=== PATIENT | female | born 1970 | race Caucasian/White ===

== ENCOUNTER 2016-12-15 08:40 | Emergency (ER) | payer OTHER ==
[2016-12-15] MEDS ORDERED: METOCLOPRAMIDE INJ 10MG/2ML VIAL (J2765) As Ordered ONE (09:26)
[2016-12-15] MEDS ORDERED: diphenhydrAMINE INJ 50MG/ML VIAL (J1200) As Ordered ONE (09:26)
[2016-12-15] MEDS ORDERED: ISOVUE-370 76% 100ML VIAL (Q9967) As Ordered ONE (09:41)
[2016-12-15 10:02] LABS: BASO % 0.3 % (0.0-1.0); EOS # 0.1 K/mm3 (0.0-0.50); EOS % 0.7 % (0.0-3.0); LARGE UNSTAINED CELL # 0.1 K/mm3 (0.0-0.4); LARGE UNSTAINED CELL % 1.1 % (0.0-4.0); LYMPH # 1.6 K/mm3 (1.5-4.5); LYMPH % 17.7 % (24.0-44.0); MEAN CORPUSCULAR HGB CONC 32.7 g/dl (32.0-36.5); MEAN CORPUSCULAR VOLUME 91.8 fl (80.0-96.0); MONO # 0.4 K/mm3 (0.0-0.8); MONO % 4.2 % (0.0-5.0); NEUTROPHILS % 76.1 % (36.0-66.0); PLATELET COUNT, AUTOMATED 394 k/mm3 (150-450); WHITE BLOOD COUNT 9.1 K/mm3 (4.0-10.0)
[2016-12-15 10:16] LABS: ALBUMIN 4.1 GM/DL (3.2-5.2); ALBUMIN/GLOBULIN RATIO 1.14 (1.00-1.93); ALKALINE PHOSPHATASE 75 U/L (45-117); ALT/SGPT 20 U/L (12-78); AMYLASE 74 U/L (25-115); ANION GAP 8 MEQ/L (8-16); AST/SGOT 13 U/L (15-37); BILIRUBIN,DIRECT < 0.1 MG/DL (0.0-0.2); BILIRUBIN,TOTAL 0.3 MG/DL (0.2-1.0); BLOOD UREA NITROGEN 8 MG/DL (7-18); CARBON DIOXIDE LEVEL 27 MEQ/L (21-32); CHLORIDE LEVEL 106 MEQ/L (98-107); CREATININE FOR GFR 0.72 MG/DL (0.55-1.02); GLOMERULAR FILTRATION RATE > 60.0 (>58); GLUCOSE, FASTING 97 MG/DL (70-105); POTASSIUM SERUM 3.8 MEQ/L (3.5-5.1); SODIUM LEVEL 141 MEQ/L (136-145); TOTAL PROTEIN 7.7 GM/DL (6.4-8.2)
--- NOTE | 2016-12-15 12:22 | EDDOCDS ---
Physician Documentation [facility] Name: Veronica Wiggins Age: 46 yrs Sex: Female : 1970 Arrival Date: 12/15/2016 Time: 08:40 Bed TR8 Private MD: Dorcas Monk Disposition: 12/15/16 11:55 Discharged to Home/Self Care. Impression: Left upper quadrant abdominal tenderness. - Condition is Stable. - Discharge Instructions: Abdominal Pain, Women. - Prescriptions for Bentyl 10 mg Oral Capsule - take 1 capsule by ORAL route every 6 hours As needed; 40 capsule. - Medication Reconciliation, Local Pharmacy Hours form. - Follow up: Dorcas Monk; When: Call to arrange an appointment; Reason: Further diagnostic work-up, Recheck today's complaints, Continuance of care. - Problem is new. - Symptoms have improved. Historical: - Allergies: no known allergies; - Home Meds: 1. levothyroxine 175 mcg Oral tab 1 tab once daily - PMHx: possible thyroid CA; - PSHx: Thyroidectomy; Cesearean Section; Laparoscopy; - Social history: Smoking status: Patient states former smoker of tobacco. No barriers to communication noted, The patient speaks fluent Indian. - Family history: Not pertinent. - : The pt / caregiver states he / she is not on anticoagulants. Home medication list is obtained from the patient. - Exposure Risk Screening:: None identified. 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 3 in. (160.02 cm) (R); Pain 7/10; 10:43 BP 114 / 68; Pulse 70; Resp 16; Temp 97.7(O); Pulse Ox 98% on R/A; Pain 3/10; dem1 12:03 BP 109 / 65; Pulse 73; Resp 16; Temp 97.4(O); Pulse Ox 98% on R/A; Pain 3/10; dem1 08:52 Body Mass Index 28.70 (73.48 kg, 160.02 cm) j MDM: 09:04 Financial registration complete. lg 09:10 [facility] Payment Agreement was scanned into [employer] and attached to record. lg 09:20 NS 0.9% 1000 ml IV at bolus once ordered. btw 09:20 IV Saline Lock ordered. btw 09:20 Undress patient appropriately for examination ordered. btw 09:20 Metoclopramide 20 mg IV at 80 mg/hr once over 15 mins ordered. btw 09:20 diphenhydrAMINE 50 mg IVP once ordered. btw 09:21 Amylase Ordered. EDMS 09:21 Basic Metabolic Profile Ordered. EDMS 09:21 CBC with Diff Ordered. EDMS 09:21 Lipase Ordered. EDMS 09:21 Liver Profile Ordered. EDMS 09:21 Urinalysis Ordered. EDMS 09:21 Urine Culture Ordered. EDMS 09:21 CT ABD & PELVIS: IV Contrast Only Ordered. EDMS 09:21 NOTHING BY MOUTH+DIET ordered. EDMS 10:26 CBC with Diff Reviewed. btw 10:26 Liver Profile Reviewed. btw 10:26 Urinalysis Reviewed. btw 10:26 Amylase Reviewed. btw 10:26 Basic Metabolic Profile Reviewed. btw 10:26 Lipase Reviewed. btw Administered Medications: 09:48 Drug: NS 0.9% 1000 ml [sodium chloride 0.9 % intravenous solution] Route: IV; Rate: kc3 bolus; Site: left antecubital; 09:48 Drug: Metoclopramide 20 mg [metoclopramide 5 mg/mL injection solution] Route: IV; Rate: kc3 80 mg/hr; Infused Over: 15 mins; Site: left antecubital; 09:48 Drug: diphenhydrAMINE 50 mg [diphenhydramine 50 mg/mL injection solution (1 mL)] Route: kc3 IVP; Site: left antecubital; 10:07 Follow up: Response: Pain is decreased kc3 Signatures: Dispatcher [employer] EDNicole Sanchez Reg Reg lg Raymond, Jessica, RN RN Adonis Mackenzie PA PA btw Janay Lemus RN RN kc3 The chart was reviewed and I authenticate all verbal orders and agree with the evaluation and treatment provided.Attachments: 09:10 [facility] Payment Agreement lg MTDD
--- NOTE | 2016-12-15 12:22 | EDDOCDS ---
Nurse's Notes [facility] Name: Veronica Wiggins Age: 46 yrs Sex: Female : 1970 Arrival Date: 12/15/2016 Time: 08:40 Bed TR8 Private MD: Dorcas Monk Diagnosis: Left upper quadrant abdominal tenderness Presentation: 12/15 08:49 Presenting complaint: Patient states: LUQ pain radiating to rest of abdomen and back jjr began a little over a week ago, pt reports bloating and nausea with meals for past week, did have loose bowel movements last week, Dorcas Monk PCP ordered US and xrays completed this past Sunday with no significant findings. Acute neurological deficits are not present. Mechanism of Injury: No Mechanism of Injury. Adult Sepsis Screening: The patient does not have new or worsening altered mentation. Patient's respiratory rate is less than 22. Systolic blood pressure is greater than 100. Patient has a qSOFA score of 0- Negative Sepsis Screen. Suicide/Homicide risk assessment- the patient denies having any suicidal and/or homicidal ideations and does not present with any other emotional, behavioral or mental health complaints. 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 Transition of care: patient was received from a primary care office; Dorcas Monk. 08:49 Acuity: NEMO Level 3 r 08:49 Method Of Arrival: Walkin/Carried/Asstd jjr Triage Assessment: 08:55 General: Appears uncomfortable, Behavior is appropriate for age. Pain: Location: left jjr upper quadrant. Pt Declines HIV testing. GI: Reports bloating, upper abdominal pain, nausea. : Reports vaginal bleeding that is spotty since 2 days ago. Musculoskeletal: No deficits noted. 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 levothyroxine 175 mcg Oral tab 1 tab once daily - PMHx: possible thyroid CA; - PSHx: Thyroidectomy; Cesearean Section; Laparoscopy; - Social history: Smoking status: Patient states former smoker of tobacco. No barriers to communication noted, The patient speaks fluent Setswana. - Family history: Not pertinent. - : The pt / caregiver states he / she is not on anticoagulants. Home medication list is obtained from the patient. - Exposure Risk Screening:: None identified. Screenin:49 Screening information is obtained from the patient. Fall risk: No risks identified. kc3 Assistance ADL's: requires no assistance with activities of daily living. Abuse/DV Screen: The patient / caregiver reports he/she is: not in a situation that causes fear, pain or injury. Nutritional screening: No deficits noted. Advance Directives: Currently, there is no health care proxy. home support is adequate. Assessment: 09:48 General: Appears uncomfortable, Behavior is appropriate for age, cooperative. Pain: kc3 Location: left upper quadrant. Neurological: Level of Consciousness is awake, alert, obeys commands, Oriented to person, place, time. Respiratory: Airway is patent Respiratory effort is even, unlabored. GI: Abdomen is non- distended Bowel sounds present X 4 quads. Abd is soft Abd is tender to palpation in left upper quadrant Reports upper abdominal pain, nausea. Derm: Skin is pink, warm & dry. Musculoskeletal: Circulation, motion, and sensation intact. 11:00 Reassessment: Patient appears in no apparent distress at this time. Patient states kc3 feeling better. Patient states symptoms have improved. 12:19 General: Appears in no apparent distress, comfortable, Behavior is appropriate for age, kc3 cooperative. Neurological: Level of Consciousness is awake, alert, obeys commands, Oriented to person, place, time. Respiratory: Airway is patent Respiratory effort is even, unlabored. Derm: Skin is pink, warm & dry. Vital Signs: 08:52 BP 143 / 87; Pulse 107; Resp 18; Temp 97.8(O); Pulse Ox 100% on R/A; Weight 73.48 kg [facility] (R); Height 5 ft. 3 in. (160.02 cm) (R); Pain 7/10; 10:43 BP 114 / 68; Pulse 70; Resp 16; Temp 97.7(O); Pulse Ox 98% on R/A; Pain 3/10; dem1 12:03 BP 109 / 65; Pulse 73; Resp 16; Temp 97.4(O); Pulse Ox 98% on R/A; Pain 3/10; dem1 08:52 Body Mass Index 28.70 (73.48 kg, 160.02 cm) [facility] Vitals: 08:52 Log In Time: December 15, 2016 at 08:38. [facility] ED Course: 08:41 Patient visited by Fatemeh Jernigan. mm15 08:41 Dorcas Monk is Private Physician. mm15 08:41 Patient moved to Waiting mm15 08:51 Triage Initiated jjr 08:57 Patient moved to Triage 1 jjr 09:03 Adonis Box PA is PHCP. btw 09:03 Shine Marquez MD is Attending Physician. btw 09:03 Patient visited by Adonis Box PA. btw 09:10 [facility] Payment Agreement was scanned into [employer] and attached to record. lg 09:23 Patient moved to I3 / M3 jjr 09:47 Liver Profile Sent. kc3 09:47 Lipase Sent. kc3 09:47 CBC with Diff Sent. kc3 09:47 Basic Metabolic Profile Sent. kc3 09:47 Amylase Sent. kc3 09:50 The patient / caregiver is instructed regarding the plan of care and ED course. kc3 09:50 Inserted saline lock: 20 gauge in left antecubital area and blood collected. The kc3 patient tolerated the procedure well. Labs drawn. (by ED staff). Sent per order to lab. 09:51 Patient visited by Janay Lemus RN. kc3 10:27 Patient visited by Janay Lemus RN. kc3 10:28 Patient moved to DC dem1 10:36 Patient moved to I3 / kc3 10:43 Patient visited by Adolph Armendariz. dem1 11:55 Dorcas Monk is Referral Physician. btw 12:04 Patient visited by Adolph Armendariz. dem1 12:12 Patient moved to [facility] dem1 12:20 Discontinued IV lock intact, bleeding controlled, pressure dressing applied, No kc3 redness/swelling at site. No procedures done that require assistance. Administered Medications: 09:48 Drug: NS 0.9% 1000 ml [sodium chloride 0.9 % intravenous solution] Route: IV; Rate: kc3 bolus; Site: left antecubital; :48 Drug: Metoclopramide 20 mg [metoclopramide 5 mg/mL injection solution] Route: IV; Rate: kc3 80 mg/hr; Infused Over: 15 mins; Site: left antecubital; 09:48 Drug: diphenhydrAMINE 50 mg [diphenhydramine 50 mg/mL injection solution (1 mL)] Route: kc3 IVP; Site: left antecubital; 10:07 Follow up: Response: Pain is decreased kc3 Order Results: Lab Order: Amylase; 12/15/16 09:25 Test: AMYLASE; Value: 74; Range: 25-115; Units: U/L; Status: F Lab Order: Basic Metabolic Profile; 12/15/16 09:25 Test: GLUCOSE, FASTING; Value: 97; Range: 70-105; Units: MG/DL; Status: F Test: BLOOD UREA NITROGEN; Value: 8; Range: 7-18; Units: MG/DL; Status: F Test: CREATININE FOR GFR; Value: 0.72; Range: 0.55-1.02; Units: MG/DL; Status: F Test: GLOMERULAR FILTRATION RATE; Value: > 60.0; Range: >58; Status: F Test: SODIUM LEVEL; Value: 141; Range: 136-145; Units: MEQ/L; Status: F Test: POTASSIUM SERUM; Value: 3.8; Range: 3.5-5.1; Units: MEQ/L; Status: F Test: CHLORIDE LEVEL; Value: 106; Range: 98-107; Units: MEQ/L; Status: F Test: CARBON DIOXIDE LEVEL; Value: 27; Range: 21-32; Units: MEQ/L; Status: F Test: ANION GAP; Value: 8; Range: 8-16; Units: MEQ/L; Status: F Test: CALCIUM LEVEL; Value: 9.0; Range: 8.5-10.1; Units: MG/DL; Status: F Test Note: ; Units are mL/min/1.73 m2 Chronic Kidney Disease Staging per NKF: Stage I & II GFR >=60 Normal to Mildly Decreased Stage III GFR 30-59 Moderately Decreased Stage IV GFR 15-29 Severely Decreased Stage V GFR <15 Very Little GFR Left ESRD GFR <15 on TICKETER Lab Order: CBC with Diff; 12/15/16 09:25 Test: WHITE BLOOD COUNT; Value: 9.1; Range: 4.0-10.0; Units: K/mm3; Status: F Test: RED BLOOD COUNT; Value: 4.78; Range: 4.00-5.40; Units: M/mm3; Status: F Test: HEMOGLOBIN; Value: 14.3; Range: 12.0-16.0; Units: g/dl; Status: F Test: HEMATOCRIT; Value: 43.8; Range: 36.0-47.0; Units: %; Status: F Test: MEAN CORPUSCULAR VOLUME; Value: 91.8; Range: 80.0-96.0; Units: fl; Status: F Test: MEAN CORPUSCULAR HEMOGLOBIN; Value: 30.0; Range: 27.0-33.0; Units: pg; Status: F Test: MEAN CORPUSCULAR HGB CONC; Value: 32.7; Range: 32.0-36.5; Units: g/dl; Status: F Test: RED CELL DISTRIBUTION WIDTH; Value: 12.0; Range: 11.5-14.5; Units: %; Status: F Test: PLATELET COUNT, AUTOMATED; Value: 394; Range: 150-450; Units: k/mm3; Status: F Test: NEUTROPHILS %; Value: 76.1; Range: 36.0-66.0; Abnormal: Above high normal; Units: %; Status: F Test: LYMPH %; Value: 17.7; Range: 24.0-44.0; Abnormal: Below low normal; Units: %; Status: F Test: MONO %; Value: 4.2; Range: 0.0-5.0; Units: %; Status: F Test: EOS %; Value: 0.7; Range: 0.0-3.0; Units: %; Status: F Test: BASO %; Value: 0.3; Range: 0.0-1.0; Units: %; Status: F Test: LARGE UNSTAINED CELL %; Value: 1.1; Range: 0.0-4.0; Units: %; Status: F Test: NEUTROPHILS #; Value: 7.0; Range: 1.8-7.7; Units: K/mm3; Status: F Test: LYMPH #; Value: 1.6; Range: 1.5-4.5; Units: K/mm3; Status: F Test: MONO #; Value: 0.4; Range: 0.0-0.8; Units: K/mm3; Status: F Test: EOS #; Value: 0.1; Range: 0.0-0.50; Units: K/mm3; Status: F Test: BASO #; Value: 0.0; Range: 0.0-0.2; Units: K/mm3; Status: F Test: LARGE UNSTAINED CELL #; Value: 0.1; Range: 0.0-0.4; Units: K/mm3; Status: F Lab Order: Lipase; [facility] 12/15/16 09:25 Test: LIPASE; Value: 277; Range: 73-393; Units: U/L; Status: F Lab Order: Liver Profile; [facility] 12/15/16 09:25 Test: AST/SGOT; Value: 13; Range: 15-37; Abnormal: Below low normal; Units: U/L; Status: F Test: ALT/SGPT; Value: 20; Range: 12-78; Units: U/L; Status: F Test: ALKALINE PHOSPHATASE; Value: 75; Range: 45-117; Units: U/L; Status: F Test: BILIRUBIN,TOTAL; Value: 0.3; Range: 0.2-1.0; Units: MG/DL; Status: F Test: BILIRUBIN,DIRECT; Value: < 0.1; Range: 0.0-0.2; Units: MG/DL; Status: F Test: TOTAL PROTEIN; Value: 7.7; Range: 6.4-8.2; Units: GM/DL; Status: F Test: ALBUMIN; Value: 4.1; Range: 3.2-5.2; Units: GM/DL; Status: F Test: ALBUMIN/GLOBULIN RATIO; Value: 1.14; Range: 1.00-1.93; Status: F Lab Order: Urinalysis; [facility] 12/15/16 09:27 Test: APPEARANCE, URINE; Value: CLEAR; Range: CLEAR; Status: F Test: COLOR, URINE; Value: YELLOW; Range: YELLOW; Status: F Test: PH,URINE; Value: 5.0; Range: 5.0-9.0; Units: UNITS; Status: F Test: SPECIFIC GRAVITY URINE AUTO; Value: 1.011; Range: 1.002-1.035; Status: F Test: PROTEIN, URINE AUTO; Value: NEGATIVE; Range: NEGATIVE; Units: mg/dL; Status: F Test: GLUCOSE, URINE (UA) AUTO; Value: NEGATIVE; Range: NEGATIVE; Units: mg/dL; Status: F Test: KETONE, URINE AUTO; Value: NEGATIVE; Range: NEGATIVE; Units: mg/dL; Status: F Test: UROBILINOGEN, URINE AUTO; Value: 0.2; Range: 0.0-2.0; Units: mg/dL; Status: F Test: BILIRUBIN, URINE AUTO; Value: NEGATIVE; Range: NEGATIVE; Status: F Test: NITRITE, URINE AUTO; Value: NEGATIVE; Range: NEGATIVE; Status: F Test: LEUKOCYTE ESTERASE, URINE AUTO; Value: NEGATIVE; Range: NEGATIVE; Status: F Test: BLOOD, URINE BLOOD; Value: 2+; Range: NEGATIVE; Abnormal: Above high normal; Status: F Test: WBC, URINE AUTO; Value: 1; Range: 0-3; Units: /HPF; Status: F Test: RBC, URINE AUTO; Value: 5; Range: 0-3; Abnormal: Above high normal; Units: /HPF; Status: F Test: BACTERIA, URINE AUTO; Value: NEGATIVE; Range: NEGATIVE; Status: F Test: SQUAMOUS EPITHELIAL CELL UR AU; Value: 0; Range: 0-6; Units: /HPF; Status: F Test: MUCUS, URINE; Value: SMALL; Range: NEGATIVE; Status: F Test: HYALINE CAST, URINE AUTO; Value: 0; Range: 0-1; Units: /LPF; Status: F Outcome: 10:36 CT Study completed. 3 11:55 Discharge ordered by Provider. [facility] 12:20 Discharge Assessment: Patient awake, alert and oriented x 3. No cognitive and/or kc3 functional deficits noted. Patient verbalized understanding of disposition instructions. patient administered narcotics - no. The following High Risk Discharge criteria are identified: None. Discharged to home ambulatory. Condition: stable. Discharge instructions given to patient, Instructed on discharge instructions, follow up and referral plans. medication usage, Demonstrated understanding of instructions, medications, Pt was receptive of discharge instructions/ teaching. Prescriptions given X 1. Property :Personal belongings accompany Pt. 12:21 Patient left the ED. kc3 Signatures: Nicole Pereira, Ivelisse Mauricio lg RN RN Adonis Mackenzie PA PA btw Adolph Armendariz1 Fatemeh Jernigan mm15 Janay Lemus,RN RN kc3 MTDD
--- NOTE | 2016-12-15 12:27 | REP ---
CT study of the abdomen and pelvis with IV but without oral contrast: History: Left upper quadrant abdominal pain. Comparison KUB study December 11, 2016. CT contrast dose: 100 ml of Isovue 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 The lung bases are clear. The liver and the spleen are normal in size and homogeneous in texture on postcontrast CT images. No adrenal lesion is seen on either side. Pancreas and gallbladder show no abnormality. The kidneys enhance symmetrically and are morphologically intact. Normal caliber aorta is seen. No retroperitoneal mass or adenopathy is seen. Normal appendix is seen in the right lower quadrant. A vaginal tampon is noted in place. A Nabothian cyst is seen in the cervix. No uterine or ovarian abnormality is seen. There is mild diverticulosis affecting the sigmoid colon and descending colon. There is no CT evidence of diverticulitis. Small and large intestinal bowel loops are normal in the abdomen and pelvis. No abdominal wall defect is seen. Urinary bladder is unremarkable. Bone window settings show no bony destructive lesion. Impression: Left colonic diverticulosis without CT evidence of diverticulitis. Otherwise negative CT study of the abdomen and pelvis with IV contrast. Normal appendix seen. Signed by Prem Grey MD 12/15/2016 07:24 P
--- NOTE | 2016-12-17 13:21 | EDDOCDS ---
Nurse's Notes [facility] Name: Veronica Wiggins Age: 46 yrs Sex: Female : 1970 Arrival Date: 12/15/2016 Time: 08:40 Bed TR8 Private MD: Dorcas Monk Diagnosis: Left upper quadrant abdominal tenderness Presentation: 12/15 08:49 Presenting complaint: Patient states: LUQ pain radiating to rest of abdomen and back jjr began a little over a week ago, pt reports bloating and nausea with meals for past week, did have loose bowel movements last week, Dorcas Monk PCP ordered US and xrays completed this past Sunday with no significant findings. Acute neurological deficits are not present. Mechanism of Injury: No Mechanism of Injury. Adult Sepsis Screening: The patient does not have new or worsening altered mentation. Patient's respiratory rate is less than 22. Systolic blood pressure is greater than 100. Patient has a qSOFA score of 0- Negative Sepsis Screen. Suicide/Homicide risk assessment- the patient denies having any suicidal and/or homicidal ideations and does not present with any other emotional, behavioral or mental health complaints. Status: Patient is not a service operator or dependent. Transition of care: patient was received from a primary care office; Dorcas Monk. 08:49 Acuity: NEMO Level 3 r 08:49 Method Of Arrival: Walkin/Carried/Asstd jjr Triage Assessment: 08:55 General: Appears uncomfortable, Behavior is appropriate for age. Pain: Location: left jjr upper quadrant. Pt Declines HIV testing. GI: Reports bloating, upper abdominal pain, nausea. : Reports vaginal bleeding that is spotty since 2 days ago. Musculoskeletal: No deficits noted. 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 levothyroxine 175 mcg Oral tab 1 tab once daily - PMHx: possible thyroid CA; - PSHx: Thyroidectomy; Cesearean Section; Laparoscopy; - Social history: Smoking status: Patient states former smoker of tobacco. No barriers to communication noted, The patient speaks fluent Albanian. - Family history: Not pertinent. - : The pt / caregiver states he / she is not on anticoagulants. Home medication list is obtained from the patient. - Exposure Risk Screening:: None identified. Screenin:49 Screening information is obtained from the patient. Fall risk: No risks identified. kc3 Assistance ADL's: requires no assistance with activities of daily living. Abuse/DV Screen: The patient / caregiver reports he/she is: not in a situation that causes fear, pain or injury. Nutritional screening: No deficits noted. Advance Directives: Currently, there is no health care proxy. home support is adequate. Assessment: 09:48 General: Appears uncomfortable, Behavior is appropriate for age, cooperative. Pain: kc3 Location: left upper quadrant. Neurological: Level of Consciousness is awake, alert, obeys commands, Oriented to person, place, time. Respiratory: Airway is patent Respiratory effort is even, unlabored. GI: Abdomen is non- distended Bowel sounds present X 4 quads. Abd is soft Abd is tender to palpation in left upper quadrant Reports upper abdominal pain, nausea. Derm: Skin is pink, warm & dry. Musculoskeletal: Circulation, motion, and sensation intact. 11:00 Reassessment: Patient appears in no apparent distress at this time. Patient states kc3 feeling better. Patient states symptoms have improved. 12:19 General: Appears in no apparent distress, comfortable, Behavior is appropriate for age, kc3 cooperative. Neurological: Level of Consciousness is awake, alert, obeys commands, Oriented to person, place, time. Respiratory: Airway is patent Respiratory effort is even, unlabored. Derm: Skin is pink, warm & dry. Vital Signs: 08:52 BP 143 / 87; Pulse 107; Resp 18; Temp 97.8(O); Pulse Ox 100% on R/A; Weight 73.48 kg [facility] (R); Height 5 ft. 3 in. (160.02 cm) (R); Pain 7/10; 10:43 BP 114 / 68; Pulse 70; Resp 16; Temp 97.7(O); Pulse Ox 98% on R/A; Pain 3/10; dem1 12:03 BP 109 / 65; Pulse 73; Resp 16; Temp 97.4(O); Pulse Ox 98% on R/A; Pain 3/10; dem1 08:52 Body Mass Index 28.70 (73.48 kg, 160.02 cm) [facility] Vitals: 08:52 Log In Time: December 15, 2016 at 08:38. [facility] ED Course: 08:41 Patient visited by Fatemeh Jernigan. mm15 08:41 Dorcas Monk is Private Physician. mm15 08:41 Patient moved to Waiting mm15 08:51 Triage Initiated jjr 08:57 Patient moved to Triage 1 jjr 09:03 Adonis Box PA is PHCP. btw 09:03 Shine Marquez MD is Attending Physician. btw 09:03 Patient visited by Adonis Box PA. btw 09:10 [facility] Payment Agreement was scanned into [email or web address] and attached to record. lg 09:23 Patient moved to I3 / M3 jjr 09:47 Liver Profile Sent. kc3 09:47 Lipase Sent. kc3 09:47 CBC with Diff Sent. kc3 09:47 Basic Metabolic Profile Sent. kc3 09:47 Amylase Sent. kc3 09:50 The patient / caregiver is instructed regarding the plan of care and ED course. kc3 09:50 Inserted saline lock: 20 gauge in left antecubital area and blood collected. The kc3 patient tolerated the procedure well. Labs drawn. (by ED staff). Sent per order to lab. 09:51 Patient visited by Janay Lemus RN. kc3 10:27 Patient visited by Janay Lemus RN. kc3 10:[address] dem1 10:36 Patient moved to I3 / M3 kc3 10:43 Patient visited by Adolph Armendariz. dem1 11:55 Dorcas Monk is Referral Physician. btw 12:04 Patient visited by Adolph Armendariz. dem1 12:12 Patient moved to TR8 dem1 12:20 Discontinued IV lock intact, bleeding controlled, pressure dressing applied, No kc3 redness/swelling at site. No procedures done that require assistance. 12:37 CT ABD & PELVIS: IV Contrast Only Returned. EDMS 15:15 T-Sheet-- Draft Copy was scanned into [email or web address] and attached to record. gb Administered Medications: 09:48 Drug: NS 0.9% 1000 ml [sodium chloride 0.9 % intravenous solution] Route: IV; Rate: kc3 bolus; Site: left antecubital; 09:48 Drug: Metoclopramide 20 mg [metoclopramide 5 mg/mL injection solution] Route: IV; Rate: kc3 80 mg/hr; Infused Over: 15 mins; Site: left antecubital; 09:48 Drug: diphenhydrAMINE 50 mg [diphenhydramine 50 mg/mL injection solution (1 mL)] Route: kc3 IVP; Site: left antecubital; 10:07 Follow up: Response: Pain is decreased kc3 Order Results: Lab Order: Amylase; SPEC'12/15/16 09:25 Test: AMYLASE; Value: 74; Range: 25-115; Units: U/L; Status: F Lab Order: Basic Metabolic Profile; SPEC'12/15/16 09:25 Test: GLUCOSE, FASTING; Value: 97; Range: 70-105; Units: MG/DL; Status: F Test: BLOOD UREA NITROGEN; Value: 8; Range: 7-18; Units: MG/DL; Status: F Test: CREATININE FOR GFR; Value: 0.72; Range: 0.55-1.02; Units: MG/DL; Status: F Test: GLOMERULAR FILTRATION RATE; Value: > 60.0; Range: >58; Status: F Test: SODIUM LEVEL; Value: 141; Range: 136-145; Units: MEQ/L; Status: F Test: POTASSIUM SERUM; Value: 3.8; Range: 3.5-5.1; Units: MEQ/L; Status: F Test: CHLORIDE LEVEL; Value: 106; Range: 98-107; Units: MEQ/L; Status: F Test: CARBON DIOXIDE LEVEL; Value: 27; Range: 21-32; Units: MEQ/L; Status: F Test: ANION GAP; Value: 8; Range: 8-16; Units: MEQ/L; Status: F Test: CALCIUM LEVEL; Value: 9.0; Range: 8.5-10.1; Units: MG/DL; Status: F Test Note: ; Units are mL/min/1.73 m2 Chronic Kidney Disease Staging per NKF: Stage I & II GFR >=60 Normal to Mildly Decreased Stage III GFR 30-59 Moderately Decreased Stage IV GFR 15-29 Severely Decreased Stage V GFR <15 Very Little GFR Left ESRD GFR <15 on CUSTOMER ACCOUNT MANAGER Lab Order: CBC with Diff; SPEC12/15/16 09:25 Test: WHITE BLOOD COUNT; Value: 9.1; Range: 4.0-10.0; Units: K/mm3; Status: F Test: RED BLOOD COUNT; Value: 4.78; Range: 4.00-5.40; Units: M/mm3; Status: F Test: HEMOGLOBIN; Value: 14.3; Range: 12.0-16.0; Units: g/dl; Status: F Test: HEMATOCRIT; Value: 43.8; Range: 36.0-47.0; Units: %; Status: F Test: MEAN CORPUSCULAR VOLUME; Value: 91.8; Range: 80.0-96.0; Units: fl; Status: F Test: MEAN CORPUSCULAR HEMOGLOBIN; Value: 30.0; Range: 27.0-33.0; Units: pg; Status: F Test: MEAN CORPUSCULAR HGB CONC; Value: 32.7; Range: 32.0-36.5; Units: g/dl; Status: F Test: RED CELL DISTRIBUTION WIDTH; Value: 12.0; Range: 11.5-14.5; Units: %; Status: F Test: PLATELET COUNT, AUTOMATED; Value: 394; Range: 150-450; Units: k/mm3; Status: F Test: NEUTROPHILS %; Value: 76.1; Range: 36.0-66.0; Abnormal: Above high normal; Units: %; Status: F Test: LYMPH %; Value: 17.7; Range: 24.0-44.0; Abnormal: Below low normal; Units: %; Status: F Test: MONO %; Value: 4.2; Range: 0.0-5.0; Units: %; Status: F Test: EOS %; Value: 0.7; Range: 0.0-3.0; Units: %; Status: F Test: BASO %; Value: 0.3; Range: 0.0-1.0; Units: %; Status: F Test: LARGE UNSTAINED CELL %; Value: 1.1; Range: 0.0-4.0; Units: %; Status: F Test: NEUTROPHILS #; Value: 7.0; Range: 1.8-7.7; Units: K/mm3; Status: F Test: LYMPH #; Value: 1.6; Range: 1.5-4.5; Units: K/mm3; Status: F Test: MONO #; Value: 0.4; Range: 0.0-0.8; Units: K/mm3; Status: F Test: EOS #; Value: 0.1; Range: 0.0-0.50; Units: K/mm3; Status: F Test: BASO #; Value: 0.0; Range: 0.0-0.2; Units: K/mm3; Status: F Test: LARGE UNSTAINED CELL #; Value: 0.1; Range: 0.0-0.4; Units: K/mm3; Status: F Lab Order: Lipase; [facility]' 12/15/16 09:25 Test: LIPASE; Value: 277; Range: 73-393; Units: U/L; Status: F Lab Order: Liver Profile; [facility]' 12/15/16 09:25 Test: AST/SGOT; Value: 13; Range: 15-37; Abnormal: Below low normal; Units: U/L; Status: F Test: ALT/SGPT; Value: 20; Range: 12-78; Units: U/L; Status: F Test: ALKALINE PHOSPHATASE; Value: 75; Range: 45-117; Units: U/L; Status: F Test: BILIRUBIN,TOTAL; Value: 0.3; Range: 0.2-1.0; Units: MG/DL; Status: F Test: BILIRUBIN,DIRECT; Value: < 0.1; Range: 0.0-0.2; Units: MG/DL; Status: F Test: TOTAL PROTEIN; Value: 7.7; Range: 6.4-8.2; Units: GM/DL; Status: F Test: ALBUMIN; Value: 4.1; Range: 3.2-5.2; Units: GM/DL; Status: F Test: ALBUMIN/GLOBULIN RATIO; Value: 1.14; Range: 1.00-1.93; Status: F Lab Order: Urinalysis; [facility] 12/15/16 09:27 Test: APPEARANCE, URINE; Value: CLEAR; Range: CLEAR; Status: F Test: COLOR, URINE; Value: YELLOW; Range: YELLOW; Status: F Test: PH,URINE; Value: 5.0; Range: 5.0-9.0; Units: UNITS; Status: F Test: SPECIFIC GRAVITY URINE AUTO; Value: 1.011; Range: 1.002-1.035; Status: F Test: PROTEIN, URINE AUTO; Value: NEGATIVE; Range: NEGATIVE; Units: mg/dL; Status: F Test: GLUCOSE, URINE (UA) AUTO; Value: NEGATIVE; Range: NEGATIVE; Units: mg/dL; Status: F Test: KETONE, URINE AUTO; Value: NEGATIVE; Range: NEGATIVE; Units: mg/dL; Status: F Test: UROBILINOGEN, URINE AUTO; Value: 0.2; Range: 0.0-2.0; Units: mg/dL; Status: F Test: BILIRUBIN, URINE AUTO; Value: NEGATIVE; Range: NEGATIVE; Status: F Test: NITRITE, URINE AUTO; Value: NEGATIVE; Range: NEGATIVE; Status: F Test: LEUKOCYTE ESTERASE, URINE AUTO; Value: NEGATIVE; Range: NEGATIVE; Status: F Test: BLOOD, URINE BLOOD; Value: 2+; Range: NEGATIVE; Abnormal: Above high normal; Status: F Test: WBC, URINE AUTO; Value: 1; Range: 0-3; Units: /HPF; Status: F Test: RBC, URINE AUTO; Value: 5; Range: 0-3; Abnormal: Above high normal; Units: /HPF; Status: F Test: BACTERIA, URINE AUTO; Value: NEGATIVE; Range: NEGATIVE; Status: F Test: SQUAMOUS EPITHELIAL CELL UR AU; Value: 0; Range: 0-6; Units: /HPF; Status: F Test: MUCUS, URINE; Value: SMALL; Range: NEGATIVE; Status: F Test: HYALINE CAST, URINE AUTO; Value: 0; Range: 0-1; Units: /LPF; Status: F Lab Order: Urine Culture; SPEC'M 12/15/16 09:27 Test: URINE CULTURE; Value: <EXTERNAL COMMENT eCWMed> FULL REPORT IN LAB NOTES (eCW and Medent).; Status: F Test: URINE CULTURE; Value: URINE CULTURE RESULT; Status: F Test: URINE CULTURE; Value: NO GROWTH CLINICAL SIGNIFICANCE 2 OR MORE ORGANISMS; Status: F Radiology Order: CT ABD & PELVIS: IV Contrast Only Test: CT ABD & PELVIS: IV Contrast Only REASON FOR EXAMINATION: LUQ ABD PAIN; CT study of the abdomen and pelvis with IV but without oral contrast:; ; History: Left upper quadrant abdominal pain.; ; Comparison KUB study December 11, 2016.; ; CT contrast dose: 100 ml of Isovue 370 is administered intravenously.; ; CT findings: Digital geriatric social worker radiograph shows an unremarkable bowel gas pattern.; The lung bases are clear. The liver and the spleen are normal in size and; homogeneous in texture on postcontrast CT images. No adrenal lesion is seen on; either side. Pancreas and gallbladder show no abnormality. The kidneys enhance; symmetrically and are morphologically intact. Normal caliber aorta is seen. No; retroperitoneal mass or adenopathy is seen. Normal appendix is seen in the right; lower quadrant. A vaginal tampon is noted in place. A Nabothian cyst is seen in; the cervix. No uterine or ovarian abnormality is seen. There is mild; diverticulosis affecting the sigmoid colon and descending colon. There is no CT; evidence of diverticulitis. Small and large intestinal bowel loops are normal in; the abdomen and pelvis. No abdominal wall defect is seen. Urinary bladder is; unremarkable. Bone window settings show no bony destructive lesion.; ; Impression:; ; Left colonic diverticulosis without CT evidence of diverticulitis. Otherwise; negative CT study of the abdomen and pelvis with IV contrast. Normal appendix; seen.; ; ; Signed by; Prem Grey MD 12/15/2016 07:24 P; Outcome: 10:36 CT Study completed. kc3 11:55 Discharge ordered by Provider. btw 12:20 Discharge Assessment: Patient awake, alert and oriented x 3. No cognitive and/or kc3 functional deficits noted. Patient verbalized understanding of disposition instructions. patient administered narcotics - no. The following High Risk Discharge criteria are identified: None. Discharged to home ambulatory. Condition: stable. Discharge instructions given to patient, Instructed on discharge instructions, follow up and referral plans. medication usage, Demonstrated understanding of instructions, medications, Pt was receptive of discharge instructions/ teaching. Prescriptions given X 1. Property :Personal belongings accompany Pt. 12:21 Patient left the ED. kc3 Signatures: Dispatcher [employer] EDMS Ingrid Peterson, Reg Reg gb Nicole Pereira, Reg Reg lg Ivelisse Quezada, FRANCISCO RN Adonis Mackenize PA PA btw Adolph Armendariz dem1 Fatemeh Jernigan mm15 Janay Lemus,FRANCISCO SINGH kc3 Chart Complete MTDD
--- NOTE | 2016-12-17 13:21 | EDDOCDS ---
Physician Documentation [facility] Name: Veronica Wiggins Age: 46 yrs Sex: Female : 1970 Arrival Date: 12/15/2016 Time: 08:40 Bed TR8 Private MD: Dorcas Monk Disposition: 12/15/16 11:55 Discharged to Home/Self Care. Impression: Left upper quadrant abdominal tenderness. - Condition is Stable. - Discharge Instructions: Abdominal Pain, Women. - Prescriptions for Bentyl 10 mg Oral Capsule - take 1 capsule by ORAL route every 6 hours As needed; 40 capsule. - Medication Reconciliation, Local Pharmacy Hours form. - Follow up: Dorcas Monk; When: Call to arrange an appointment; Reason: Further diagnostic work-up, Recheck today's complaints, Continuance of care. - Problem is new. - Symptoms have improved. Historical: - Allergies: no known allergies; - Home Meds: 1. levothyroxine 175 mcg Oral tab 1 tab once daily - PMHx: possible thyroid CA; - PSHx: Thyroidectomy; Cesearean Section; Laparoscopy; - Social history: Smoking status: Patient states former smoker of tobacco. No barriers to communication noted, The patient speaks fluent Swiss. - Family history: Not pertinent. - : The pt / caregiver states he / she is not on anticoagulants. Home medication list is obtained from the patient. - Exposure Risk Screening:: None identified. [employer]: 12/15 08:52 LMP 12/01/2016 [facility] Vital Signs: 08:52 BP 143 / 87; Pulse 107; Resp 18; Temp 97.8(O); Pulse Ox 100% on R/A; Weight 73.48 kg / jjr 162 lbs (R); Height 5 ft. 3 in. (160.02 cm) (R); Pain 7/10; 10:43 BP 114 / 68; Pulse 70; Resp 16; Temp 97.7(O); Pulse Ox 98% on R/A; Pain 3/10; dem1 12:03 BP 109 / 65; Pulse 73; Resp 16; Temp 97.4(O); Pulse Ox 98% on R/A; Pain 3/10; dem1 08:52 Body Mass Index 28.70 (73.48 kg, 160.02 cm) j MDM: 09:04 Financial registration complete. lg 09:10 [facility] Payment Agreement was scanned into [employer] and attached to record. lg 09:20 NS 0.9% 1000 ml IV at bolus once ordered. btw 09:20 IV Saline Lock ordered. btw 09:20 Undress patient appropriately for examination ordered. btw 09:20 Metoclopramide 20 mg IV at 80 mg/hr once over 15 mins ordered. btw 09:20 diphenhydrAMINE 50 mg IVP once ordered. btw 09:21 Amylase Ordered. EDMS 09:21 Basic Metabolic Profile Ordered. EDMS 09:21 CBC with Diff Ordered. EDMS 09:21 Lipase Ordered. EDMS 09:21 Liver Profile Ordered. EDMS 09:21 Urinalysis Ordered. EDMS 09:21 Urine Culture Ordered. EDMS 09:21 CT ABD & PELVIS: IV Contrast Only Ordered. EDMS 09:21 NOTHING BY MOUTH+DIET ordered. EDMS 10:26 CBC with Diff Reviewed. btw 10:26 Liver Profile Reviewed. btw 10:26 Urinalysis Reviewed. btw 10:26 Amylase Reviewed. btw 10:26 Basic Metabolic Profile Reviewed. btw 10:26 Lipase Reviewed. btw 15:15 T-Sheet-- Draft Copy was scanned into [employer] and attached to record. gb Administered Medications: 09:48 Drug: NS 0.9% 1000 ml [sodium chloride 0.9 % intravenous solution] Route: IV; Rate: kc3 bolus; Site: left antecubital; 09:48 Drug: Metoclopramide 20 mg [metoclopramide 5 mg/mL injection solution] Route: IV; Rate: kc3 80 mg/hr; Infused Over: 15 mins; Site: left antecubital; 09:48 Drug: diphenhydrAMINE 50 mg [diphenhydramine 50 mg/mL injection solution (1 mL)] Route: kc3 IVP; Site: left antecubital; 10:07 Follow up: Response: Pain is decreased kc3 Signatures: Dispatcher [employer] EDMS Ingrid Peterson, Reg Reg gb Nicole Pereira, Reg Reg lg Ivelisse Quezada, RN RN Adonis Mackenzie PA PA btw Janay Lemus,RN RN kc3 The chart was reviewed and I authenticate all verbal orders and agree with the evaluation and treatment provided.Attachments: 09:10 [facility] Payment Agreement lg 15:15 T-Sheet-- Draft Copy gb Chart Complete MTDD
--- NOTE | 2016-12-17 13:21 | EDDOCDS ---
Physician Documentation [facility] Name: Veronica Wiggins Age: 46 yrs Sex: Female : 1970 Arrival Date: 12/15/2016 Time: 08:40 Bed TR8 Private MD: Dorcas Monk Disposition: 12/15/16 11:55 Discharged to Home/Self Care. Impression: Left upper quadrant abdominal tenderness. - Condition is Stable. - Discharge Instructions: Abdominal Pain, Women. - Prescriptions for Bentyl 10 mg Oral Capsule - take 1 capsule by ORAL route every 6 hours As needed; 40 capsule. - Medication Reconciliation, Local Pharmacy Hours form. - Follow up: Dorcas Monk; When: Call to arrange an appointment; Reason: Further diagnostic work-up, Recheck today's complaints, Continuance of care. - Problem is new. - Symptoms have improved. Historical: - Allergies: no known allergies; - Home Meds: 1. levothyroxine 175 mcg Oral tab 1 tab once daily - PMHx: possible thyroid CA; - PSHx: Thyroidectomy; Cesearean Section; Laparoscopy; - Social history: Smoking status: Patient states former smoker of tobacco. No barriers to communication noted, The patient speaks fluent Ghanaian. - Family history: Not pertinent. - : The pt / caregiver states he / she is not on anticoagulants. Home medication list is obtained from the patient. - Exposure Risk Screening:: None identified. 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 3 in. (160.02 cm) (R); Pain 7/10; 10:43 BP 114 / 68; Pulse 70; Resp 16; Temp 97.7(O); Pulse Ox 98% on R/A; Pain 3/10; dem1 12:03 BP 109 / 65; Pulse 73; Resp 16; Temp 97.4(O); Pulse Ox 98% on R/A; Pain 3/10; dem1 08:52 Body Mass Index 28.70 (73.48 kg, 160.02 cm) j MDM: 09:04 Financial registration complete. lg 09:10 [facility] Payment Agreement was scanned into [employer] and attached to record. lg 09:20 NS 0.9% 1000 ml IV at bolus once ordered. btw 09:20 IV Saline Lock ordered. btw 09:20 Undress patient appropriately for examination ordered. btw 09:20 Metoclopramide 20 mg IV at 80 mg/hr once over 15 mins ordered. btw 09:20 diphenhydrAMINE 50 mg IVP once ordered. btw 09:21 Amylase Ordered. EDMS 09:21 Basic Metabolic Profile Ordered. EDMS 09:21 CBC with Diff Ordered. EDMS 09:21 Lipase Ordered. EDMS 09:21 Liver Profile Ordered. EDMS 09:21 Urinalysis Ordered. EDMS 09:21 Urine Culture Ordered. EDMS 09:21 CT ABD & PELVIS: IV Contrast Only Ordered. EDMS 09:21 NOTHING BY MOUTH+DIET ordered. EDMS 10:26 CBC with Diff Reviewed. btw 10:26 Liver Profile Reviewed. btw 10:26 Urinalysis Reviewed. btw 10:26 Amylase Reviewed. btw 10:26 Basic Metabolic Profile Reviewed. btw 10:26 Lipase Reviewed. btw 15:15 T-Sheet-- Draft Copy was scanned into [employer] and attached to record. gb Administered Medications: 09:48 Drug: NS 0.9% 1000 ml [sodium chloride 0.9 % intravenous solution] Route: IV; Rate: kc3 bolus; Site: left antecubital; 09:48 Drug: Metoclopramide 20 mg [metoclopramide 5 mg/mL injection solution] Route: IV; Rate: kc3 80 mg/hr; Infused Over: 15 mins; Site: left antecubital; 09:48 Drug: diphenhydrAMINE 50 mg [diphenhydramine 50 mg/mL injection solution (1 mL)] Route: kc3 IVP; Site: left antecubital; 10:07 Follow up: Response: Pain is decreased kc3 Signatures: Dispatcher [employer] EDMS Ingrid Peterson, Reg Reg gb Nicole Pereira, Reg Reg lg Ivelisse Quezada, RN RN Adonis Mackenzie PA PA btw Janay Lemus,RN RN kc3 The chart was reviewed and I authenticate all verbal orders and agree with the evaluation and treatment provided.Attachments: 09:10 [facility] Payment Agreement lg 15:15 T-Sheet-- Draft Copy gb Chart Complete MTDD
== END 2016-12-15 12:21 | disposition home or self-care (01) ==
LOC: M ED 08:40
DX: R10.12 Left upper quadrant pain (principal); Z87.891 Personal history of nicotine dependence; Z79.899 Other long term (current) drug therapy
CPT/HCPCS: 36415; 74177; 80048; 80076; 81001; 82150; 83690; 85025; 87086; 96374; 96375; 99284; J1200; J2765; Q9967

== ENCOUNTER → 2016-12-30 | Outpatient (CLI) | payer OTHER ==
--- NOTE | 2016-12-30 12:52 | REP ---
Clinical: Pain with recent fall. Technique: AP, lateral, bilateral oblique views left wrist . Findings: The carpal bones, surrounding osseous structures, soft tissues, and joint spaces are normal. There is no evidence for acute fracture or dislocation. No subcutaneous emphysema or radiodense foreign body. Impression: No acute fracture or dislocation Signed by Arnaud Delcid MD 12/30/2016 12:43 P
== END ==
LOC: M ADAMS 12:26
PROVIDERS: ATTEND Physician Assistant Medical
DX: S60.212A Contusion of left wrist, initial encounter (principal); Y92.9 Unspecified place or not applicable; Y93.9 Activity, unspecified; Y99.9 Unspecified external cause status; W19.XXXA Unspecified fall, initial encounter

== ENCOUNTER 2017-06-09 16:13 | Emergency (ER) | payer OTHER ==
[~2017-06-09] VITALS: Ht 160 cm; Wt 64.5 kg
[2017-06-09] MEDS ORDERED: ADVI200T PO (16:20)
[2017-06-09] MEDS ORDERED: SUMA100T2 (16:20)
[2017-06-09] MEDS ORDERED: LEVO175T2 (16:20)
[2017-06-09 19:39] LABS: BASO % 0.4 % (0.0-1.0); EOS # 0.1 K/mm3 (0.0-0.50); EOS % 0.7 % (0.0-3.0); LARGE UNSTAINED CELL # 0.1 K/mm3 (0.0-0.4); LARGE UNSTAINED CELL % 1.4 % (0.0-4.0); LYMPH # 2.2 K/mm3 (1.5-4.5); LYMPH % 24.9 % (24.0-44.0); MEAN CORPUSCULAR HEMOGLOBIN 30.2 pg (27.0-33.0); MEAN CORPUSCULAR HGB CONC 33.5 g/dl (32.0-36.5); MEAN CORPUSCULAR VOLUME 90.1 fl (80.0-96.0); MONO # 0.5 K/mm3 (0.0-0.8); MONO % 5.6 % (0.0-5.0); NEUTROPHILS # 5.5 K/mm3 (1.8-7.7); NEUTROPHILS % 67.1 % (36.0-66.0); PLATELET COUNT, AUTOMATED 343 k/mm3 (150-450); RED CELL DISTRIBUTION WIDTH 12.8 % (11.5-14.5); WHITE BLOOD COUNT 8.3 K/mm3 (4.0-10.0)
[2017-06-09 19:42] LABS: INR 1.07
[2017-06-09 19:43] LABS: CONTROL LINE HCG INT CTR LINE PRESENT
[2017-06-09 19:51] LABS: ALBUMIN 3.8 GM/DL (3.2-5.2); ALBUMIN/GLOBULIN RATIO 1.15 (1.00-1.93); ALKALINE PHOSPHATASE 70 U/L (45-117); ALT/SGPT 17 U/L (12-78); ANION GAP 5 MEQ/L (8-16); AST/SGOT 11 U/L (15-37); BILIRUBIN,DIRECT < 0.1 MG/DL (0.0-0.2); BILIRUBIN,TOTAL 0.3 MG/DL (0.2-1.0); BLOOD UREA NITROGEN 12 MG/DL (7-18); CALCIUM LEVEL 8.7 MG/DL (8.5-10.1); CARBON DIOXIDE LEVEL 29 MEQ/L (21-32); CHLORIDE LEVEL 104 MEQ/L (98-107); CREATININE FOR GFR 0.68 MG/DL (0.55-1.02); GLOMERULAR FILTRATION RATE > 60.0 (>58); GLUCOSE, FASTING 92 MG/DL (70-105); POTASSIUM SERUM 4.3 MEQ/L (3.5-5.1); SODIUM LEVEL 138 MEQ/L (136-145); TOTAL PROTEIN 7.1 GM/DL (6.4-8.2)
[2017-06-09 20:06] LABS: ERYTHROCYTE SEDIMENTATION RATE 5 mm/hr (0-20)
[2017-06-09 20:28] VITALS: BP 126/66
--- NOTE | 2017-06-09 20:30 | REPUSA ---
CLINICAL HISTORY: Pain. COMMENTS: Real time sonography with duplex doppler of the right lower extremity was performed with attention to the major deep venous structures. Evaluation reveals the right common femoral, superficial femoral and popliteal veins to be completely compressible without intraluminal thrombus. There is normal spontaneous phasic flow and augmentation . The greater saphenous/common femoral vein junction is patent. IMPRESSION: No evidence of DVT in right lower extremity. Thank you for your kind referral of this patient.
--- NOTE | 2017-06-09 21:37 | ECGEPIP ---
Stationary ECG Study [facility] Test Date: 2017-06-09 Pat Name: NEEMA PHELAN Department: Room: - Gender: F Sap Bw Consultant: : 1970 Requested By: Landon Erickson Order Number: [id number] Reading MD: Elías Ng Measurements Intervals [place] Rate: 72 P: 57 [place]: 138 QRS: 71 QRSD: 89 T: 27 QT: 388 QTc: 426 Interpretive Statements SINUS RHYTHM WITH SINUS ARRHYTHMIA Comparison tracing not on file Electronically Signed On 06-09-2017 21:37:39 EDT by Elías Ng
[2017-06-09] MEDS ORDERED: IBUP-1022 PO (22:04)
--- NOTE | 2017-06-10 08:37 | REP ---
REASON: Chest pain. COMPARISON: 09/07/2014 The pulmonary roseann are more full on today's exam. The heart is not enlarged and the pleural angles are sharp. The lung contreras are otherwise clear. The osseous structures are stable. IMPRESSION: There has been interim development of a subtle finding of increased fullness to the pulmonary roseann. Contrast enhanced CT examination of the chest is recommended. Signed by Otto Voss DO 06/10/2017 09:21 A
== END 2017-06-09 22:15 | disposition home or self-care (01) ==
LOC: M ED 16:13
DX: R07.9 Chest pain, unspecified (principal); Z87.891 Personal history of nicotine dependence

== ENCOUNTER → 2017-08-06 | Outpatient (REF) | payer OTHER ==
[~2017-08-06] MED LIST: ADVI200T PO; IBUP-1022 PO; LEVO175T2; SUMA100T2
[2017-08-06 14:36] LABS: BASO % 0.3 % (0.0-1.0); EOS # 0.1 10^3/uL (0.0-0.50); EOS % 1.7 % (0.0-3.0); LYMPH # 1.8 10^3/uL (1.5-4.5); LYMPH % 23.9 % (24.0-44.0); MEAN CORPUSCULAR HEMOGLOBIN 30.4 pg (27.0-33.0); MONO # 0.5 10^3/uL (0.0-0.8); MONO % 6.5 % (0.0-5.0); NEUTROPHILS # 5.1 10^3/uL (1.8-7.7); NEUTROPHILS % 67.5 % (36.0-66.0); RED CELL DISTRIBUTION WIDTH 12.9 % (11.5-14.5); WHITE BLOOD COUNT 7.6 10^3/uL (4.0-10.0)
[2017-08-06 15:11] LABS: ALBUMIN 3.8 GM/DL (3.2-5.2); ALBUMIN/GLOBULIN RATIO 1.27 (1.00-1.93); ALKALINE PHOSPHATASE 63 U/L (45-117); ALT/SGPT 20 U/L (12-78); ANION GAP 9 MEQ/L (8-16); AST/SGOT 11 U/L (15-37); BILIRUBIN,TOTAL 0.3 MG/DL (0.2-1.0); BLOOD UREA NITROGEN 11 MG/DL (7-18); CALCIUM LEVEL 8.5 MG/DL (8.5-10.1); CARBON DIOXIDE LEVEL 24 MEQ/L (21-32); CHLORIDE LEVEL 106 MEQ/L (98-107); CHOLESTEROL LEVEL 158 MG/DL (<200); CREATININE FOR GFR 0.62 MG/DL (0.55-1.02); GLOMERULAR FILTRATION RATE > 60.0 (>58); GLUCOSE, FASTING 84 MG/DL (70-105); POTASSIUM SERUM 4.7 MEQ/L (3.5-5.1); SODIUM LEVEL 139 MEQ/L (136-145); TOTAL PROTEIN 6.8 GM/DL (6.4-8.2); TRIGLYCERIDES LEVEL 153 MG/DL (<150)
== END ==
LOC: M LABDRWAD 12:25
PROVIDERS: ATTEND Nurse Practitioner Adult Health
DX: E03.9 Hypothyroidism, unspecified (principal); Z51.81 Encounter for therapeutic drug level monitoring; Z79.899 Other long term (current) drug therapy; E55.9 Vitamin D deficiency, unspecified; D64.9 Anemia, unspecified; E05.90 Thyrotoxicosis, unspecified without thyrotoxic crisis or storm

== ENCOUNTER → 2017-11-20 | Outpatient (REF) | payer OTHER ==
[2017-11-20 13:33] LABS: BASO % 0.2 % (0.0-1.0); EOS # 0.1 10^3/uL (0.0-0.50); EOS % 1.2 % (0.0-3.0); HEMATOCRIT 39.5 % (36.0-47.0); HEMOGLOBIN 13.3 g/dl (12.0-16.0); IMMATURE GRANULOCYTE % 0.2 % (0-0); LYMPH # 2.2 10^3/uL (1.5-4.5); LYMPH % 25.2 % (24.0-44.0); MEAN CORPUSCULAR HEMOGLOBIN 30.2 pg (27.0-33.0); MEAN CORPUSCULAR HGB CONC 33.7 g/dl (32.0-36.5); MEAN CORPUSCULAR VOLUME 89.6 fl (80.0-96.0); MONO # 0.6 10^3/uL (0.0-0.8); MONO % 7.2 % (0.0-5.0); NEUTROPHILS # 5.7 10^3/uL (1.8-7.7); PLATELET COUNT, AUTOMATED 419 10^3/uL (150-450); RED BLOOD COUNT 4.41 10^6/uL (4.00-5.40); RED CELL DISTRIBUTION WIDTH 12.5 % (11.5-14.5); WHITE BLOOD COUNT 8.6 10^3/uL (4.0-10.0)
[2017-11-20 13:48] LABS: CONTROL LINE MONO INT CTR LINE PRESENT; MONO SCRN NEGATIVE (NEGATIVE)
== END ==
LOC: M LABDRWAD 12:48
DX: Z20.828 Contact with and (suspected) exposure to other viral communicable diseases (principal)

== ENCOUNTER → 2017-12-07 | Outpatient (REF) | payer OTHER ==
[2017-12-07 20:28] LABS: FOLLICLE STIMULATING HORMONE 3.7 mIU/mL
[2017-12-07 20:29] LABS: CARCINOEMBRYONIC ANTIGEN 0.9 NG/ML (<2.5)
[2017-12-07 20:33] LABS: BASO % 0.4 % (0.0-1.0); EOS # 0.1 10^3/uL (0.0-0.50); EOS % 0.8 % (0.0-3.0); HEMATOCRIT 39.9 % (36.0-47.0); HEMOGLOBIN 13.2 g/dl (12.0-16.0); IMMATURE GRANULOCYTE % 0.2 % (0-0); LYMPH # 2.3 10^3/uL (1.5-4.5); LYMPH % 23.2 % (24.0-44.0); MEAN CORPUSCULAR HEMOGLOBIN 30.1 pg (27.0-33.0); MEAN CORPUSCULAR HGB CONC 33.1 g/dl (32.0-36.5); MEAN CORPUSCULAR VOLUME 90.9 fl (80.0-96.0); MONO # 0.6 10^3/uL (0.0-0.8); MONO % 6.2 % (0.0-5.0); NEUTROPHILS # 6.9 10^3/uL (1.8-7.7); NEUTROPHILS % 69.2 % (36.0-66.0); PLATELET COUNT, AUTOMATED 382 10^3/uL (150-450); RED BLOOD COUNT 4.39 10^6/uL (4.00-5.40); RED CELL DISTRIBUTION WIDTH 12.5 % (11.5-14.5)
[2017-12-11 00:07] LABS: ESTRONE SERUM 49 pg/mL (.)
[2017-12-11 00:07] LABS: ANTINUCLEAR ANTIBODIES DIRECT Negative (Negative)
== END ==
LOC: M LABDRWAD 19:06
DX: Z78.0 Asymptomatic menopausal state (principal); R59.1 Generalized enlarged lymph nodes

== ENCOUNTER → 2018-01-09 | Outpatient (REF) | payer OTHER | LOC: M LAB REF 19:30 | DX: N30.01 Acute cystitis with hematuria (principal) ==

== ENCOUNTER → 2018-01-28 | Outpatient (REF) | payer OTHER ==
[2018-01-28 13:27] LABS: BASO % 0.2 % (0.0-1.0); EOS # 0.1 10^3/uL (0.0-0.50); EOS % 0.5 % (0.0-3.0); HEMATOCRIT 43.7 % (36.0-47.0); HEMOGLOBIN 14.8 g/dl (12.0-16.0); IMMATURE GRANULOCYTE % 0.3 % (0-3.0); LYMPH # 3.3 10^3/uL (1.5-4.5); LYMPH % 35.5 % (24.0-44.0); MEAN CORPUSCULAR HEMOGLOBIN 29.9 pg (27.0-33.0); MEAN CORPUSCULAR HGB CONC 33.9 g/dl (32.0-36.5); MEAN CORPUSCULAR VOLUME 88.3 fl (80.0-96.0); MONO # 0.7 10^3/uL (0.0-0.8); MONO % 7.3 % (0.0-5.0); NEUTROPHILS # 5.1 10^3/uL (1.8-7.7); NEUTROPHILS % 56.2 % (36.0-66.0); PLATELET COUNT, AUTOMATED 362 10^3/uL (150-450); RED BLOOD COUNT 4.95 10^6/uL (4.00-5.40); RED CELL DISTRIBUTION WIDTH 11.9 % (11.5-14.5); WHITE BLOOD COUNT 9.2 10^3/uL (4.0-10.0)
[2018-01-28 13:32] LABS: ALBUMIN 4.1 GM/DL (3.2-5.2); ALBUMIN/GLOBULIN RATIO 1.28 (1.00-1.93); ALKALINE PHOSPHATASE 79 U/L (45-117); ALT/SGPT 41 U/L (12-78); ANION GAP 10 MEQ/L (8-16); AST/SGOT 12 U/L (7-37); BILIRUBIN,TOTAL 0.3 MG/DL (0.2-1.0); BLOOD UREA NITROGEN 11 MG/DL (7-18); CALCIUM LEVEL 8.5 MG/DL (8.5-10.1); CARBON DIOXIDE LEVEL 27 MEQ/L (21-32); CHLORIDE LEVEL 103 MEQ/L (98-107); CHOLESTEROL LEVEL 156 MG/DL (<200); CREATININE FOR GFR 0.64 MG/DL (0.55-1.30); FREE T4 1.79 NG/DL (0.76-1.46); GLOMERULAR FILTRATION RATE > 60.0 (>58); GLUCOSE, FASTING 84 MG/DL (70-100); HDL CHOLESTEROL 48 MG/DL (>40); LDL CHOLESTEROL 79.8 MG/DL (<100); NON-HDL-C 108 MG/DL; POTASSIUM SERUM 4.1 MEQ/L (3.5-5.1); SODIUM LEVEL 140 MEQ/L (136-145); THYROID STIMULATING HORMONE 0.006 uIU/ML (0.358-3.740); TOTAL PROTEIN 7.3 GM/DL (6.4-8.2); TRIGLYCERIDES LEVEL 141 MG/DL (<150)
[2018-01-28 13:37] LABS: ESTIMATED AVERAGE GLUCOSE 108 MG/DL (60-110); HEMOGLOBIN A1c 5.4 %
[2018-01-28 13:38] LABS: TOTAL 25(OH) VITAMIN D 27.5 NG/ML (30.0-100.0)
== END ==
LOC: M LABDRWAD 12:31
DX: E03.9 Hypothyroidism, unspecified (principal); Z79.899 Other long term (current) drug therapy; D64.9 Anemia, unspecified; E55.9 Vitamin D deficiency, unspecified
CPT/HCPCS: 84443

== ENCOUNTER → 2018-01-31 | Outpatient (CLI) | payer OTHER ==
[~2018-01-31] MED LIST changes: -ADVI200T PO; -IBUP-1022 PO; +ISOVUE-370 76% 100ML VIAL (Q9967) As Ordered; -LEVO175T2; -SUMA100T2
== END ==
LOC: M RAD 16:05
DX: R91.8 Other nonspecific abnormal finding of lung field (principal)
CPT/HCPCS: Q9967

== ENCOUNTER → 2018-03-18 | Outpatient (CLI) | payer OTHER | LOC: M RAD 11:32 | DX: R91.8 Other nonspecific abnormal finding of lung field (principal) | CPT/HCPCS: 71046 ==

== ENCOUNTER → 2018-04-03 | Outpatient (CLI) | payer OTHER | LOC: M RAD 14:30 | DX: R91.8 Other nonspecific abnormal finding of lung field (principal) | CPT/HCPCS: 71250 ==

== ENCOUNTER → 2018-05-16 | Outpatient (REF) | payer OTHER ==
[2018-05-16 12:57] LABS: BASO % 0.4 % (0.0-1.0); EOS # 0.1 10^3/uL (0.0-0.50); EOS % 1.3 % (0.0-3.0); HEMATOCRIT 41.2 % (36.0-47.0); HEMOGLOBIN 13.8 g/dl (12.0-15.5); IMMATURE GRANULOCYTE % 0.4 % (0-3.0); LYMPH % 24.6 % (24.0-44.0); MEAN CORPUSCULAR HEMOGLOBIN 30.6 pg (27.0-33.0); MEAN CORPUSCULAR HGB CONC 33.5 g/dl (32.0-36.5); MEAN CORPUSCULAR VOLUME 91.4 fl (80.0-96.0); MONO # 0.5 10^3/uL (0.0-0.8); MONO % 5.7 % (0.0-5.0); NEUTROPHILS # 5.5 10^3/uL (1.8-7.7); NEUTROPHILS % 67.6 % (36.0-66.0); PLATELET COUNT, AUTOMATED 354 10^3/uL (150-450); RED BLOOD COUNT 4.51 10^6/uL (4.00-5.40); RED CELL DISTRIBUTION WIDTH 12.8 % (11.5-14.5); WHITE BLOOD COUNT 8.2 10^3/uL (4.0-10.0)
[2018-05-16 13:12] LABS: ESTIMATED AVERAGE GLUCOSE 108 MG/DL (60-110); HEMOGLOBIN A1c 5.4 %
[2018-05-16 13:18] LABS: ALBUMIN 3.9 GM/DL (3.2-5.2); ALKALINE PHOSPHATASE 68 U/L (45-117); ALT/SGPT 19 U/L (12-78); ANION GAP 6 MEQ/L (8-16); AST/SGOT 10 U/L (7-37); BILIRUBIN,TOTAL 0.5 MG/DL (0.2-1.0); BLOOD UREA NITROGEN 16 MG/DL (7-18); CALCIUM LEVEL 8.4 MG/DL (8.5-10.1); CARBON DIOXIDE LEVEL 27 MEQ/L (21-32); CHLORIDE LEVEL 106 MEQ/L (98-107); CHOLESTEROL LEVEL 185 MG/DL (<200); CHOLESTEROL RISK RATIO 3.557 (<5); CREATININE FOR GFR 0.76 MG/DL (0.55-1.30); FREE T4 1.29 NG/DL (0.76-1.46); GLOMERULAR FILTRATION RATE > 60.0 (>58); GLUCOSE, FASTING 86 MG/DL (70-100); HDL CHOLESTEROL 52 MG/DL (>40); LDL CHOLESTEROL 110.4 MG/DL (<100); NON-HDL-C 133 MG/DL; POTASSIUM SERUM 4.4 MEQ/L (3.5-5.1); SODIUM LEVEL 139 MEQ/L (136-145); THYROID STIMULATING HORMONE 0.021 uIU/ML (0.358-3.740); TOTAL PROTEIN 6.9 GM/DL (6.4-8.2); TRIGLYCERIDES LEVEL 113 MG/DL (<150)
[2018-05-16 13:19] LABS: TOTAL 25(OH) VITAMIN D 21.4 NG/ML (30.0-100.0)
== END ==
LOC: M LABDRWAD 12:22
DX: E03.9 Hypothyroidism, unspecified (principal); Z79.899 Other long term (current) drug therapy; E55.9 Vitamin D deficiency, unspecified

== ENCOUNTER 2018-07-09 11:06 | Emergency (ER) | payer OTHER ==
[2018-07-09 12:46] LABS: BASO % 0.2 % (0.0-1.0); EOS # 0.1 10^3/uL (0.0-0.50); EOS % 0.7 % (0.0-3.0); HEMOGLOBIN 13.7 g/dl (12.0-15.5); IMMATURE GRANULOCYTE % 0.3 % (0-3.0); LYMPH # 2.1 10^3/uL (1.5-4.5); LYMPH % 21.4 % (24.0-44.0); MEAN CORPUSCULAR HEMOGLOBIN 30.4 pg (27.0-33.0); MEAN CORPUSCULAR HGB CONC 33.4 g/dl (32.0-36.5); MEAN CORPUSCULAR VOLUME 90.9 fl (80.0-96.0); MONO # 0.5 10^3/uL (0.0-0.8); MONO % 5.4 % (0.0-5.0); NEUTROPHILS # 6.9 10^3/uL (1.8-7.7); PLATELET COUNT, AUTOMATED 392 10^3/uL (150-450); RED BLOOD COUNT 4.51 10^6/uL (4.00-5.40); RED CELL DISTRIBUTION WIDTH 12.6 % (11.5-14.5); WHITE BLOOD COUNT 9.6 10^3/uL (4.0-10.0)
[2018-07-09 12:53] LABS: KETONE, URINE AUTO RFX NEGATIVE (NEGATIVE); MUCUS, URINE RFX SMALL (NEGATIVE); NITRITE, URINE AUTO RFX NEGATIVE (NEGATIVE); RBC, URINE AUTO RFX TNTC /HPF (0-3); SPECIFIC GRAVITY UR AUTO RFX 1.006 (1.002-1.035); SQUAM EPITHELIAL CELL UR AURFX 2 /HPF (0-6)
[2018-07-09 13:03] LABS: ANION GAP 9 MEQ/L (8-16); BLOOD UREA NITROGEN 8 MG/DL (7-18); CALCIUM LEVEL 8.7 MG/DL (8.5-10.1); CARBON DIOXIDE LEVEL 26 MEQ/L (21-32); CHLORIDE LEVEL 107 MEQ/L (98-107); CREATININE FOR GFR 0.69 MG/DL (0.55-1.30); GLOMERULAR FILTRATION RATE > 60.0 (>58); GLUCOSE, FASTING 95 MG/DL (70-100); LEUKOCYTE ESTERASE UR AUTO RFX TRACE (NEGATIVE); POTASSIUM SERUM 4.3 MEQ/L (3.5-5.1); SODIUM LEVEL 142 MEQ/L (136-145); WBC, URINE AUTO RFX 42 /HPF (0-3)
[2018-07-09 13:06] LABS: LACTIC ACID SEPSIS PROTOCOL 1.1 MMOL/L (0.4-2.0)
[2018-07-09 14:23] LABS: CHLAMYDIA DNA AMPLIFICATION NEGATIVE (NEGATIVE); GC DNA AMPLIFICATION NEGATIVE (NEGATIVE)
== END 2018-07-09 14:19 | disposition home or self-care (01) ==
LOC: M ED 11:06
DX: N93.8 Other specified abnormal uterine and vaginal bleeding (principal); N30.90 Cystitis, unspecified without hematuria; D25.1 Intramural leiomyoma of uterus; N83.202 Unspecified ovarian cyst, left side; E03.9 Hypothyroidism, unspecified; Z79.899 Other long term (current) drug therapy; Z79.890 Hormone replacement therapy; Z91.013 Allergy to seafood; Z87.891 Personal history of nicotine dependence
CPT/HCPCS: 76856

== ENCOUNTER → 2018-07-31 | Outpatient (REF) | payer OTHER | LOC: M LAB REF 09:47 | DX: N92.0 Excessive and frequent menstruation with regular cycle (principal) | CPT/HCPCS: 88142 ==

== ENCOUNTER → 2018-08-15 | Outpatient (REF) | payer OTHER ==
[2018-08-15 12:42] LABS: BASO % 0.2 % (0.0-1.0); EOS # 0.1 10^3/uL (0.0-0.50); EOS % 1.4 % (0.0-3.0); HEMATOCRIT 40.9 % (36.0-47.0); IMMATURE GRANULOCYTE % 0.3 % (0-3.0); LYMPH % 20.9 % (24.0-44.0); MEAN CORPUSCULAR HEMOGLOBIN 30.4 pg (27.0-33.0); MEAN CORPUSCULAR HGB CONC 34.2 g/dl (32.0-36.5); MEAN CORPUSCULAR VOLUME 88.7 fl (80.0-96.0); MONO # 0.7 10^3/uL (0.0-0.8); MONO % 7.1 % (0.0-5.0); NEUTROPHILS # 6.6 10^3/uL (1.8-7.7); NEUTROPHILS % 70.1 % (36.0-66.0); PLATELET COUNT, AUTOMATED 361 10^3/uL (150-450); RED BLOOD COUNT 4.61 10^6/uL (4.00-5.40); RED CELL DISTRIBUTION WIDTH 12.4 % (11.5-14.5); WHITE BLOOD COUNT 9.4 10^3/uL (4.0-10.0)
[2018-08-15 13:10] LABS: ALBUMIN 3.9 GM/DL (3.2-5.2); ALKALINE PHOSPHATASE 69 U/L (45-117); ALT/SGPT 16 U/L (12-78); ANION GAP 8 MEQ/L (8-16); AST/SGOT 13 U/L (7-37); BILIRUBIN,TOTAL 0.3 MG/DL (0.2-1.0); BLOOD UREA NITROGEN 9 MG/DL (7-18); CALCIUM LEVEL 8.4 MG/DL (8.5-10.1); CARBON DIOXIDE LEVEL 25 MEQ/L (21-32); CHLORIDE LEVEL 108 MEQ/L (98-107); CHOLESTEROL LEVEL 170 MG/DL (<200); CHOLESTEROL RISK RATIO 3.469 (<5); CREATININE FOR GFR 0.66 MG/DL (0.55-1.30); ESTIMATED AVERAGE GLUCOSE 105 MG/DL (60-110); FREE T4 1.71 NG/DL (0.76-1.46); GLOMERULAR FILTRATION RATE > 60.0 (>58); GLUCOSE, FASTING 81 MG/DL (70-100); HDL CHOLESTEROL 49 MG/DL (>40); HEMOGLOBIN A1c 5.3 %; LDL CHOLESTEROL 98 MG/DL (<100); NON-HDL-C 121 MG/DL; POTASSIUM SERUM 4.6 MEQ/L (3.5-5.1); SODIUM LEVEL 141 MEQ/L (136-145); THYROID STIMULATING HORMONE 0.009 uIU/ML (0.358-3.740); TOTAL PROTEIN 6.9 GM/DL (6.4-8.2); TRIGLYCERIDES LEVEL 117 MG/DL (<150)
== END ==
LOC: M LABDRWAD 12:20
DX: Z79.899 Other long term (current) drug therapy (principal)

== ENCOUNTER → 2018-10-10 | Outpatient (CLI) | payer OTHER ==
[~2018-10-10] MED LIST changes: -ISOVUE-370 76% 100ML VIAL (Q9967) As Ordered; +METHACHOLINE KIT (J7674) INH
== END ==
LOC: M CARPUL 08:45
DX: R06.00 Dyspnea, unspecified (principal); R05 Cough
CPT/HCPCS: J7674

== ENCOUNTER → 2018-10-10 | Outpatient (CLI) | payer OTHER | LOC: M RAD 09:00 | DX: R91.8 Other nonspecific abnormal finding of lung field (principal) | CPT/HCPCS: 71250 ==

== ENCOUNTER → 2018-10-28 | Outpatient (REF) | payer OTHER ==
[~2018-10-28] MED LIST changes: +ADVI200T PO; +IBUP-1022 PO; +LEVO175T2; +MACR100C43 PO; -METHACHOLINE KIT (J7674) INH; +PYRI1TAB5 PO; +SUMA100T2
[2018-10-28 13:20] LABS: INR 0.97
[2018-10-28 13:21] LABS: PARTIAL THROMBOPLASTIN TIME 32.1 SECONDS (25.4-37.6)
== END ==
LOC: M LAB REF 13:01
PROVIDERS: ATTEND Internal Medicine Pulmonary Disease
DX: Z01.812 Encounter for preprocedural laboratory examination (principal); R91.8 Other nonspecific abnormal finding of lung field

== ENCOUNTER → 2018-10-30 | Outpatient (REF) | payer OTHER ==
[~2018-10-30] MED LIST changes: -LEVO175T2; +LEVO175T2 PO; +PROAAER10 INH; -SUMA100T2; +SUMA100T2 PO; +SYMB16INH INH; +[UNRECOGNIZED DRUG - CODE] SC
== END ==
LOC: M LAB REF 16:13
PROVIDERS: ATTEND Internal Medicine Pulmonary Disease
DX: Z01.812 Encounter for preprocedural laboratory examination (principal); R91.8 Other nonspecific abnormal finding of lung field

== ENCOUNTER → 2018-11-19 | Outpatient (CLI) | payer OTHER ==
--- NOTE | 2018-11-20 03:30 | REP ---
Clinical: Postoperative assessment . Comparison: 11/15/2018 . Technique: PA and lateral. Findings: Moderate right pneumothorax unchanged from prior examination. Lateral view demonstrates associated small posterobasilar pleural reaction. Aerated lung contreras are clear. Mediastinum appears normal. Skeletal structures are intact. Impression: Continued right apical pneumothorax. Electronically Signed by Arnaud Delcid MD 11/20/2018 03:21 A
== END ==
LOC: M SMT 08:44
PROVIDERS: ATTEND Thoracic Surgery (Cardiothoracic Vascular Surgery)
DX: J95.811 Postprocedural pneumothorax (principal)

== ENCOUNTER → 2018-11-25 | Outpatient (CLI) | payer OTHER ==
--- NOTE | 2018-11-25 08:50 | REP ---
Chest x-ray: Two views. History: Abnormal lung field findings. Comparison study November 19, 2018. Findings: The previously noted small right-sided pneumothorax is again seen but has decreased further since the prior study measuring only 5 mm in thickness at the apex. There is no hydrothorax. A nodular opacity is superimposed on the anterior end of the 4th rib on the right. This is unchanged. There is a cavitary nodule in the right base which is a little larger. Also unchanged. This was a recent biopsy target. Impression: Tiny residual right-sided pneumothorax. Nodular opacities again noted on the right unchanged. Electronically Signed by Prem Grey MD 11/25/2018 10:19 A
[2018-11-25 13:52] LABS: BASO % 0.2 % (0.0-1.0); EOS # 0.1 10^3/uL (0.0-0.50); EOS % 1.1 % (0.0-3.0); HEMATOCRIT 42.3 % (36.0-47.0); HEMOGLOBIN 13.9 g/dl (12.0-15.5); LYMPH # 2.1 10^3/uL (1.5-4.5); LYMPH % 17.9 % (24.0-44.0); MEAN CORPUSCULAR HEMOGLOBIN 30.2 pg (27.0-33.0); MEAN CORPUSCULAR HGB CONC 32.9 g/dl (32.0-36.5); MONO # 0.7 10^3/uL (0.0-0.8); MONO % 6.4 % (0.0-5.0); NEUTROPHILS # 8.6 10^3/uL (1.8-7.7); NEUTROPHILS % 74.1 % (36.0-66.0); PLATELET COUNT, AUTOMATED 400 10^3/uL (150-450); WHITE BLOOD COUNT 11.5 10^3/uL (4.0-10.0)
[2018-11-25 13:54] LABS: ALBUMIN 4.1 GM/DL (3.2-5.2); ALT/SGPT 17 U/L (12-78); BILIRUBIN,TOTAL 0.3 MG/DL (0.2-1.0); BLOOD UREA NITROGEN 12 MG/DL (7-18); CALCIUM LEVEL 8.7 MG/DL (8.5-10.1); CARBON DIOXIDE LEVEL 27 MEQ/L (21-32); CHLORIDE LEVEL 103 MEQ/L (98-107); CHOLESTEROL LEVEL 192 MG/DL (<200); CHOLESTEROL RISK RATIO 3.622 (<5); CREATININE FOR GFR 0.67 MG/DL (0.55-1.30); FREE T4 1.33 NG/DL (0.76-1.46); GLOMERULAR FILTRATION RATE > 60.0 (>58); GLUCOSE, FASTING 87 MG/DL (70-100); HDL CHOLESTEROL 53 MG/DL (>40); LDL CHOLESTEROL 111 MG/DL (<100); NON-HDL-C 139 MG/DL; POTASSIUM SERUM 4.2 MEQ/L (3.5-5.1); SODIUM LEVEL 139 MEQ/L (136-145); TOTAL PROTEIN 7.1 GM/DL (6.4-8.2); TRIGLYCERIDES LEVEL 141 MG/DL (<150)
[2018-11-25 14:26] LABS: HEMOGLOBIN A1c 5.2 %
== END ==
LOC: M ADAMS 07:45
PROVIDERS: ATTEND Internal Medicine Pulmonary Disease
DX: R91.8 Other nonspecific abnormal finding of lung field (principal); J95.811 Postprocedural pneumothorax; Z79.899 Other long term (current) drug therapy

== ENCOUNTER → 2018-12-05 | Outpatient (CLI) | payer OTHER ==
--- NOTE | 2018-12-05 20:38 | REP ---
Clinical: Preoperative assessment . Comparison: 11/25/2018 . Technique: PA and lateral. Findings: The mediastinum and cardiac silhouette are normal. The lung contreras demonstrated a vague area of opacity in the right lower lung zone which may represent pleural plaque and appears relatively similar to prior examination. No further acute consolidation, effusion, or pneumothorax. The skeletal structures are intact and normal. Impression: 1. Ill-defined area of density in the right lower lobe may represent pleural plaque. No further acute mediastinal or pleuroparenchymal process appreciated. Electronically Signed by Arnaud Delcid MD 12/05/2018 08:30 P
== END ==
LOC: M ADAMS 09:48
PROVIDERS: ATTEND Ophthalmology
DX: J95.811 Postprocedural pneumothorax (principal)

== ENCOUNTER → 2018-12-16 | Outpatient (CLI) | payer OTHER ==
--- NOTE | 2018-12-17 02:35 | REP ---
Clinical: Post procedure evaluation for pneumothorax . Comparison: 12/05/2018 . Technique: PA and lateral. Findings: The mediastinum and cardiac silhouette are normal. Nodular opacity in the right lower lung zone again identified. No pneumothorax. No effusion. No further acute consolidation. The skeletal structures are intact and normal. Impression: 1. No acute cardiopulmonary process. No pneumothorax. 2. Multinodular opacity in the right lower lobe again noted. Electronically Signed by Arnaud Delcid MD 12/17/2018 02:26 A
== END ==
LOC: M SMT 10:03
PROVIDERS: ATTEND Thoracic Surgery (Cardiothoracic Vascular Surgery)
DX: J95.811 Postprocedural pneumothorax (principal)

== ENCOUNTER → 2019-01-25 | Outpatient (REF) | payer OTHER | LOC: M LAB REF 12:44 | PROVIDERS: ATTEND Physician Assistant Medical | DX: N39.0 Urinary tract infection, site not specified (principal) ==

== ENCOUNTER → 2019-02-05 | Outpatient (REF) | payer OTHER | LOC: M LAB REF 12:15 | PROVIDERS: ATTEND Nurse Practitioner Adult Health | DX: N39.0 Urinary tract infection, site not specified (principal) ==

== ENCOUNTER → 2019-02-06 | Outpatient (CLI) | payer OTHER ==
--- NOTE | 2019-02-06 12:06 | REP ---
Chest two views HISTORY: Pneumothorax Comparison: 12/16/2018 A small ill-defined parenchymal density is again noted in the right lower lobe unchanged compared to the previous study. The left lung is clear. There is no pneumothorax. The heart is normal in size. The pulmonary vasculature is normal in appearance. The bony structure is intact. IMPRESSION: No acute disease. Electronically Signed by Hitesh Ontiveros MD 02/06/2019 11:57 A
== END ==
LOC: M SMT 09:39
PROVIDERS: ATTEND Thoracic Surgery (Cardiothoracic Vascular Surgery)
DX: J95.811 Postprocedural pneumothorax (principal)

== ENCOUNTER → 2019-02-06 | Outpatient (CLI) | payer OTHER | LOC: M SMT 09:29 | PROVIDERS: ATTEND Thoracic Surgery (Cardiothoracic Vascular Surgery) | DX: Z53.9 Procedure and treatment not carried out, unspecified reason (principal) ==

== ENCOUNTER → 2019-02-28 | Outpatient (REF) | payer OTHER ==
[2019-02-28 13:26] LABS: BASO % 0.4 % (0.0-1.0); EOS # 0.2 10^3/uL (0.0-0.50); EOS % 2.3 % (0.0-3.0); HEMATOCRIT 40.5 % (36.0-47.0); HEMOGLOBIN 13.4 g/dl (12.0-15.5); LYMPH # 2.2 10^3/uL (1.5-4.5); LYMPH % 27.3 % (24.0-44.0); MEAN CORPUSCULAR HEMOGLOBIN 30.2 pg (27.0-33.0); MEAN CORPUSCULAR HGB CONC 33.1 g/dl (32.0-36.5); MEAN CORPUSCULAR VOLUME 91.4 fl (80.0-96.0); MONO # 0.5 10^3/uL (0.0-0.8); MONO % 5.9 % (0.0-5.0); NEUTROPHILS # 5.2 10^3/uL (1.8-7.7); PLATELET COUNT, AUTOMATED 406 10^3/uL (150-450); RED BLOOD COUNT 4.43 10^6/uL (4.00-5.40); WHITE BLOOD COUNT 8.1 10^3/uL (4.0-10.0)
[2019-02-28 14:21] LABS: ALBUMIN 3.9 GM/DL (3.2-5.2); ALT/SGPT 18 U/L (12-78); BILIRUBIN,TOTAL 0.3 MG/DL (0.2-1.0); BLOOD UREA NITROGEN 13 MG/DL (7-18); CALCIUM LEVEL 8.6 MG/DL (8.5-10.1); CARBON DIOXIDE LEVEL 27 MEQ/L (21-32); CHLORIDE LEVEL 108 MEQ/L (98-107); CHOLESTEROL LEVEL 191 MG/DL (<200); CHOLESTEROL RISK RATIO 3.603 (<5); CREATININE FOR GFR 0.72 MG/DL (0.55-1.30); FREE T4 1.42 NG/DL (0.76-1.46); GLOMERULAR FILTRATION RATE > 60.0 (>58); GLUCOSE, FASTING 91 MG/DL (70-100); HDL CHOLESTEROL 53 MG/DL (>40); LDL CHOLESTEROL 118 MG/DL (<100); NON-HDL-C 138 MG/DL; POTASSIUM SERUM 4.3 MEQ/L (3.5-5.1); SODIUM LEVEL 140 MEQ/L (136-145); THYROID STIMULATING HORMONE 0.032 uIU/ML (0.358-3.740); TOTAL PROTEIN 6.5 GM/DL (6.4-8.2); TRIGLYCERIDES LEVEL 101 MG/DL (<150)
[2019-02-28 15:17] LABS: HEMOGLOBIN A1c 5.5 %
== END ==
LOC: M LABDRWAD 12:30
PROVIDERS: ATTEND Nurse Practitioner Adult Health
DX: E03.9 Hypothyroidism, unspecified (principal); G43.909 Migraine, unspecified, not intractable, without status migrainosus; Z79.899 Other long term (current) drug therapy

== ENCOUNTER → 2019-05-30 | Outpatient (REF) | payer OTHER | LOC: M LABDRWAD 12:13 | PROVIDERS: ATTEND Thoracic Surgery (Cardiothoracic Vascular Surgery) | DX: R91.8 Other nonspecific abnormal finding of lung field (principal) ==

== ENCOUNTER → 2019-05-30 | Outpatient (REF) | payer OTHER ==
[2019-05-30 13:21] LABS: BASO % 0.4 % (0.0-1.0); EOS # 0.2 10^3/uL (0.0-0.50); EOS % 2.1 % (0.0-3.0); HEMATOCRIT 41.6 % (36.0-47.0); HEMOGLOBIN 13.8 g/dl (12.0-15.5); LYMPH # 2.1 10^3/uL (1.5-4.5); LYMPH % 26.2 % (24.0-44.0); MEAN CORPUSCULAR HEMOGLOBIN 30.8 pg (27.0-33.0); MEAN CORPUSCULAR HGB CONC 33.2 g/dl (32.0-36.5); MEAN CORPUSCULAR VOLUME 92.9 fl (80.0-96.0); MONO # 0.6 10^3/uL (0.0-0.8); MONO % 6.9 % (0.0-5.0); NEUTROPHILS # 5.1 10^3/uL (1.8-7.7); PLATELET COUNT, AUTOMATED 350 10^3/uL (150-450); RED BLOOD COUNT 4.48 10^6/uL (4.00-5.40)
[2019-05-30 14:41] LABS: ALBUMIN 3.9 GM/DL (3.2-5.2); ALT/SGPT 19 U/L (12-78); BILIRUBIN,TOTAL 0.3 MG/DL (0.2-1.0); BLOOD UREA NITROGEN 11 MG/DL (7-18); CALCIUM LEVEL 8.6 MG/DL (8.5-10.1); CARBON DIOXIDE LEVEL 24 MEQ/L (21-32); CHLORIDE LEVEL 108 MEQ/L (98-107); CHOLESTEROL LEVEL 188 MG/DL (<200); CHOLESTEROL RISK RATIO 3.357 (<5); CREATININE FOR GFR 0.77 MG/DL (0.55-1.30); FREE T4 1.42 NG/DL (0.76-1.46); GLOMERULAR FILTRATION RATE > 60.0 (>58); GLUCOSE, FASTING 78 MG/DL (70-100); HDL CHOLESTEROL 56 MG/DL (>40); LDL CHOLESTEROL 115 MG/DL (<100); NON-HDL-C 132 MG/DL; POTASSIUM SERUM 4.5 MEQ/L (3.5-5.1); SODIUM LEVEL 139 MEQ/L (136-145); THYROID STIMULATING HORMONE 0.037 uIU/ML (0.358-3.740); TOTAL PROTEIN 6.9 GM/DL (6.4-8.2); TRIGLYCERIDES LEVEL 86 MG/DL (<150)
== END ==
LOC: M LABDRWAD 12:15
PROVIDERS: ATTEND Nurse Practitioner Adult Health
DX: E03.9 Hypothyroidism, unspecified (principal); Z79.899 Other long term (current) drug therapy

== ENCOUNTER → 2019-06-12 | Outpatient (CLI) | payer OTHER ==
--- NOTE | 2019-06-12 15:04 | REP ---
Paranasal sinus series four views: The frontal, ethmoid, maxillary and sphenoid sinuses are clear. The skull base and sella turcica are unremarkable. Impression: Negative plain film study of the paranasal sinuses. If symptoms persist or worsen, consider maxillofacial CT. Electronically Signed by Zac Landa MD 06/12/2019 02:55 P
== END ==
LOC: M ADAMS 11:28
PROVIDERS: ATTEND Physician Assistant Medical
DX: J32.8 Other chronic sinusitis (principal)

== ENCOUNTER 2019-08-04 11:08 | Emergency (ER) | payer OTHER ==
[~2019-08-04] VITALS: Ht 160 cm; Wt 65.4 kg
[2019-08-04 12:05] LABS: BASO % 0.3 % (0.0-1.0); EOS # 0.1 10^3/uL (0.0-0.5); EOS % 0.5 % (0.0-3.0); HEMATOCRIT 41.2 % (36.0-47.0); LYMPH # 1.9 10^3/uL (1.5-5.0); LYMPH % 18.8 % (24.0-44.0); MEAN CORPUSCULAR HEMOGLOBIN 30.5 pg (27.0-33.0); MEAN CORPUSCULAR VOLUME 89.8 fl (80.0-96.0); MONO # 0.6 10^3/uL (0.0-0.8); MONO % 5.6 % (0.0-5.0); NEUTROPHILS # 7.6 10^3/uL (1.5-8.5); NEUTROPHILS % 74.5 % (36.0-66.0); PLATELET COUNT, AUTOMATED 373 10^3/uL (150-450); RED BLOOD COUNT 4.59 10^6/uL (4.00-5.40); WHITE BLOOD COUNT 10.2 10^3/uL (4.0-10.0)
[2019-08-04 12:32] LABS: BLOOD UREA NITROGEN 8 MG/DL (7-18); CARBON DIOXIDE LEVEL 28 MEQ/L (21-32); CHLORIDE LEVEL 107 MEQ/L (98-107); GLOMERULAR FILTRATION RATE > 60.0 (>58); GLUCOSE, FASTING 96 MG/DL (70-100); POTASSIUM SERUM 4.3 MEQ/L (3.5-5.1); SODIUM LEVEL 140 MEQ/L (136-145)
[2019-08-04 12:33] LABS: ALT/SGPT 19 U/L (12-78); BILIRUBIN,DIRECT < 0.1 MG/DL (0.0-0.2); BILIRUBIN,TOTAL 0.3 MG/DL (0.2-1.0); LIPASE 180 U/L (73-393)
[2019-08-04] MEDS ORDERED: NS 1,000 ML IV ONE (14:45)
[2019-08-04] MEDS ORDERED: MORPHINE 4 MG/ML 1ML VIAL/SYRINGE (J2270) IV ONE (14:45)
[2019-08-04] MEDS ORDERED: ONDANSETRON 4MG/2ML VIAL (J2405) IV ONE (14:45)
[2019-08-04] MEDS ORDERED: KETOROLAC 30 MG/ML VIAL (J1885) IV ONE (15:00)
[2019-08-04 15:03] LABS: HCG, SERUM QUALITATIVE NEGATIVE (NEGATIVE)
--- NOTE | 2019-08-04 17:08 | REP ---
PELVIC ULTRASOUND: Real-time sonographic evaluation of the pelvis was performed utilizing transabdominal and endovaginal technique. The bladder measures 6.3 x 8.5 x 3.8 cm. The uterus measures 8.8 x 4.2 x 4.5 cm. Endometrial thickness is 5 mm. There appear to be uterine fibroids present, the largest three measure 2.0 x 1.3 x 1.5 cm. Anteriorly on the left, 1.9 x 1.1 x 1.2 cm posteriorly on the left and 1.3 x 1.0 x 1.3 cm posteriorly on the left. There is a Nabothian cyst in the cervix 1.7 cm. Simple cyst or dominant follicle right ovary measures 2.5 x 1.7 x 2.0 cm. There is no other evidence of adnexal mass or free fluid. There is no torsion of either ovary with duplex Doppler evaluation. IMPRESSION: Uterine fibroids. Dominant follicle versus small cyst right ovary 2.5 cm maximally. No torsion or free fluid. Electronically Signed by Zac Lundberg MD 08/05/2019 10:02 A
[2019-08-04] MEDS ORDERED: OMEP-218 PO (17:38)
[2019-08-04] MEDS ORDERED: KETO10TAB PO (17:38)
[2019-08-04] MEDS ORDERED: ZOFR4TAB16 PO (17:38)
[2019-08-04] MEDS ORDERED: GI COCKTAIL 50ML BTL(HYOSCYAMINE/MAALOX/LIDOCAINE VISCOUS)(1:3:1) PO ONE (17:45)
[2019-08-04 17:47] VITALS: BP 138/82
== END 2019-08-04 17:58 | disposition home or self-care (01) ==
LOC: M ED 11:08
DX: N83.201 Unspecified ovarian cyst, right side (principal); D25.9 Leiomyoma of uterus, unspecified; R10.13 Epigastric pain; R31.9 Hematuria, unspecified; E03.9 Hypothyroidism, unspecified; J44.9 Chronic obstructive pulmonary disease, unspecified; K52.9 Noninfective gastroenteritis and colitis, unspecified; Z79.51 Long term (current) use of inhaled steroids; Z79.899 Other long term (current) drug therapy; Z91.013 Allergy to seafood
CPT/HCPCS: 36415; 76830; 76856; 80048; 80076; 81001; 83690; 84703; 85025; 87210; 93976; 96374; 96375; 99284; J1885; J2405

== ENCOUNTER → 2019-08-18 | Outpatient (REF) | payer OTHER ==
[~2019-08-18] MED LIST changes: +CIPR-249 PO; +IBUP80TA PO; +KETO10TAB PO; +OMEP-218 PO; +OXYC1TAB23 PO; +ZOFR4TAB16 PO
== END ==
LOC: M LAB REF 15:43
PROVIDERS: ATTEND Physician Assistant
DX: N39.0 Urinary tract infection, site not specified (principal)

== ENCOUNTER → 2019-08-28 | Outpatient (REF) | payer OTHER ==
[~2019-08-28] MED LIST changes: -CIPR-249 PO; -IBUP80TA PO; -OXYC1TAB23 PO
[2019-08-28 12:01] LABS: HEMATOCRIT 41.9 % (36.0-47.0); HEMOGLOBIN 13.8 g/dl (12.0-15.5); MEAN CORPUSCULAR HEMOGLOBIN 30.9 pg (27.0-33.0); MEAN CORPUSCULAR HGB CONC 32.9 g/dl (32.0-36.5); MEAN CORPUSCULAR VOLUME 93.9 fl (80.0-96.0); PLATELET COUNT, AUTOMATED 393 10^3/uL (150-450); RED BLOOD COUNT 4.46 10^6/uL (4.00-5.40); WHITE BLOOD COUNT 12.5 10^3/uL (4.0-10.0)
[2019-08-28 12:35] LABS: ALT/SGPT 17 U/L (12-78); BILIRUBIN,TOTAL 0.4 MG/DL (0.2-1.0); BLOOD UREA NITROGEN 13 MG/DL (7-18); CALCIUM LEVEL 9.2 MG/DL (8.5-10.1); CARBON DIOXIDE LEVEL 30 MEQ/L (21-32); CHLORIDE LEVEL 106 MEQ/L (98-107); CHOLESTEROL LEVEL 179 MG/DL (<200); CHOLESTEROL RISK RATIO 3.314 (<5); CREATININE FOR GFR 0.75 MG/DL (0.55-1.30); FREE T4 1.38 NG/DL (0.76-1.46); GLOMERULAR FILTRATION RATE > 60.0 (>58); GLUCOSE, FASTING 84 MG/DL (70-100); HDL CHOLESTEROL 54 MG/DL (>40); LDL CHOLESTEROL 101 MG/DL (<100); NON-HDL-C 125 MG/DL; POTASSIUM SERUM 4.6 MEQ/L (3.5-5.1); SODIUM LEVEL 139 MEQ/L (136-145); TOTAL PROTEIN 6.9 GM/DL (6.4-8.2); TRIGLYCERIDES LEVEL 118 MG/DL (<150)
[2019-08-29 11:14] LABS: CA 125 6.9 U/ML (<30.2)
== END ==
LOC: M LABDRWAD 11:11
PROVIDERS: ATTEND Physician Assistant
DX: Z79.899 Other long term (current) drug therapy (principal); C56.9 Malignant neoplasm of unspecified ovary; E03.9 Hypothyroidism, unspecified; E78.00 Pure hypercholesterolemia, unspecified; Z85.41 Personal history of malignant neoplasm of cervix uteri

== ENCOUNTER → 2019-09-08 | Outpatient (CLI) | payer OTHER ==
--- NOTE | 2019-09-08 09:58 | REP ---
Clinical: Follow up abnormal lung findings. Technique: Axial noncontrast images from the thoracic inlet to the upper abdomen with coronal and sagittal re-formations. Comparison: 10/10/2018 Findings: The bilateral lung contreras are relatively well aerated. Two partially cavitary lesions along the subpleural right lower lobe are again identified measuring approximately 13 and 15 mm maximal diameter appearing relatively similar to prior examination. A small noncalcified satellite nodules adjacent to the larger lower cavitary lesion have decreased in size and number. No new abnormalities are identified. Tracheobronchial tree is patent. No obvious adenopathy. Mediastinum demonstrates normal thoracic aorta, pulmonary vasculature and heart/pericardium. Musculoskeletal structures are intact. Impression: 1. The partially cavitary lesions along the periphery of the right lower lobe remain essentially stable. Smaller satellite lesions have somewhat decreased. Findings may represent sequelae of granulomas disease. 2. No new acute mediastinal or pleuroparenchymal process appreciated. Electronically Signed by Arnaud Delcid MD 09/08/2019 09:49 A
== END ==
LOC: M RAD 09:27
PROVIDERS: ATTEND Internal Medicine Pulmonary Disease
DX: R91.8 Other nonspecific abnormal finding of lung field (principal)

== ENCOUNTER → 2019-09-09 | Outpatient (CLI) | payer OTHER ==
--- NOTE | 2019-09-09 13:37 | REP ---
Clinical: Acute bronchitis . Comparison: 02/06/2019 . Technique: PA and lateral. Findings: The mediastinum and cardiac silhouette are normal. There is a 1 cm round cavitary lesion in the right lower lung zone confirmed on CT dated 09/08/2019 and appears relatively stable in size when compared to the chest x-ray dated 06/09/2017. The lung contreras are otherwise clear and without acute consolidation, effusion, or pneumothorax. The skeletal structures are intact and normal. Impression: 1. No acute cardiopulmonary process. 2. Small cavitary lesion in the right lower lobe similar to multiple prior examinations through 06/09/2017. Electronically Signed by Arnaud Delcid MD 09/09/2019 01:29 P
== END ==
LOC: M ADAMS 13:15
PROVIDERS: ATTEND Physician Assistant Medical
DX: J20.9 Acute bronchitis, unspecified (principal)

== ENCOUNTER 2019-10-01 06:02 | Day surgery (SDC) | payer OTHER ==
[~2019-10-01] VITALS: Ht 160 cm; Wt 63.2 kg
[~2019-10-01 06:02] MED LIST changes: +LIDOCAINE 1% MDV 20ML VIAL SQ PRN
[2019-10-01 06:28] LABS: HEMATOCRIT 43.2 % (36.0-47.0); HEMOGLOBIN 14.2 g/dl (12.0-15.5); MEAN CORPUSCULAR HEMOGLOBIN 30.4 pg (27.0-33.0); MEAN CORPUSCULAR HGB CONC 32.9 g/dl (32.0-36.5); MEAN CORPUSCULAR VOLUME 92.5 fl (80.0-96.0); PLATELET COUNT, AUTOMATED 363 10^3/uL (150-450); RED BLOOD COUNT 4.67 10^6/uL (4.00-5.40); WHITE BLOOD COUNT 10.4 10^3/uL (4.0-10.0)
[2019-10-01] MEDS ORDERED: LR 1,000 ML IV ONE (07:00)
[2019-10-01] MEDS ORDERED: ceFAZolin SOD 2 GM in IV 1 EA IV ONE (07:00)
[2019-10-01] MEDS ORDERED: SUGAMMADEX SODIUM 500 MG/5 ML VIAL (BRIDION) As Ordered ONE (07:13)
[2019-10-01] MEDS ORDERED: KETOROLAC 60 MG/2 ML VIAL (J1885) As Ordered ONE (07:13)
[2019-10-01] MEDS ORDERED: ROCURONIUM BROMIDE 50 MG/5 ML VIAL As Ordered ONE (07:13)
[2019-10-01] MEDS ORDERED: dexameTHASONE 4 MG/ML 1ML VIAL (J1100) As Ordered ONE (07:13)
[2019-10-01] MEDS ORDERED: ONDANSETRON 4MG/2ML VIAL (J2405) As Ordered ONE (07:13)
[2019-10-01] MEDS ORDERED: METHYLENE BLUE 0.5% (5MG/ML) 10 ML AMP (PROVAYBLUE)(Q9968 PER 1MG) As Ordered ONE (07:13)
[2019-10-01] MEDS ORDERED: PROPOFOL 200 MG/20 ML VIAL As Ordered ONE (07:13)
[2019-10-01] MEDS ORDERED: ACETAMINOPHEN 1000MG 100ML IV BTL (OFIRMEV) (J0131 PER 10MG) As Ordered ONE (07:13)
[2019-10-01] MEDS ORDERED: BUPIVACAINE HCL 0.25% 30 ML VIAL As Ordered ONE (07:13)
[2019-10-01] MEDS ORDERED: LIDOCAINE 2% INJ 100 MG/5 ML SDV (FOR ANES.) As Ordered ONE (07:13)
[2019-10-01] MEDS ORDERED: MIDAZOLAM INJ 2 MG/2 ML VIAL (J2250) As Ordered ONE (07:14)
[2019-10-01] MEDS ORDERED: fentaNYL 100 MCG/2 ML INJECTION (J3010) As Ordered ONE ×2 (07:14→09:59)
[2019-10-01] MEDS ORDERED: HYDROmorphone HCL 2 MG/ML 1ML VIAL (J1170) As Ordered ONE (07:14)
[2019-10-01] MEDS ORDERED: SCOPOLAMINE 1MG TRANSDERMAL PATCH As Ordered ONE (07:23)
[2019-10-01] MEDS ORDERED: SCOPOLAMINE 1MG TRANSDERMAL PATCH TOP ONE (07:30)
[2019-10-01] MEDS ORDERED: ePHEDrine SULFATE 25 MG/5 ML(5MG/ML) SYRINGE As Ordered ONE (08:28)
[2019-10-01] MEDS ORDERED: GLYCOPYRROLATE INJ 0.2 MG/ML 2 ML VIAL As Ordered ONE (08:30)
[2019-10-01] MEDS: fentaNYL 100 MCG/2 ML INJECTION (J3010) IV PRN ×4 (10:00→10:17)
[2019-10-01] MEDS ORDERED: OXYC1TAB23 PO (10:17)
[2019-10-01] MEDS ORDERED: IBUP80TA PO (10:21)
[2019-10-01] MEDS ORDERED: PERCOCET 5MG/325MG TAB PO PRN ×3 (10:30→11:30)
[2019-10-01] MEDS ORDERED: ONDANSETRON 4MG/2ML VIAL (J2405) IV PRN (10:30)
[2019-10-01] MEDS ORDERED: LR 1,000 ML IV SCH ×2 (10:30→11:30)
[2019-10-01] MEDS ORDERED: HYDROMORPHONE HCL 0.5 MG/ 0.5 ML SYRINGE (J1170 PER 1) IV PRN (10:30)
[2019-10-01] MEDS ORDERED: KETOROLAC 30 MG/ML VIAL (J1885) IV PRN (10:30)
[2019-10-01] MEDS ORDERED: METOCLOPRAMIDE INJ 10MG/2ML VIAL (J2765) IV PRN (10:30)
[2019-10-01 11:10] VITALS: BP 112/67
[2019-10-01] MEDS ORDERED: zolPIDEM TARTRATE 5 MG TAB PO PRN (11:30)
[2019-10-01] MEDS ORDERED: PROMETHAZINE INJ 25 MG/ML VIAL (J2550) IV PRN (11:30)
[2019-10-01] MEDS ORDERED: MORPHINE 4 MG/ML 1ML VIAL/SYRINGE (J2270) IV PRN (11:30)
[2019-10-01 11:40] VITALS: BP 113/62
[2019-10-01 12:10] VITALS: BP 119/64
[2019-10-01 13:10] VITALS: BP 115/61
[2019-10-01] MEDS ORDERED: KETOROLAC 30 MG/ML VIAL (J1885) IV SCH (14:00)
[2019-10-01 14:10] VITALS: BP 94/55
--- NOTE | 2019-10-01 14:27 | RO ---
DATE OF PROCEDURE: 10/01/2019 PREOPERATIVE DIAGNOSES: 1. Abnormal uterine bleeding. 2. Fibroid uterus. POSTOPERATIVE DIAGNOSES: 1. Abnormal uterine bleeding. 2. Fibroid uterus. 3. Right persistent ovarian cyst. PROCEDURES PERFORMED: 1. Robotic-assisted laparoscopic hysterectomy. 2. Right salpingo-oophorectomy. 3. Cystoscopy. SURGEON: Dr. Shireen Rich PHOTOFLASH POWDER MIXER: None. ANESTHESIA: General endotracheal anesthesia. ESTIMATED BLOOD LOSS: 50 mL. INTRAVENOUS FLUIDS: 1300 mL lactated Ringer's solution. URINE OUTPUT: 150 mL. PREOPERATIVE ANTIBIOTICS: 2 grams of Ancef. OPERATIVE FINDINGS: Patient with a fibroid uterus, right ovarian cyst which has been persistent. CYSTOSCOPIC FINDINGS: Revealed normal bladder mucosa. No foreign bodies or objects. Bilateral ureter jets were observed during cystoscopy. SPECIMENS: Cervix, uterus, right fallopian tube and ovary. DESCRIPTION OF OPERATION: After informed consent was obtained and written consent was reviewed, the patient was brought to the operating room where she was placed under general endotracheal anesthesia. She was then placed in lithotomy position and was prepped and draped in a normal sterile fashion. A time out in the operating room was then performed identifying the patient, the procedure to be performed, as well as, drug allergies. Speculum was then placed revealing the cervix. Anterior and posterior aspects of the cervix stitched with #0 Vicryl. A medium VCare uterine manipulator was advanced through the cervical os for means to manipulate the uterus. 7 mL of air was then insufflated. A cervical cap as well as the vaginal sleeve was advanced down into the vagina. Leal catheter was then placed and set to gravity. Gloves were changed and attention was turned to the patient's abdomen where a Veress needle was placed through the umbilicus. Pneumoperitoneum was obtained with CO2 gas. The supraumbilical area was then infused with 0.25% Marcaine. An incision was made in this area. An 8 mm trocar and sleeve was advanced through this incision under direct visualization. The laparoscope was then replaced revealing intra-abdominal placement. Three additional accessory ports were placed, one to the patient's right side and two to the patient's left side. Each one of these areas were infused with 0.25% Marcaine. Incision was made in each one of these areas and 8 mm trocars and sleeves were advanced through these incisions under direct visualization. The abdomen was then surveyed with the above-noted findings. Next, the da Leonora was then docked utilizing the camera arm and two operative arms. Using a vessel sealer, an infundibulopelvic ligament on the right side was cauterized and ligated with good hemostasis noted. Further dissection along the mesosalpinx was performed. The round ligaments bilaterally were then cauterized and ligated. The anterior lip of the broad ligaments were then , cauterized and ligated creating a bladder flap. The remainder of the broad and cardinal ligaments were then cauterized and ligated with good hemostasis noted. The uterine vessels were then skeletonized bilaterally and cauterized and ligated with good hemostasis noted. Next, anterior and posterior colpotomies were made using monopolar scissors. The uterus then removed along with the right adnexa. The surgical sites were inspected and noted be hemostatic. The vaginal incision was then closed with #0 V-Loc in a running fashion. The surgical sites were reinspected and noted be hemostatic. The surgical sites were irrigated and suctioned. Vijay was applied over the surgical contreras. The da Leonora was then undocked and a cystoscopy was performed. Leal catheter was removed and the cystoscope was advanced transurethrally into the bladder. Survey showed normal bladder mucosa, no foreign bodies or objects visualized. Bilateral ureter jets were observed. The bladder was then drained. Gloves were changed. Attention was turned to the patient's abdomen where all four trocars were removed and the pneumoperitoneum was then released. All four port sites were closed with #4-0 Monocryl and dressed with Dermabond. The patient was then taken out of lithotomy position, was awakened from general anesthesia and taken to recovery in stable condition. Counts were correct.
== END 2019-10-01 16:10 | disposition home or self-care (01) ==
LOC: M SDC 06:02 → M PED 11:04 → M SDC 16:10
PROVIDERS: ATTEND Obstetrics & Gynecology
DX: N93.9 Abnormal uterine and vaginal bleeding, unspecified (principal); D25.1 Intramural leiomyoma of uterus; D25.2 Subserosal leiomyoma of uterus; N83.01 Follicular cyst of right ovary; N83.11 Corpus luteum cyst of right ovary; E89.0 Postprocedural hypothyroidism; K51.20 Ulcerative (chronic) proctitis without complications; G43.909 Migraine, unspecified, not intractable, without status migrainosus; Z91.013 Allergy to seafood; Z91.040 Latex allergy status; Z79.899 Other long term (current) drug therapy; Z87.891 Personal history of nicotine dependence
CPT/HCPCS: 36415; 58571; 81025; 85027; 86850; 86900; 86901; 88307; J0690; J1100; J1170; J1885; J2250; J2405; J3010; Q9968

== ENCOUNTER 2019-10-09 12:23 | Emergency (ER) | payer OTHER ==
[~2019-10-09] VITALS: Ht 160 cm; Wt 62.7 kg
[~2019-10-09 12:23] MED LIST changes: +IBUP80TA PO; -LIDOCAINE 1% MDV 20ML VIAL SQ PRN; +OXYC1TAB23 PO
[2019-10-09 13:36] LABS: GLUCOSE, URINE (UA) MANUAL NEGATIVE (NEGATIVE); KETONE, URINE MANUAL NEGATIVE (NEGATIVE)
[2019-10-09 13:37] LABS: BILIRUBIN, URINE MANUAL NEGATIVE (NEGATIVE); UROBILINOGEN, URINE MANUAL NORMAL (NORMAL)
[2019-10-09 13:39] LABS: BASO % 0.3 % (0.0-1.0); EOS % 0.4 % (0.0-3.0); HEMATOCRIT 38.4 % (36.0-47.0); HEMOGLOBIN 12.9 g/dl (12.0-15.5); LYMPH % 18.2 % (24.0-44.0); MEAN CORPUSCULAR HEMOGLOBIN 30.6 pg (27.0-33.0); MEAN CORPUSCULAR HGB CONC 33.6 g/dl (32.0-36.5); MEAN CORPUSCULAR VOLUME 91.2 fl (80.0-96.0); MONO # 0.6 10^3/uL (0.0-0.8); MONO % 5.8 % (0.0-5.0); NEUTROPHILS # 8.2 10^3/uL (1.5-8.5); NEUTROPHILS % 75.1 % (36.0-66.0); PLATELET COUNT, AUTOMATED 405 10^3/uL (150-450); RED BLOOD COUNT 4.21 10^6/uL (4.00-5.40); WHITE BLOOD COUNT 10.9 10^3/uL (4.0-10.0)
[2019-10-09] MEDS ORDERED: ISOVUE-370 76% 100ML VIAL (Q9967) As Ordered ONE (13:44)
[2019-10-09 13:48] LABS: SQUAMOUS EPITHELIAL CELL URINE LARGE AMOUNT /hpf (SMALL AMT)
[2019-10-09 13:49] LABS: BACTERIA, URINE MOD AMOUNT
[2019-10-09 13:56] LABS: HYALINE CAST, URINE NONE SEEN /lpf (0-1)
--- NOTE | 2019-10-09 14:08 | REP ---
Clinical: Postoperative pain. Technique: Axial contrast enhanced images from the lung bases to the pubic symphysis using 100 ml Isovue 370 intravenous contrast material with coronal and sagittal re-formations. Comparison: 12/15/2016. Findings: Lung bases demonstrate 1.5 cm cystic lesion along the posterior right lower lobe which appears relatively stable when compared to 01/31/2018. Liver, spleen, pancreas, gallbladder, bilateral adrenal glands and kidneys are normal. The enteric system is without obstruction or acute inflammatory process. Pelvis demonstrates normal bladder and evidence for prior hysterectomy. No ascites. No free air. No adenopathy. Abdominal aorta and vasculature normal. Musculoskeletal structures demonstrate age-related degenerative changes without focal abnormality. Surrounding subcutaneous tissues are within normal limits. Impression: No acute abdominopelvic pathology appreciated. No ascites. No adenopathy. No focal inflammatory stranding. Electronically Signed by Arnaud Delcid MD 10/09/2019 02:00 P
[2019-10-09 14:11] LABS: ALBUMIN 3.9 GM/DL (3.2-5.2); ALT/SGPT 21 U/L (12-78); BILIRUBIN,DIRECT < 0.1 MG/DL (0.0-0.2); BILIRUBIN,TOTAL 0.2 MG/DL (0.2-1.0); TOTAL PROTEIN 7.3 GM/DL (6.4-8.2)
[2019-10-09] MEDS ORDERED: CIPROFLOXACIN 500 MG TAB PO ONE (14:30)
[2019-10-09] MEDS ORDERED: CIPR-249 PO (14:37)
[2019-10-09 14:54] VITALS: BP 130/84
== END 2019-10-09 14:55 | disposition home or self-care (01) ==
LOC: M ED 12:23
DX: N39.0 Urinary tract infection, site not specified (principal); G89.18 Other acute postprocedural pain; R91.1 Solitary pulmonary nodule; E03.9 Hypothyroidism, unspecified; Z79.51 Long term (current) use of inhaled steroids; Z79.891 Long term (current) use of opiate analgesic; Z79.899 Other long term (current) drug therapy; Z87.891 Personal history of nicotine dependence; Z91.013 Allergy to seafood; Z91.040 Latex allergy status
CPT/HCPCS: 36415; 74177; 80047; 80076; 81000; 83605; 85025; 87040; 87086; 99283; Q9967

== ENCOUNTER → 2019-11-17 | Outpatient (CLI) | payer OTHER ==
[~2019-11-17] MED LIST changes: +CIPR-249 PO
[2019-11-17 13:42] LABS: BASO % 0.4 % (0.0-1.0); EOS # 0.1 10^3/uL (0.0-0.5); EOS % 0.7 % (0.0-3.0); HEMATOCRIT 39.9 % (36.0-47.0); HEMOGLOBIN 12.8 g/dl (12.0-15.5); LYMPH # 2.5 10^3/uL (1.5-5.0); LYMPH % 24.1 % (24.0-44.0); MEAN CORPUSCULAR HGB CONC 32.1 g/dl (32.0-36.5); MEAN CORPUSCULAR VOLUME 93.4 fl (80.0-96.0); MONO # 0.6 10^3/uL (0.0-0.8); MONO % 5.4 % (0.0-5.0); NEUTROPHILS # 7.1 10^3/uL (1.5-8.5); NEUTROPHILS % 68.9 % (36.0-66.0); PLATELET COUNT, AUTOMATED 387 10^3/uL (150-450); RED BLOOD COUNT 4.27 10^6/uL (4.00-5.40); WHITE BLOOD COUNT 10.3 10^3/uL (4.0-10.0)
[2019-11-17 13:58] LABS: ALBUMIN 3.8 GM/DL (3.2-5.2); ALT/SGPT 16 U/L (12-78); BILIRUBIN,TOTAL 0.4 MG/DL (0.2-1.0); BLOOD UREA NITROGEN 10 MG/DL (7-18); CALCIUM LEVEL 8.7 MG/DL (8.5-10.1); CARBON DIOXIDE LEVEL 24 MEQ/L (21-32); CHLORIDE LEVEL 105 MEQ/L (98-107); CHOLESTEROL LEVEL 185 MG/DL (<200); CHOLESTEROL RISK RATIO 3.189 (<5); CREATININE FOR GFR 0.64 MG/DL (0.55-1.30); GLOMERULAR FILTRATION RATE > 60.0 (>58); GLUCOSE, FASTING 84 MG/DL (70-100); HDL CHOLESTEROL 58 MG/DL (>40); LDL CHOLESTEROL 106 MG/DL (<100); NON-HDL-C 127 MG/DL; POTASSIUM SERUM 4.3 MEQ/L (3.5-5.1); SODIUM LEVEL 139 MEQ/L (136-145); THYROID STIMULATING HORMONE 0.079 uIU/ML (0.358-3.740); TOTAL PROTEIN 6.8 GM/DL (6.4-8.2); TRIGLYCERIDES LEVEL 106 MG/DL (<150)
[2019-11-17 14:17] LABS: HEMOGLOBIN A1c 5.2 %
== END ==
LOC: M PLALAB 10:15
PROVIDERS: ATTEND Nurse Practitioner Adult Health
DX: E03.9 Hypothyroidism, unspecified (principal); Z79.899 Other long term (current) drug therapy

== ENCOUNTER → 2020-05-18 | Outpatient (CLI) | payer OTHER ==
--- NOTE | 2020-05-19 07:28 | REP ---
BILATERAL MAMMOGRAM WITH 3D TOMOSYNTHESIS: Family history of breast cancer in mother and sister. COMPARISON: Mammogram 09/17/2015. [facility] lifetime risk of breast cancer 25.5%. MLO and CC views of both breasts performed with 3D tomosynthesis. There is moderately dense fibroglandular tissue bilaterally, limiting the sensitivity of the mammogram. There is a new spiculated nodule in the upper inner left breast. This measures about 2 cm in diameter. No other mass is seen. There are a couple of tiny calcifications in the spiculated nodule. IMPRESSION: ACR 0, incomplete. New spiculated nodule 2 cm in diameter upper inner left breast. Recommend spot compression views and ultrasound to further evaluate. BIRADS 0: BI-RADS/ACR category 0 mammogram, Incomplete: Need additional imaging evaluation and/or prior mammograms for comparison. Darcy Martinez This mammogram was interpreted with the aid of an FDA-approved computer-aided detection system. The patient states that she or he has not had a clinical breast exam in over a year. The patient letter being requested is M0.
--- NOTE | 2020-05-26 13:30 | DEXA ---
AP SPINE L1 - L4 1.471 2.2 2.4 LT FEMUR TOTAL 1.131 1.0 1.4 LT NECK 1.153 0.8 1.5 RT FEMUR TOTAL 1.198 1.5 1.9 RT NECK 1.160 0.9 1.6 TOTAL BODY TOTAL OTHER COMMENTS: Normal bone densitometry of the spine and hips. FOLLOW-UP: Recommendation for the next bone density exam: 5 years. CRYSTAL
== END ==
LOC: M WHC 14:24
PROVIDERS: ATTEND Nurse Practitioner Adult Health
DX: R92.2 Inconclusive mammogram (principal); Z13.820 Encounter for screening for osteoporosis

== ENCOUNTER → 2020-05-25 | Outpatient (CLI) | payer OTHER ==
--- NOTE | 2020-05-26 04:12 | REP ---
DIAGNOSTIC MAMMOGRAM LEFT BREAST WITH LEFT BREAST ULTRASOUND: Spot compression views left breast performed. These confirm the presence of a 2 cm spiculated mass in the upper inner left breast. Real-time sonographic evaluation of left breast performed in the upper inner aspect. There is an irregular hypoechoic mass with internal blood flow with Doppler evaluation. This measures 1.6 cm in maximum diameter. IMPRESSION: ACR 5. Findings compatible with breast cancer. Spiculated mass is seen both mammographically and sonographically in the upper inner left breast. Recommend ultrasound-guided biopsy. BIRADS 5: BI-RADS/ACR category 5 mammogram. Highly Suggestive of Malignancy - appropriate action should be taken. The patient letter being requested is M4.
== END ==
LOC: M WHC 14:45
PROVIDERS: ATTEND Nurse Practitioner Adult Health
DX: Z12.31 Encounter for screening mammogram for malignant neoplasm of breast (principal); Z13.820 Encounter for screening for osteoporosis

== ENCOUNTER → 2020-10-11 | Outpatient (CLI) | payer OTHER | LOC: M PLALAB 09:29 | PROVIDERS: ATTEND Internal Medicine Pulmonary Disease | DX: E03.9 Hypothyroidism, unspecified (principal); R73.9 Hyperglycemia, unspecified; Z79.899 Other long term (current) drug therapy; E78.00 Pure hypercholesterolemia, unspecified ==

== ENCOUNTER → 2020-10-11 | Outpatient (REF) | payer OTHER ==
[2020-10-11 14:19] LABS: HEMATOCRIT 34.7 % (36.0-47.0); MEAN CORPUSCULAR HEMOGLOBIN 31.9 pg (27.0-33.0); MEAN CORPUSCULAR HGB CONC 31.7 g/dl (32.0-36.5); MEAN CORPUSCULAR VOLUME 100.6 fl (80.0-96.0); PLATELET COUNT, AUTOMATED 182 10^3/uL (150-450); RED BLOOD COUNT 3.45 10^6/uL (4.00-5.40); WHITE BLOOD COUNT 9.4 10^3/uL (4.0-10.0)
[2020-10-11 14:57] LABS: ATYPICAL LYMPH 1 % (0-5); LYMPHOCYTES 31 % (16-44); MONOCYTES 3 % (0-5); NEUTROPHILS 37 % (28-66)
[2020-10-11 14:58] LABS: ANISOCYTOSIS 1+; PLATELET ESTIMATE NORMAL (NORMAL)
[2020-10-11 14:59] LABS: TOXIC GRANULATION 2+
[2020-10-11 15:08] LABS: ALT/SGPT 21 U/L (12-78); BILIRUBIN,TOTAL 0.4 MG/DL (0.2-1.0); BLOOD UREA NITROGEN 15 MG/DL (7-18); CALCIUM LEVEL 9.3 MG/DL (8.5-10.1); CARBON DIOXIDE LEVEL 28 MEQ/L (21-32); CHLORIDE LEVEL 105 MEQ/L (98-107); CHOLESTEROL LEVEL 190 MG/DL (<200); CHOLESTEROL RISK RATIO 2.835 (<5); CREATININE FOR GFR 0.63 MG/DL (0.55-1.30); GLOMERULAR FILTRATION RATE > 60.0 (>58); GLUCOSE, FASTING 100 MG/DL (70-100); HDL CHOLESTEROL 67 MG/DL (>40); LDL CHOLESTEROL 100 MG/DL (<100); NON-HDL-C 123 MG/DL; POTASSIUM SERUM 4.2 MEQ/L (3.5-5.1); SODIUM LEVEL 139 MEQ/L (136-145); THYROID STIMULATING HORMONE 0.963 uIU/ML (0.358-3.740); TOTAL PROTEIN 7.1 GM/DL (6.4-8.2); TRIGLYCERIDES LEVEL 114 MG/DL (<150)
[2020-10-11 15:23] LABS: HEMOGLOBIN A1c 5.4 %
== END ==
LOC: M PLALAB 13:18
PROVIDERS: ATTEND Nurse Practitioner Adult Health
DX: E03.9 Hypothyroidism, unspecified (principal); R73.9 Hyperglycemia, unspecified; E78.00 Pure hypercholesterolemia, unspecified; Z79.899 Other long term (current) drug therapy

== ENCOUNTER → 2020-10-15 | Outpatient (CLI) | payer OTHER ==
[~2020-10-15] MED LIST changes: +ISOVUE-370 76% 100ML VIAL As Ordered ONE
--- NOTE | 2020-10-15 17:28 | REP ---
INDICATION: OTHER NONSPECIFIC ABN FINDING OF LUNG FIELD. Recent diagnosis breast carcinoma. COMPARISON: Multiple comparison CT studies are reviewed, the most recent which is from an outside institution dated July 05, 2020. Comparison CT studies are also reviewed from September 08, 2019 and April 03, 2018.. TECHNIQUE: Helical scanning is acquired following intravenous injection of 75 mL of intravenous Isovue 370. 3 mm axial images re-formatted. Coronal and sagittal MPR and coronal MIP images are generated. FINDINGS: Digital preliminary conductor/brakeman radiograph demonstrates a right-sided Rgbims-N-Qhhi catheter. A marker clip is noted in the left superomedial breast at the site where prior study showed a breast mass. This appears decreased in size. There is no visible axillary or internal mammary lymphadenopathy. There is a right hilar lymph node measuring 1.1 cm in greatest diameter which is felt to be unchanged. There is a 2nd enlarged lymph node in the right hilus more inferiorly. This has a 14 mm short axis dimension. It is larger than on the prior study of 05 July 2020 when it measured 11 mm. There is no mediastinal lymphadenopathy. No left hilar adenopathy is seen. No adrenal lesion is seen. Visualized upper abdominal structures are unremarkable. In the lung contreras, the 2 previously noted cavitary nodules are again seen on the right. These are both in the right lower lobe, 1 inferior and 1 superior. There are some satellite nodules associated with the inferior nodule. This nodule measures 13 mm in greatest dimension. The more superior nodule measures 12 mm. There is less intracavitary air in the lower of the 2 nodules when compared with the prior study. They are unchanged in size. No new pulmonary nodule is appreciated. No bony destructive lesion seen. IMPRESSION: Interval increase in the size of 1 of the right lower hilar lymph nodes since the recent prior study. Two cavitary nodules persist in the right lower lobe unchanged in overall size. Less intracavitary air is visible in the more inferior of the 2. No new pulmonary nodule is seen. And Kmgtru-Y-Cpmi catheter is noted in place. Slight interval decrease in the size of the left breast mass. <Electronically signed by Grant Grey > 10/15/20 [id number]
== END ==
LOC: M RAD 08:11
PROVIDERS: ATTEND Internal Medicine Pulmonary Disease
DX: R91.8 Other nonspecific abnormal finding of lung field (principal); R59.0 Localized enlarged lymph nodes; N63.20 Unspecified lump in the left breast, unspecified quadrant
CPT/HCPCS: 71260; Q9967

== ENCOUNTER → 2020-10-19 | Outpatient (REF) | payer OTHER ==
[~2020-10-19] MED LIST changes: -ISOVUE-370 76% 100ML VIAL As Ordered ONE
[2020-10-19 17:45] LABS: APPEARANCE, URINE CLEAR (CLEAR); BACTERIA, URINE AUTO NEGATIVE (NEGATIVE); BILIRUBIN, URINE AUTO NEGATIVE (NEGATIVE); BLOOD, URINE BLOOD 3+ (NEGATIVE); COLOR, URINE YELLOW (YELLOW); GLUCOSE, URINE (UA) AUTO NEGATIVE (NEGATIVE); KETONE, URINE AUTO TRACE mg/dL (NEGATIVE); LEUKOCYTE ESTERASE, URINE AUTO NEGATIVE (NEGATIVE); MUCUS, URINE SMALL (NEGATIVE); NITRITE, URINE AUTO NEGATIVE (NEGATIVE); PROTEIN, URINE AUTO NEGATIVE (NEGATIVE); RBC, URINE AUTO 21 /HPF (0-3); SPECIFIC GRAVITY URINE AUTO 1.018 (1.002-1.035); SQUAMOUS EPITHELIAL CELL UR AU 1 /HPF (0-6); UROBILINOGEN, URINE AUTO 0.2 mg/dL (0.0-2.0); WBC, URINE AUTO 1 /HPF (0-3)
== END ==
LOC: M SMT 16:45
PROVIDERS: ATTEND Nurse Practitioner Women's Health
DX: R31.29 Other microscopic hematuria (principal)

== ENCOUNTER → 2020-11-10 | Outpatient (CLI) | payer OTHER ==
[~2020-11-10] MED LIST changes: +CLAR10CA3 PO; +LEVO500T3 PO
== END ==
LOC: M LABSMTC 10:37
PROVIDERS: ATTEND Anesthesiology
DX: Z01.812 Encounter for preprocedural laboratory examination (principal); Z20.828 Contact with and (suspected) exposure to other viral communicable diseases

== ENCOUNTER 2020-11-15 08:35 | Day surgery (SDC) | payer OTHER ==
[~2020-11-15] VITALS: Ht 160 cm; Wt 62.6 kg
[~2020-11-15 08:35] MED LIST changes: +ALBUTEROL SULFATE 2.5 MG/0.5 ML INH NEB SOLN INH ONE; +LIDOCAINE 4% INJ 5ML AMP INH ONE; +LR 1,000 ML IV ONE
[2020-11-15] MEDS ORDERED: SCOPOLAMINE 1MG TRANSDERMAL PATCH As Ordered ONE (09:33)
[2020-11-15] MEDS ORDERED: LIDOCAINE 1% MDV 20ML VIAL As Ordered ONE (09:52)
[2020-11-15] MEDS ORDERED: THROMBIN SOLN 5,000 UNITS VIAL As Ordered ONE (09:52)
[2020-11-15] MEDS ORDERED: CETACAINE SPRAY 5GM As Ordered ONE (09:52)
[2020-11-15] MEDS ORDERED: EPINEPHrine 1MG/10ML SYRINGE 1.5IN As Ordered ONE (09:52)
[2020-11-15] MEDS ORDERED: SCOPOLAMINE 1MG TRANSDERMAL PATCH TOP ONE (10:00)
[2020-11-15] MEDS ORDERED: ROCURONIUM BROMIDE 50 MG/5 ML VIAL As Ordered ONE (10:56)
[2020-11-15] MEDS ORDERED: LIDOCAINE 2% 100MG/5ML SDV (FOR ANES.) As Ordered ONE (10:56)
[2020-11-15] MEDS ORDERED: SUGAMMADEX SODIUM 500 MG/5 ML VIAL (BRIDION) As Ordered ONE (10:56)
[2020-11-15] MEDS ORDERED: propofoL 200 MG/20 ML VIAL As Ordered ONE (10:56)
[2020-11-15] MEDS ORDERED: ONDANSETRON 4MG/2ML VIAL As Ordered ONE (10:56)
[2020-11-15] MEDS ORDERED: fentaNYL 100 MCG/2 ML INJECTION (J3010) As Ordered ONE (10:56)
[2020-11-15] MEDS ORDERED: dexameTHASONE 4 MG/ML 1ML VIAL (J1100 PER 1MG) As Ordered ONE (10:56)
[2020-11-15] MEDS ORDERED: MIDAZOLAM INJ 2MG/2ML VIAL (J2250 PER 1MG) As Ordered ONE (10:56)
[2020-11-15] MEDS ORDERED: ePHEDrine SULFATE 25 MG/5 ML(5MG/ML) SYRINGE As Ordered ONE (10:56)
[2020-11-15] MEDS ORDERED: METOCLOPRAMIDE INJ 10MG/2ML VIAL (J2765 PER 1) As Ordered ONE (10:56)
--- NOTE | 2020-11-15 11:54 | REP ---
INDICATION: R/O PNEUMO- WILL CALL WHEN READY. COMPARISON: Comparison chest x-ray September 09, 2019.. TECHNIQUE: Portable upright AP radiograph. FINDINGS: A right-sided Rinpge-D-Ntrj catheter is noted in place with its tip in the expected location of the superior vena cava. No infiltrate is seen. There is no evidence of pneumothorax or hydrothorax. Mediastinum is not widened. Heart size is normal. IMPRESSION: Right-sided Cyvmon-B-Cphw catheter in place. No evidence of complication. No acute disease. <Electronically signed by Grant Grey > 11/15/20 [id number]
[2020-11-15] MEDS ORDERED: fentaNYL 100 MCG/2 ML INJECTION (J3010) IV PRN (12:00)
[2020-11-15] MEDS ORDERED: LR 1,000 ML IV SCH (12:00)
[2020-11-15] MEDS ORDERED: HYDROMORPHONE HCL 0.5 MG/ 0.5 ML SYRINGE (J1170 PER 1) IV PRN (12:00)
[2020-11-15] MEDS ORDERED: oxyCODONE 5MG TAB PO PRN (12:00)
[2020-11-15] MEDS ORDERED: ONDANSETRON 4MG/2ML VIAL IV PRN (12:00)
--- NOTE | 2020-11-15 12:13 | ROOR ---
Patient Name: Veronica Wiggins Procedure Date: 11/15/2020 10:09 AM Date of : 1970 Admit Type: Outpatient Age: 50 Note Status: Finalized Attending MD: Paola Barr MD Procedure: Bronchoscopy Indications: Right lower lobe nodule, Hilar lymphadenopathy of the right side Providers: Paola Barr MD (Doctor) Referring MD: 1. No Referring Physician 1. No Referring Physician, Admin. (Referring MD) Requesting Physician: Medicines: General Anesthesia, Cetacaine topical Complications: No immediate complications. Estimated blood loss: Minimal Procedure: Pre-Anesthesia Assessment: - Prior to the procedure, a History and Physical was performed, and patient medications and allergies were reviewed. The patient's tolerance of previous anesthesia was also reviewed. The risks and benefits of the procedure and the sedation options and risks were discussed with the patient. All questions were answered, and informed consent was obtained. Prior Anticoagulants: The patient has taken no previous anticoagulant or antiplatelet agents. ASA Grade Assessment: II - A patient with mild systemic disease. After reviewing the risks and benefits, the patient was deemed in satisfactory condition to undergo the procedure. - Patient identification and proposed procedure were verified prior to the procedure by the physician, the nurse, the anesthesiologist, the steamtable worker and the clinical pharmacy technician. The procedure was verified in the procedure room. The Bronchoscope was introduced through the mouth, via the endotracheal tube (the patient was intubated for the procedure) and advanced to the tracheobronchial tree of both lungs. The procedure was accomplished without difficulty. The patient tolerated the procedure well. Findings: The endotracheal tube is in good position. The visualized portion of the trachea is of normal caliber. The keanu is sharp. The tracheobronchial tree was examined to at least the first subsegmental level. Bronchial mucosa and anatomy are normal; there was some mucosal pitting and webbing. There are no endobronchial lesions, and scant thick white mucoid secretions. An endobronchial ultrasound endoscope was utilized in order to assist with fine needle aspiration in the right hilum. The subcarinal lymph node station and right paratracheal lymph node station (4R) were assessed with EBUS but did not show suspiciously enlarged lymph nodes. Transbronchial needle aspirations of lymph nodes were performed in the right hilum at station 10R and 11R using an Olympus EBUS-TBNA 21 gauge needle and sent for routine cytology. The procedure was guided by ultrasound. Bronchoalveolar lavage was performed in the RLL posterior basal segment (B10) of the lung and sent for routine cytology and bacterial, AFB and fungal analysis. The return was blood-tinged. Mucous plugs were present in the return fluid. Impression: - Right lower lobe nodule - Hilar lymphadenopathy of the right side - The airway examination was normal. - Endobronchial ultrasound was performed. - A transbronchial needle aspiration was performed. - Bronchoalveolar lavage was performed. Recommendation: - Await test results. Procedure Code(s): --- Professional --- 74350, Bronchoscopy, rigid or flexible, including fluoroscopic guidance, when performed; with transbronchial needle aspiration biopsy(s), trachea, main stem and/or lobar bronchus(i) 77019, Bronchoscopy, rigid or flexible, including fluoroscopic guidance, when performed; with bronchial alveolar lavage 10995, Bronchoscopy, rigid or flexible, including fluoroscopic guidance, when performed; with transendoscopic endobronchial ultrasound (EBUS) during bronchoscopic diagnostic or therapeutic intervention(s) for peripheral lesion(s) (List separately in addition to code for primary procedure[s]) CPT copyright 2019 [employer]. All rights reserved. The codes documented in this report are preliminary and upon pattern designer review may be revised to meet current compliance requirements. Attending Participation: I personally performed the entire procedure. Paola Barr MD 11/15/2020 12:12:34 PM Number of Addenda: 0 Note Initiated On: 11/15/2020 10:09 AM
[2020-11-15 12:23] VITALS: BP 105/70
== END 2020-11-15 12:20 | disposition home or self-care (01) ==
LOC: M SDC 08:35
PROVIDERS: ATTEND Internal Medicine Pulmonary Disease
DX: R91.8 Other nonspecific abnormal finding of lung field (principal); R59.0 Localized enlarged lymph nodes; Z85.3 Personal history of malignant neoplasm of breast; E89.0 Postprocedural hypothyroidism; Z92.21 Personal history of antineoplastic chemotherapy; Z87.891 Personal history of nicotine dependence; Z91.013 Allergy to seafood; Z91.040 Latex allergy status; K21.9 Gastro-esophageal reflux disease without esophagitis; Z79.899 Other long term (current) drug therapy
CPT/HCPCS: 31624; 31629; 31654; 71045; 87070; 87102; 87116; 87205; 87206; 88108; 88173; 88305; 88312; 88313; 88342; J1100; J2250; J2405; J2765; J3010

== ENCOUNTER → 2021-01-07 | Outpatient (CLI) | payer OTHER ==
[~2021-01-07] MED LIST changes: -ALBUTEROL SULFATE 2.5 MG/0.5 ML INH NEB SOLN INH ONE; -LIDOCAINE 4% INJ 5ML AMP INH ONE; -LR 1,000 ML IV ONE
[2021-01-07 11:52] LABS: BASO % 0.6 % (0.0-1.0); EOS # 0.4 10^3/uL (0.0-0.5); HEMATOCRIT 42.2 % (36.0-47.0); LYMPH # 2.6 10^3/uL (1.5-5.0); LYMPH % 35.9 % (24.0-44.0); MEAN CORPUSCULAR HEMOGLOBIN 32.5 pg (27.0-33.0); MEAN CORPUSCULAR HGB CONC 33.2 g/dl (32.0-36.5); MEAN CORPUSCULAR VOLUME 97.9 fl (80.0-96.0); MONO # 0.4 10^3/uL (0.0-0.8); MONO % 5.7 % (2.0-8.0); NEUTROPHILS # 3.8 10^3/uL (1.5-8.5); NEUTROPHILS % 52.5 % (36.0-66.0); PLATELET COUNT, AUTOMATED 231 10^3/uL (150-450); RED BLOOD COUNT 4.31 10^6/uL (4.00-5.40); WHITE BLOOD COUNT 7.2 10^3/uL (4.0-10.0)
[2021-01-07 12:36] LABS: ALBUMIN 4.1 GM/DL (3.2-5.2); ALT/SGPT 37 U/L (12-78); BILIRUBIN,TOTAL 0.2 MG/DL (0.2-1.0); BLOOD UREA NITROGEN 12 MG/DL (7-18); CARBON DIOXIDE LEVEL 29 MEQ/L (21-32); CHLORIDE LEVEL 105 MEQ/L (98-107); CHOLESTEROL LEVEL 228 MG/DL (<200); CHOLESTEROL RISK RATIO 3.864 (<5); CREATININE FOR GFR 0.69 MG/DL (0.55-1.30); GLOMERULAR FILTRATION RATE > 60.0 (>58); GLUCOSE, FASTING 95 MG/DL (70-100); HDL CHOLESTEROL 59 MG/DL (>40); LDL CHOLESTEROL 130 MG/DL (<100); NON-HDL-C 169 MG/DL; SODIUM LEVEL 141 MEQ/L (136-145); THYROID STIMULATING HORMONE 0.173 uIU/ML (0.358-3.740); TOTAL PROTEIN 7.1 GM/DL (6.4-8.2); TRIGLYCERIDES LEVEL 193 MG/DL (<150)
[2021-01-07 13:41] LABS: HEMOGLOBIN A1c 5.1 %
== END ==
LOC: M PLALAB 08:22
PROVIDERS: ATTEND Nurse Practitioner Adult Health
DX: E03.9 Hypothyroidism, unspecified (principal); R73.9 Hyperglycemia, unspecified; E78.00 Pure hypercholesterolemia, unspecified; Z79.899 Other long term (current) drug therapy

== ENCOUNTER → 2021-04-01 | Outpatient (CLI) | payer OTHER ==
--- NOTE | 2021-04-01 14:35 | REP ---
INDICATION: BREAST CA W/ NEW LT ARM SWELLING, R/O DVT. COMPARISON: None. TECHNIQUE: Multiple ultrasonographic images of the deep venous structures of the left upper extremity were obtained to rule out deep venous thrombosis. FINDINGS: There is no abnormal echogenic material seen in any of the visualized deep venous structures of the left upper extremity. Coaptation where applicable is appropriate throughout. IMPRESSION: Negative exam. <Electronically signed by Otto Voss > 04/01/21 [id number]
== END ==
LOC: M RAD 13:46
PROVIDERS: ATTEND Internal Medicine
DX: C50.212 Malignant neoplasm of upper-inner quadrant of left female breast (principal); I97.2 Postmastectomy lymphedema syndrome; R60.0 Localized edema

== ENCOUNTER → 2021-04-06 | Outpatient (CLI) | payer OTHER ==
[2021-04-06 10:33] LABS: BASO % 0.3 % (0.0-1.0); EOS # 0.1 10^3/uL (0.0-0.5); EOS % 1.4 % (0.0-3.0); HEMATOCRIT 39.5 % (36.0-47.0); HEMOGLOBIN 12.9 g/dl (12.0-15.5); LYMPH # 2.1 10^3/uL (1.5-5.0); LYMPH % 24.7 % (24.0-44.0); MEAN CORPUSCULAR HEMOGLOBIN 30.8 pg (27.0-33.0); MEAN CORPUSCULAR HGB CONC 32.7 g/dl (32.0-36.5); MEAN CORPUSCULAR VOLUME 94.3 fl (80.0-96.0); MONO # 0.6 10^3/uL (0.0-0.8); MONO % 6.7 % (2.0-8.0); NEUTROPHILS # 5.8 10^3/uL (1.5-8.5); NEUTROPHILS % 66.7 % (36.0-66.0); PLATELET COUNT, AUTOMATED 257 10^3/uL (150-450); RED BLOOD COUNT 4.19 10^6/uL (4.00-5.40); WHITE BLOOD COUNT 8.7 10^3/uL (4.0-10.0)
[2021-04-06 11:17] LABS: ALBUMIN 3.8 GM/DL (3.2-5.2); ALT/SGPT 18 U/L (12-78); BILIRUBIN,TOTAL 0.3 MG/DL (0.2-1.0); BLOOD UREA NITROGEN 11 MG/DL (7-18); CARBON DIOXIDE LEVEL 28 MEQ/L (21-32); CHLORIDE LEVEL 106 MEQ/L (98-107); CHOLESTEROL LEVEL 199 MG/DL (<200); CHOLESTEROL RISK RATIO 3.901 (<5); CREATININE FOR GFR 0.77 MG/DL (0.55-1.30); GLOMERULAR FILTRATION RATE > 60.0 (>58); GLUCOSE, FASTING 99 MG/DL (70-100); HDL CHOLESTEROL 51 MG/DL (>40); LDL CHOLESTEROL 113 MG/DL (<100); NON-HDL-C 148 MG/DL; POTASSIUM SERUM 4.1 MEQ/L (3.5-5.1); SODIUM LEVEL 140 MEQ/L (136-145); THYROID STIMULATING HORMONE 0.123 uIU/ML (0.358-3.740); TOTAL PROTEIN 7.2 GM/DL (6.4-8.2); TRIGLYCERIDES LEVEL 175 MG/DL (<150)
[2021-04-06 15:02] LABS: HEMOGLOBIN A1c 5.3 %
== END ==
LOC: M PLALAB 08:10
PROVIDERS: ATTEND Nurse Practitioner Family
DX: R73.9 Hyperglycemia, unspecified (principal); E78.00 Pure hypercholesterolemia, unspecified; E03.9 Hypothyroidism, unspecified; Z79.899 Other long term (current) drug therapy

== ENCOUNTER → 2021-04-08 | Outpatient (CLI) | payer OTHER ==
[~2021-04-08] MED LIST changes: +ISOVUE-370 76% 100ML VIAL As Ordered ONE
--- NOTE | 2021-04-08 10:11 | REPVR ---
PROCEDURE INFORMATION: Exam: CT Head Without And With Contrast Exam date and time: 04/08/2021 9:32 AM Age: 50 years old Clinical indication: Condition or disease; History of cancer (specify primary cancer site): ; Primary cancer: Breast CA, headaches, nausea, mets? TECHNIQUE: Imaging protocol: Computed tomography of the head without and with intravenous contrast. Radiation optimization: All CT scans at this facility use at least one of these dose optimization techniques: automated exposure control; mA and/or kV adjustment per patient size (includes targeted exams where dose is matched to clinical indication); or iterative reconstruction. Contrast material: ISOVUE 370; Contrast volume: 75 ml; Contrast route: INTRAVENOUS (IV); COMPARISON: MRI-Brain without Contrast 02/08/2015 2:12 PM FINDINGS: Brain: There is no acute intracranial hemorrhage. No extra-axial fluid collection. No evidence of acute infarct. Lundberg white differentiation is intact. There is no evidence of mass. There is no mass effect or midline shift. Cerebral ventricles: No ventriculomegaly. Paranasal sinuses: There is a small unchanged left sphenoid sinus retention cyst or polyp. Mastoid air cells: Visualized mastoid air cells are well aerated. Vasculature: Normal is enhancement is seen in the major cerebral arterial and venous intracranial structures. Bones/joints: Unremarkable. No acute fracture. Soft tissues: Unremarkable. Other findings: There is no evidence of abnormal contrast enhancement. There is no evidence of vasogenic edema. IMPRESSION: No evidence of acute intracranial abnormality. No acute hemorrhage. No evidence of acute infarct or mass. Electronically signed by: Amirah Hemphill On 04/08/2021 10:11:19 AM
== END ==
LOC: M RAD 09:17
PROVIDERS: ATTEND Internal Medicine
DX: C50.212 Malignant neoplasm of upper-inner quadrant of left female breast (principal)
CPT/HCPCS: 70470; Q9967

== ENCOUNTER → 2021-04-13 | Outpatient (CLI) | payer OTHER ==
[~2021-04-13] MED LIST changes: -ISOVUE-370 76% 100ML VIAL As Ordered ONE
--- NOTE | 2021-04-14 15:59 | ECHO ---
ECHOCARDIOGRAM DATE OF PROCEDURE: 04/13/2021 Age: 50 Gender: Female Height: 63 inches Weight: 135 pounds Body Surface Area: 1.64 m2 PATIENT LOCATION: Outpatient. REFERRING PROVIDER: Salvador Barroso. INDICATION: Malignant neoplasm potentially cardiotoxic chemotherapy. MEASUREMENTS: 2D Measurements: RV 3.4 cm LV 4.3 cm Septum 0.8 cm Posterior wall 0.8 cm Aortic Root 2.9 cm LA 3.6 cm LVEF 65% Doppler Measurements: AV 1.3 m/s LVOT 1.2 m/s LVOT diameter 1.6 cm MV-E 77, A 63, EA ratio 1.2 Early mitral deceleration time 243 msec E prime medial 9.9, A prime medial 8.5, E prime lateral 13.3 Average E/E prime ratio 6.6/PCWP 10 mmHg PV - 0.8 m/s Pulmonary artery acceleration time 137 msec RVSP 20-25 mmHg IVC - 1.2 cm COMMENTS: Normal sinus rhythm without intraventricular conduction disturbance. M-mode and 2-dimensional echocardiography was performed with pulse, continuous wave, color flow, and tissue Doppler studies. Normal left ventricular size, wall thickness, and wall motion. Normal left atrial size and Doppler assessment of LV diastolic function and estimated mean left atrial pressure. Normal right heart chamber sizes and motion and estimated pulmonary arterial pressure. Somewhat reduced IVC size with prompt collapse suggestive of a somewhat low central venous pressure. Normal aortic dimensions. Normal appearing aortic valve and function. Normal appearing mitral valve with trace insufficiency (physiologic). Normal appearing tricuspid valve with mild insufficiency (physiologic). No apparent intracardiac mass or pericardial effusion. MTDD
== END ==
LOC: M CARPUL 11:44
PROVIDERS: ATTEND Internal Medicine
DX: C50.212 Malignant neoplasm of upper-inner quadrant of left female breast (principal); R63.4 Abnormal weight loss

== ENCOUNTER → 2021-04-20 | Outpatient (CLI) | payer OTHER ==
--- NOTE | 2021-04-21 05:06 | REP ---
INDICATION: OTHER NONSPECIFIC ABNORMAL FINDING OF LUNG FIELD COMPARISON: 11/15/2020 TECHNIQUE: PA and lateral. FINDINGS: Mediastinum and cardiac silhouette are normal. [id number] identified with tip in the SVC. Bilateral mammoplasty. Lung contreras are clear. No consolidation, effusion, or pneumothorax. Skeletal structures are intact.. IMPRESSION: No acute cardiopulmonary process appreciated. <Electronically signed by Arnaud Dlecid > 04/21/21 [id number]
== END ==
LOC: M ADAMS 11:39
PROVIDERS: ATTEND Internal Medicine Pulmonary Disease
DX: R91.8 Other nonspecific abnormal finding of lung field (principal)

== ENCOUNTER → 2021-04-21 | Outpatient (CLI) | payer SELFPAY | LOC: M LABSMTC 09:37 | PROVIDERS: ATTEND Pediatrics | DX: Z20.822 Contact with and (suspected) exposure to COVID-19 (principal) ==

== ENCOUNTER → 2021-04-25 | Outpatient (CLI) | payer SELFPAY | LOC: M LABSMTC 13:51 | PROVIDERS: ATTEND Pediatrics | DX: Z20.822 Contact with and (suspected) exposure to COVID-19 (principal) ==

== ENCOUNTER → 2021-05-11 | Outpatient (CLI) | payer OTHER ==
[~2021-05-11] MED LIST changes: +ISOVUE-370 76% 100ML VIAL As Ordered ONE
--- NOTE | 2021-05-15 12:49 | REP ---
INDICATION: LOCALIZED ENLARGED LYMPH NODES COMPARISON: 10/15/2020 TECHNIQUE: Axial contrast enhanced images from the thoracic inlet to the upper abdomen with coronal and sagittal reformations using 75 ml Isovue 370 intravenous contrast material. [address] CT examination was performed using the following dose reduction techniques: Automated exposure control, adjustment of mA and/or kv according to the patient's size, and use of iterative reconstruction technique. FINDINGS: Right hilar lymph nodes measuring up to approximately 19 mm diameter and peripheral nodules with central calcification along the posterior aspect of the right lower lobe measuring up to approximately 15 mm remains stable and may reflect prior granulomatous disease. Minimal linear scarring in the bilateral lower lobes is also noted and stable. No new acute consolidation, suspicious nodule or mass. No effusion. No pneumothorax. Tracheobronchial tree is patent. No new adenopathy. Further evaluation of the mediastinum demonstrates normal stable thoracic aorta, pulmonary vasculature, and heart/pericardium. Musculoskeletal structures are intact. Bilateral mammoplasty noted. IMPRESSION: 1. Right hilar lymph nodes and right lower lobe subpleural nodules with central calcification and small amounts of intracavitary air remain relatively stable. 2. No new acute mediastinal or pleuroparenchymal process appreciated. <Electronically signed by Arnaud Delcid > 05/15/21 [id number]
== END ==
LOC: M RAD 14:19
PROVIDERS: ATTEND Internal Medicine Pulmonary Disease
DX: R59.9 Enlarged lymph nodes, unspecified (principal); R91.8 Other nonspecific abnormal finding of lung field
CPT/HCPCS: 71260; Q9967

== ENCOUNTER → 2021-05-23 | Outpatient (REF) | payer OTHER ==
[~2021-05-23] MED LIST changes: -ISOVUE-370 76% 100ML VIAL As Ordered ONE
[2021-05-23 21:53] LABS: APPEARANCE, URINE CLEAR (CLEAR); BACTERIA, URINE AUTO NEGATIVE (NEGATIVE); BILIRUBIN, URINE AUTO NEGATIVE (NEGATIVE); BLOOD, URINE BLOOD 2+ (NEGATIVE); COLOR, URINE YELLOW (YELLOW); GLUCOSE, URINE (UA) AUTO NEGATIVE (NEGATIVE); KETONE, URINE AUTO NEGATIVE (NEGATIVE); LEUKOCYTE ESTERASE, URINE AUTO NEGATIVE (NEGATIVE); NITRITE, URINE AUTO NEGATIVE (NEGATIVE); PROTEIN, URINE AUTO NEGATIVE (NEGATIVE); RBC, URINE AUTO 2 /HPF (0-3); SPECIFIC GRAVITY URINE AUTO 1.011 (1.002-1.035); SQUAMOUS EPITHELIAL CELL UR AU 0 /HPF (0-6); UROBILINOGEN, URINE AUTO 0.2 mg/dL (0.0-2.0); WBC, URINE AUTO 0 /HPF (0-3)
== END ==
LOC: M LAB REF 21:29
PROVIDERS: ATTEND Physician Assistant Medical
DX: N39.0 Urinary tract infection, site not specified (principal)

== ENCOUNTER → 2021-07-14 | Outpatient (REF) | payer OTHER ==
[2021-07-14 15:00] LABS: BASO % 0.4 % (0.0-1.0); EOS # 0.1 10^3/uL (0.0-0.5); EOS % 1.5 % (0.0-3.0); HEMATOCRIT 42.3 % (36.0-47.0); HEMOGLOBIN 14.1 g/dl (12.0-15.5); MEAN CORPUSCULAR HEMOGLOBIN 31.4 pg (27.0-33.0); MEAN CORPUSCULAR HGB CONC 33.3 g/dl (32.0-36.5); MEAN CORPUSCULAR VOLUME 94.2 fl (80.0-96.0); MONO # 0.7 10^3/uL (0.0-0.8); MONO % 6.9 % (2.0-8.0); NEUTROPHILS # 6.6 10^3/uL (1.5-8.5); NEUTROPHILS % 69.8 % (36.0-66.0); PLATELET COUNT, AUTOMATED 250 10^3/uL (150-450); RED BLOOD COUNT 4.49 10^6/uL (4.00-5.40); WHITE BLOOD COUNT 9.4 10^3/uL (4.0-10.0)
[2021-07-14 15:30] LABS: HEMOGLOBIN A1c 5.3 %
[2021-07-14 16:00] LABS: ALBUMIN 3.9 GM/DL (3.2-5.2); ALT/SGPT 30 U/L (12-78); BILIRUBIN,TOTAL 0.4 MG/DL (0.2-1.0); BLOOD UREA NITROGEN 13 MG/DL (7-18); CARBON DIOXIDE LEVEL 27 MEQ/L (21-32); CHLORIDE LEVEL 106 MEQ/L (98-107); CHOLESTEROL LEVEL 204 MG/DL (<200); CREATININE FOR GFR 0.91 MG/DL (0.55-1.30); GLOMERULAR FILTRATION RATE > 60.0 (>58); GLUCOSE, FASTING 93 MG/DL (70-100); HDL CHOLESTEROL 51 MG/DL (>40); LDL CHOLESTEROL 116 MG/DL (<100); NON-HDL-C 153 MG/DL; POTASSIUM SERUM 4.2 MEQ/L (3.5-5.1); SODIUM LEVEL 138 MEQ/L (136-145); TOTAL PROTEIN 7.8 GM/DL (6.4-8.2); TRIGLYCERIDES LEVEL 187 MG/DL (<150)
== END ==
LOC: M LABDRWAD 14:36
PROVIDERS: ATTEND Nurse Practitioner Family
DX: R73.9 Hyperglycemia, unspecified (principal); E78.00 Pure hypercholesterolemia, unspecified; Z79.899 Other long term (current) drug therapy; E03.9 Hypothyroidism, unspecified

== ENCOUNTER → 2021-07-15 | Outpatient (CLI) | payer OTHER ==
--- NOTE | 2021-07-16 12:43 | ECHO ---
ECHOCARDIOGRAM DATE OF PROCEDURE: 07/15/2021 Age: Gender: Height: 160 cm Weight: 64 kg REFERRING PHYSICIAN: Dr. Salvador Barroso INDICATION: Chemotherapy. MEASUREMENTS: IVS 0.9 LV 4.3 LVPW 0.8 LA 2.9 Aorta 2.9 IVC 1.3 Mitral E wave velocity 56 A wave 60 E prime septal 7.6 E prime lateral 9.5 FINDINGS: The study is of acceptable technical quality. Underlying sinus rhythm. Left ventricle has normal size and normal systolic function. Estimated LVEF 60%-65%. Right ventricle also has normal size and systolic function. Both atria appear normal. Aortic, mitral, and tricuspid valves appear normal. Pulmonic valve was not well seen. No pericardial effusion is present. Inferior vena cava is normal size and appropriately collapses with inspiration, indicative of normal central venous pressure. Aortic root and aortic arch appear normal. Abdominal aorta was relatively poorly visualized but also appears grossly normal. Doppler interrogation reveals competent aortic valve. There is trace mitral and trace tricuspid insufficiency. Calculated pulmonary artery pressure is within normal limits. Mitral inflow pattern on tissue Doppler imaging, mitral annulus revealed grade 1 diastolic dysfunction. CONCLUSION: 1. Study is of acceptable technical quality. Underlying sinus rhythm. 2. Normal LV size with normal LV systolic function. Grade 1 diastolic dysfunction. 3. No significant valvular disease. 4. Normal central venous pressure and normal pulmonary artery pressure.
== END ==
LOC: M CARPUL 09:26
PROVIDERS: ATTEND Internal Medicine
DX: C50.212 Malignant neoplasm of upper-inner quadrant of left female breast (principal); R63.4 Abnormal weight loss

== ENCOUNTER 2021-07-21 18:35 | Emergency (ER) | payer OTHER ==
[~2021-07-21] VITALS: Ht 165.1 cm; Wt 64.5 kg
[2021-07-21] MEDS ORDERED: PROC10TA4 (18:57)
[2021-07-21] MEDS ORDERED: TAMO20TA8 (18:57)
[2021-07-21] MEDS ORDERED: ALBU8.5H (18:57)
[2021-07-21] MEDS ORDERED: LEVO150T7 (18:57)
[2021-07-21] MEDS ORDERED: BUDE10.2 (18:57)
[2021-07-21] MEDS ORDERED: SENN-80 PO (18:57)
[2021-07-21] MEDS ORDERED: POTA10CA32 (18:57)
[2021-07-21] MEDS ORDERED: MUCI600T31 (18:57)
[2021-07-21] MEDS ORDERED: MOME0.1C3 (18:57)
[2021-07-21] MEDS ORDERED: ONDA8TAB8 (18:57)
--- NOTE | 2021-07-21 19:14 | ECGEPIP ---
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
--- NOTE | 2021-07-21 19:29 | REP ---
INDICATION: CHEST PAIN. COMPARISON: 04/20/2021 TECHNIQUE: Portable FINDINGS: The technique utilized in obtaining the radiograph has magnified the cardiac silhouette and accentuated the interstitial markings. The cardiomediastinal silhouette is unchanged. The MediPort device is unchanged. Lung contreras are unchanged. There are no new abnormal opacities. The pleural angles are again seen to be sharp. The osseous structures are unchanged. IMPRESSION: No significant change other than technique <Electronically signed by Otto Voss > 07/21/211924
[2021-07-21 19:48] LABS: ALBUMIN 3.7 GM/DL (3.2-5.2); ALT/SGPT 21 U/L (12-78); BILIRUBIN,DIRECT < 0.1 MG/DL (0.0-0.2); BILIRUBIN,TOTAL 0.2 MG/DL (0.2-1.0); BLOOD UREA NITROGEN 12 MG/DL (7-18); CALCIUM LEVEL 9.2 MG/DL (8.5-10.1); CARBON DIOXIDE LEVEL 27 MEQ/L (21-32); CHLORIDE LEVEL 108 MEQ/L (98-107); CREATININE FOR GFR 0.79 MG/DL (0.55-1.30); GLOMERULAR FILTRATION RATE > 60.0 (>58); GLUCOSE, FASTING 102 MG/DL (70-100); LIPASE 326 U/L (73-393); NT-PRO BNP 36 PG/ML (<125); POTASSIUM SERUM 4.1 MEQ/L (3.5-5.1); SODIUM LEVEL 140 MEQ/L (136-145); TOTAL PROTEIN 7.3 GM/DL (6.4-8.2)
[2021-07-21 20:47] LABS: BASO % 0.3 % (0.0-1.0); EOS # 0.2 10^3/uL (0.0-0.5); EOS % 1.5 % (0.0-3.0); HEMATOCRIT 38.9 % (36.0-47.0); HEMOGLOBIN 13.3 g/dl (12.0-15.5); LYMPH # 3.6 10^3/uL (1.5-5.0); LYMPH % 34.8 % (24.0-44.0); MEAN CORPUSCULAR HEMOGLOBIN 31.7 pg (27.0-33.0); MEAN CORPUSCULAR HGB CONC 34.2 g/dl (32.0-36.5); MEAN CORPUSCULAR VOLUME 92.6 fl (80.0-96.0); MONO # 0.6 10^3/uL (0.0-0.8); MONO % 5.6 % (2.0-8.0); NEUTROPHILS # 5.9 10^3/uL (1.5-8.5); NEUTROPHILS % 57.6 % (36.0-66.0); PLATELET COUNT, AUTOMATED 291 10^3/uL (150-450); WHITE BLOOD COUNT 10.3 10^3/uL (4.0-10.0)
[2021-07-21] MEDS ORDERED: ISOVUE-370 76% 100ML VIAL As Ordered ONE (22:24)
--- NOTE | 2021-07-22 00:43 | REPVR ---
PROCEDURE INFORMATION: Exam: CTA Chest With Contrast Exam date and time: 07/21/2021 10:42 PM Age: 50 years old Clinical indication: Chest wall pain; Additional info: Cancer, chest pain TECHNIQUE: Imaging protocol: Computed tomographic angiography of the chest with contrast. 3D rendering (Not supervised by radiologist): MIP and/or 3D reconstructed images were created by the technologist. Radiation optimization: All CT scans at this facility use at least one of these dose optimization techniques: automated exposure control; mA and/or kV adjustment per patient size (includes targeted exams where dose is matched to clinical indication); or iterative reconstruction. Contrast material: ISOVUE 370; Contrast volume: 75 ml; Contrast route: INTRAVENOUS (IV); COMPARISON: 1. CT Chest with contrast 2021-05-11 14:[address] Chest with contrast 2020-10-15 08:50 FINDINGS: Pulmonary arteries: No filling defects in the pulmonary arteries to suggest pulmonary emboli. Aorta: Unremarkable. No aortic aneurysm. No aortic dissection. Lungs: Right lower lobe cavitary lesion with small satellite nodules is not significantly changed measuring 1.7 cm. Right lower lobe superior segment pleural based 12 mm nodule. Pleural spaces: Unremarkable. No pneumothorax. No pleural effusion. Heart: Unremarkable. No cardiomegaly. No pericardial effusion. Lymph nodes: Right hilar adenopathy with right infrahilar 2 x 1.6 cm lymph node is not significantly changed. Bones/joints: No lytic or blastic destructive bony lesions. Soft tissues: Breast implants. Mastectomy. IMPRESSION: 1. No acute abnormality. Unchanged metastatic disease from 05/11/2021. 2. No filling defects in the pulmonary arteries to suggest pulmonary emboli. Electronically signed by: Elías Mabry On 07/22/2021 00:42:46 AM
[2021-07-22 00:45] VITALS: BP 135/82
== END 2021-07-22 01:00 | disposition home or self-care (01) ==
LOC: M ED 18:35
DX: R07.89 Other chest pain (principal); R06.02 Shortness of breath; E03.9 Hypothyroidism, unspecified; Z85.3 Personal history of malignant neoplasm of breast; Z92.21 Personal history of antineoplastic chemotherapy; Z90.10 Acquired absence of unspecified breast and nipple; Z87.891 Personal history of nicotine dependence; Z91.013 Allergy to seafood; Z91.040 Latex allergy status
CPT/HCPCS: 71045; 71275; 80048; 80076; 83690; 83880; 85025; 93005; 93041; 94760; 99285; Q9967

== ENCOUNTER → 2021-08-22 | Outpatient (REF) | payer OTHER ==
[~2021-08-22] MED LIST changes: +ALBU8.5H; +BUDE10.2; +LEVO150T7; +MOME0.1C3; +MUCI600T31; +ONDA8TAB8; +POTA10CA32; +PROC10TA4; +SENN-80 PO; +TAMO20TA8
== END ==
LOC: M WUC 20:16
PROVIDERS: ATTEND Physician Assistant
DX: J44.1 Chronic obstructive pulmonary disease with (acute) exacerbation (principal)

== ENCOUNTER → 2021-08-22 | Outpatient (REF) | payer OTHER ==
[2021-08-24 13:08] LABS: ANTINUCLEAR ANTIBODIES DIRECT Negative (Negative)
== END ==
LOC: M LABDRWAD 16:15
PROVIDERS: ATTEND Physician Assistant
DX: L27.0 Generalized skin eruption due to drugs and medicaments taken internally (principal)

== ENCOUNTER → 2021-11-28 | Outpatient (REF) | payer OTHER ==
[~2021-11-28] MED LIST changes: -LEVO500T3 PO; +LEVO500T4 PO; +OMEP-173 PO; -OMEP-218 PO; -PROC10TA4; +PROC10TA5
[2021-11-28 12:40] LABS: BASO % 0.3 % (0.0-1.0); EOS # 0.3 10^3/uL (0.0-0.5); EOS % 2.4 % (0.0-3.0); HEMATOCRIT 40.4 % (36.0-47.0); HEMOGLOBIN 12.9 g/dl (12.0-15.5); LYMPH # 4.8 10^3/uL (1.5-5.0); LYMPH % 40.2 % (24.0-44.0); MEAN CORPUSCULAR HEMOGLOBIN 30.5 pg (27.0-33.0); MEAN CORPUSCULAR HGB CONC 31.9 g/dl (32.0-36.5); MEAN CORPUSCULAR VOLUME 95.5 fl (80.0-96.0); MONO # 0.8 10^3/uL (0.0-0.8); MONO % 6.6 % (2.0-8.0); NEUTROPHILS % 50.1 % (36.0-66.0); PLATELET COUNT, AUTOMATED 357 10^3/uL (150-450); RED BLOOD COUNT 4.23 10^6/uL (4.00-5.40)
[2021-11-28 13:15] LABS: ALBUMIN 3.4 GM/DL (3.2-5.2); ALT/SGPT 18 U/L (12-78); BILIRUBIN,TOTAL 0.3 MG/DL (0.2-1.0); BLOOD UREA NITROGEN 15 MG/DL (7-18); CALCIUM LEVEL 8.8 MG/DL (8.5-10.1); CARBON DIOXIDE LEVEL 30 MEQ/L (21-32); CHLORIDE LEVEL 105 MEQ/L (98-107); CHOLESTEROL LEVEL 160 MG/DL (<200); CHOLESTEROL RISK RATIO 3.076 (<5); CREATININE FOR GFR 0.87 MG/DL (0.55-1.30); GLOMERULAR FILTRATION RATE > 60.0 (>58); GLUCOSE, FASTING 88 MG/DL (70-100); HDL CHOLESTEROL 52 MG/DL (>40); LDL CHOLESTEROL 79 MG/DL (<100); NON-HDL-C 108 MG/DL; SODIUM LEVEL 139 MEQ/L (136-145); TOTAL PROTEIN 6.5 GM/DL (6.4-8.2); TRIGLYCERIDES LEVEL 143 MG/DL (<150)
[2021-11-28 13:16] LABS: HEMOGLOBIN A1c 5.4 %
== END ==
LOC: M LABDRWAD 12:18
PROVIDERS: ATTEND Nurse Practitioner Family
DX: Z00.01 Encounter for general adult medical examination with abnormal findings (principal); Z13.29 Encounter for screening for other suspected endocrine disorder; Z79.899 Other long term (current) drug therapy; E78.00 Pure hypercholesterolemia, unspecified; E03.9 Hypothyroidism, unspecified

== ENCOUNTER → 2021-12-16 | Outpatient (CLI) | payer OTHER ==
[~2021-12-16] MED LIST changes: +ISOVUE-370 76% 100ML VIAL As Ordered ONE
== END ==
LOC: M RAD 08:33
PROVIDERS: ATTEND Internal Medicine
DX: C50.212 Malignant neoplasm of upper-inner quadrant of left female breast (principal); R63.4 Abnormal weight loss
CPT/HCPCS: 71260; Q9967

== ENCOUNTER → 2022-02-27 | Outpatient (REF) | payer OTHER ==
[~2022-02-27] MED LIST changes: -ISOVUE-370 76% 100ML VIAL As Ordered ONE
[2022-02-27 13:09] LABS: BASO % 0.3 % (0.0-1.0); EOS # 0.1 10^3/uL (0.0-0.5); EOS % 1.7 % (0.0-3.0); HEMATOCRIT 42.1 % (36.0-47.0); HEMOGLOBIN 13.6 g/dl (12.0-15.5); MEAN CORPUSCULAR HEMOGLOBIN 30.8 pg (27.0-33.0); MEAN CORPUSCULAR HGB CONC 32.3 g/dl (32.0-36.5); MEAN CORPUSCULAR VOLUME 95.2 fl (80.0-96.0); MONO # 0.6 10^3/uL (0.0-0.8); MONO % 8.2 % (2.0-8.0); NEUTROPHILS # 4.7 10^3/uL (1.5-8.5); NEUTROPHILS % 62.5 % (36.0-66.0); PLATELET COUNT, AUTOMATED 237 10^3/uL (150-450); RED BLOOD COUNT 4.42 10^6/uL (4.00-5.40); WHITE BLOOD COUNT 7.5 10^3/uL (4.0-10.0)
[2022-02-27 13:31] LABS: HEMOGLOBIN A1c 5.5 %
[2022-02-27 13:54] LABS: ALBUMIN 3.8 GM/DL (3.2-5.2); ALT/SGPT 23 U/L (12-78); BILIRUBIN,TOTAL 0.3 MG/DL (0.2-1.0); BLOOD UREA NITROGEN 12 MG/DL (7-18); CALCIUM LEVEL 8.3 MG/DL (8.5-10.1); CARBON DIOXIDE LEVEL 28 MEQ/L (21-32); CHLORIDE LEVEL 109 MEQ/L (98-107); CHOLESTEROL LEVEL 169 MG/DL (<200); CHOLESTEROL RISK RATIO 3.188 (<5); GLOMERULAR FILTRATION RATE > 60.0 (>58); GLUCOSE, FASTING 85 MG/DL (70-100); HDL CHOLESTEROL 53 MG/DL (>40); LDL CHOLESTEROL 66 MG/DL (<100); NON-HDL-C 116 MG/DL; POTASSIUM SERUM 4.7 MEQ/L (3.5-5.1); SODIUM LEVEL 140 MEQ/L (136-145); THYROID STIMULATING HORMONE 0.487 uIU/ML (0.358-3.740); TRIGLYCERIDES LEVEL 250 MG/DL (<150)
== END ==
LOC: M LABDRWAD 12:47
PROVIDERS: ATTEND Nurse Practitioner Family
DX: Z00.01 Encounter for general adult medical examination with abnormal findings (principal); Z13.29 Encounter for screening for other suspected endocrine disorder; Z79.899 Other long term (current) drug therapy; E78.00 Pure hypercholesterolemia, unspecified; E03.9 Hypothyroidism, unspecified

== ENCOUNTER → 2022-03-10 | Outpatient (CLI) | payer OTHER | LOC: M ADAMS 15:57 | PROVIDERS: ATTEND Internal Medicine Pulmonary Disease | DX: R91.8 Other nonspecific abnormal finding of lung field (principal); Z98.86 Personal history of breast implant removal; R05.9 Cough, unspecified ==

== ENCOUNTER → 2022-05-10 | Outpatient (CLI) | payer OTHER ==
[~2022-05-10] MED LIST changes: +GASTROGRAFIN SOLUTION 30ML (Q9963) As Ordered ONE; +ISOVUE-370 76% 100ML VIAL As Ordered ONE
[2022-05-10 12:44] LABS: BASO % 0.4 % (0.0-1.0); EOS # 0.1 10^3/uL (0.0-0.5); EOS % 0.5 % (0.0-3.0); HEMATOCRIT 39.1 % (36.0-47.0); HEMOGLOBIN 13.1 g/dl (12.0-15.5); LYMPH # 2.5 10^3/uL (1.5-5.0); LYMPH % 23.8 % (24.0-44.0); MEAN CORPUSCULAR HEMOGLOBIN 31.6 pg (27.0-33.0); MEAN CORPUSCULAR HGB CONC 33.5 g/dl (32.0-36.5); MEAN CORPUSCULAR VOLUME 94.2 fl (80.0-96.0); MONO # 0.6 10^3/uL (0.0-0.8); MONO % 5.1 % (2.0-8.0); NEUTROPHILS # 7.5 10^3/uL (1.5-8.5); NEUTROPHILS % 69.8 % (36.0-66.0); PLATELET COUNT, AUTOMATED 306 10^3/uL (150-450); RED BLOOD COUNT 4.15 10^6/uL (4.00-5.40); WHITE BLOOD COUNT 10.7 10^3/uL (4.0-10.0)
[2022-05-10 13:16] LABS: ALBUMIN 3.8 GM/DL (3.2-5.2); ALT/SGPT 19 U/L (12-78); BILIRUBIN,TOTAL 0.3 MG/DL (0.2-1.0); BLOOD UREA NITROGEN 9 MG/DL (7-18); CALCIUM LEVEL 9.2 MG/DL (8.5-10.1); CARBON DIOXIDE LEVEL 25 MEQ/L (21-32); CHLORIDE LEVEL 111 MEQ/L (98-107); CREATININE FOR GFR 0.76 MG/DL (0.55-1.30); GLOMERULAR FILTRATION RATE > 60.0 (>58); GLUCOSE, FASTING 95 MG/DL (70-100); POTASSIUM SERUM 4.2 MEQ/L (3.5-5.1); SODIUM LEVEL 141 MEQ/L (136-145)
[2022-05-10 14:07] LABS: CA15-3 ANTIGEN 14.5 U/ML (<32.4)
== END ==
LOC: M RAD 11:56
PROVIDERS: ATTEND Internal Medicine
DX: K63.9 Disease of intestine, unspecified (principal); Z85.3 Personal history of malignant neoplasm of breast
CPT/HCPCS: 36415; 71260; 74177; 80053; 82378; 85025; 86300; Q9963; Q9967

== ENCOUNTER → 2022-05-30 | Outpatient (CLI) | payer OTHER ==
[~2022-05-30] MED LIST changes: -GASTROGRAFIN SOLUTION 30ML (Q9963) As Ordered ONE; -ISOVUE-370 76% 100ML VIAL As Ordered ONE
[2022-05-30 13:37] LABS: BASO % 0.3 % (0.0-1.0); EOS # 0.1 10^3/uL (0.0-0.5); EOS % 1.4 % (0.0-3.0); HEMATOCRIT 41.3 % (36.0-47.0); HEMOGLOBIN 13.6 g/dl (12.0-15.5); LYMPH # 2.2 10^3/uL (1.5-5.0); LYMPH % 24.4 % (24.0-44.0); MEAN CORPUSCULAR HEMOGLOBIN 31.6 pg (27.0-33.0); MEAN CORPUSCULAR HGB CONC 32.9 g/dl (32.0-36.5); MEAN CORPUSCULAR VOLUME 95.8 fl (80.0-96.0); MONO # 0.6 10^3/uL (0.0-0.8); MONO % 6.7 % (2.0-8.0); NEUTROPHILS % 66.9 % (36.0-66.0); PLATELET COUNT, AUTOMATED 310 10^3/uL (150-450); RED BLOOD COUNT 4.31 10^6/uL (4.00-5.40)
[2022-05-30 13:57] LABS: ALBUMIN 3.9 GM/DL (3.2-5.2); ALT/SGPT 16 U/L (12-78); BILIRUBIN,TOTAL 0.4 MG/DL (0.2-1.0); BLOOD UREA NITROGEN 13 MG/DL (7-18); CALCIUM LEVEL 9.1 MG/DL (8.5-10.1); CARBON DIOXIDE LEVEL 27 MEQ/L (21-32); CHLORIDE LEVEL 110 MEQ/L (98-107); CHOLESTEROL LEVEL 185 MG/DL (<200); CHOLESTEROL RISK RATIO 3.189 (<5); CREATININE FOR GFR 0.87 MG/DL (0.55-1.30); GLOMERULAR FILTRATION RATE > 60.0 (>58); GLUCOSE, FASTING 90 MG/DL (70-100); HDL CHOLESTEROL 58 MG/DL (>40); HEMOGLOBIN A1c 5.2 %; LDL CHOLESTEROL 100 MG/DL (<100); NON-HDL-C 127 MG/DL; POTASSIUM SERUM 4.8 MEQ/L (3.5-5.1); SODIUM LEVEL 141 MEQ/L (136-145); THYROID STIMULATING HORMONE 0.158 uIU/ML (0.358-3.740); TOTAL PROTEIN 7.1 GM/DL (6.4-8.2); TRIGLYCERIDES LEVEL 135 MG/DL (<150)
== END ==
LOC: M ADAMS 08:17
PROVIDERS: ATTEND Nurse Practitioner Family
DX: Z00.01 Encounter for general adult medical examination with abnormal findings (principal); Z13.1 Encounter for screening for diabetes mellitus; Z79.899 Other long term (current) drug therapy; E78.5 Hyperlipidemia, unspecified; E03.9 Hypothyroidism, unspecified

== ENCOUNTER → 2022-06-15 | Outpatient (CLI) | payer OTHER ==
[~2022-06-15] MED LIST changes: +LEVO1TAB39 PO; -LEVO500T4 PO
[2022-06-15 18:15] LABS: CA 125 6.5 U/ML (<30.2); CA19-9 TUMOR MARKER,CARBOHYDRA < 1.2 U/ML (<35.0)
== END ==
LOC: M ADAMS 14:06
PROVIDERS: ATTEND Obstetrics & Gynecology
DX: R19.00 Intra-abdominal and pelvic swelling, mass and lump, unspecified site (principal)

== ENCOUNTER → 2022-06-15 | Outpatient (CLI) | payer OTHER | LOC: M WHC 14:53 | PROVIDERS: ATTEND Obstetrics & Gynecology | DX: N83.292 Other ovarian cyst, left side (principal) ==

== ENCOUNTER → 2022-06-28 | Outpatient (CLI) | payer OTHER ==
[2022-06-29 14:11] LABS: ESTRADIOL 139.4 PG/ML; LUTEINIZING HORMONE 9.7 mIU/mL
== END ==
LOC: M ADAMS 15:47
PROVIDERS: ATTEND Internal Medicine
DX: C50.212 Malignant neoplasm of upper-inner quadrant of left female breast (principal)

== ENCOUNTER → 2022-07-21 | Outpatient (CLI) | payer OTHER | LOC: M WHC 14:55 | PROVIDERS: ATTEND Obstetrics & Gynecology | DX: N83.202 Unspecified ovarian cyst, left side (principal) ==

== ENCOUNTER → 2022-08-06 | Outpatient (CLI) | payer OTHER ==
[~2022-08-06] MED LIST changes: -ALBU8.5H; +ALBU8.5H INH; +ATEN25TA PO; -BUDE10.2; +BUDE10.2 INH; -LEVO150T7; +LEVO150T7 PO; +MONT10TA97 PO; -MUCI600T31; +MUCI600T31 PO; -ONDA8TAB8; +ONDA8TAB8 PO; -POTA10CA32; +POTA10CA32 PO; -PROC10TA5; +PROC10TA5 PO; -TAMO20TA8; +TAMO20TA8 PO
== END ==
LOC: M LABSMTC 10:06
PROVIDERS: ATTEND Anesthesiology
DX: Z01.818 Encounter for other preprocedural examination (principal); Z20.822 Contact with and (suspected) exposure to COVID-19

== ENCOUNTER → 2022-08-07 | Outpatient (CLI) | payer OTHER ==
[2022-08-07 13:33] LABS: PLATELET COUNT, AUTOMATED 353 10^3/uL (150-450)
[2022-08-07 13:44] LABS: PROTHROMBIN TIME 13.6 SECONDS (12.7-14.5)
[2022-08-07 13:45] LABS: PARTIAL THROMBOPLASTIN TIME 31.8 SECONDS (25.9-37.0)
== END ==
LOC: M PLALAB 12:02
PROVIDERS: ATTEND Internal Medicine Pulmonary Disease
DX: Z01.812 Encounter for preprocedural laboratory examination (principal)

== ENCOUNTER 2022-08-09 07:02 | Day surgery (SDC) | payer OTHER ==
[~2022-08-09] VITALS: Ht 160 cm; Wt 66.2 kg
[2022-08-09] MEDS ORDERED: LR 1,000 ML IV SCH ×2 (07:15→10:00)
[2022-08-09] MEDS ORDERED: ACET-897 PO (07:23)
[2022-08-09] MEDS ORDERED: MIDAZOLAM INJ 2MG/2ML VIAL (J2250 PER 1MG) As Ordered ONE (07:58)
[2022-08-09] MEDS ORDERED: LIDOCAINE 2% 100MG/5ML SDV (FOR ANES.) As Ordered ONE (07:58)
[2022-08-09] MEDS ORDERED: propofoL 200 MG/20 ML VIAL As Ordered ONE (07:59)
[2022-08-09] MEDS ORDERED: fentaNYL 100 MCG/2 ML INJECTION As Ordered ONE (08:01)
[2022-08-09] MEDS ORDERED: ROCURONIUM BROMIDE 50 MG/5 ML VIAL As Ordered ONE (08:02)
[2022-08-09] MEDS ORDERED: dexameTHASONE 4 MG/ML 1ML VIAL (J1100 PER 1MG) As Ordered ONE (08:03)
[2022-08-09] MEDS ORDERED: SCOPOLAMINE 1MG TRANSDERMAL PATCH TOP ONE (08:10)
[2022-08-09] MEDS ORDERED: THROMBIN SOLN 5,000 UNITS VIAL As Ordered ONE (08:25)
[2022-08-09] MEDS ORDERED: EPINEPHrine 1MG/10ML SYRINGE 1.5IN As Ordered ONE (08:26)
[2022-08-09] MEDS ORDERED: CETACAINE SPRAY 5GM As Ordered ONE (08:26)
[2022-08-09] MEDS ORDERED: ONDANSETRON 4MG 2ML VIAL As Ordered ONE (08:56)
[2022-08-09] MEDS ORDERED: SUGAMMADEX SODIUM 500 MG/5 ML VIAL (BRIDION) As Ordered ONE (08:56)
[2022-08-09] MEDS ORDERED: fentaNYL 100 MCG/2 ML INJECTION IV PRN (10:00)
[2022-08-09] MEDS ORDERED: ALBUTEROL SULFATE 2.5 MG/0.5 ML INH NEB SOLN INH ONE (10:00)
[2022-08-09] MEDS ORDERED: ONDANSETRON 4MG 2ML VIAL IV PRN (10:00)
[2022-08-09] MEDS ORDERED: oxyCODONE 5MG TAB PO PRN (10:00)
[2022-08-09 10:16] VITALS: BP 106/73
== END 2022-08-09 10:35 | disposition home or self-care (01) ==
LOC: M SDC 07:02
PROVIDERS: ATTEND Internal Medicine Pulmonary Disease
DX: R59.0 Localized enlarged lymph nodes (principal); R91.8 Other nonspecific abnormal finding of lung field; E89.0 Postprocedural hypothyroidism; K21.9 Gastro-esophageal reflux disease without esophagitis; J45.909 Unspecified asthma, uncomplicated; I34.0 Nonrheumatic mitral (valve) insufficiency; Z90.13 Acquired absence of bilateral breasts and nipples; Z85.3 Personal history of malignant neoplasm of breast; N65.1 Disproportion of reconstructed breast; J31.0 Chronic rhinitis; Z87.891 Personal history of nicotine dependence; D49.0 Neoplasm of unspecified behavior of digestive system; Z79.899 Other long term (current) drug therapy; Z79.890 Hormone replacement therapy; Z79.51 Long term (current) use of inhaled steroids; Z91.013 Allergy to seafood; Z91.040 Latex allergy status
CPT/HCPCS: 31629; 31652; 71045; 87070; 87102; 87116; 87205; 87206; 88173; 88305; J1100; J2250; J2405; J3010

== ENCOUNTER → 2022-08-30 | Outpatient (CLI) | payer OTHER ==
[~2022-08-30] MED LIST changes: +ACET-897 PO
[2022-08-30 14:21] LABS: BASO % 0.2 % (0.0-1.0); EOS # 0.1 10^3/uL (0.0-0.5); EOS % 0.4 % (0.0-3.0); HEMATOCRIT 41.4 % (36.0-47.0); HEMOGLOBIN 13.7 g/dl (12.0-15.5); LYMPH # 1.5 10^3/uL (1.5-5.0); LYMPH % 10.6 % (24.0-44.0); MEAN CORPUSCULAR HEMOGLOBIN 32.1 pg (27.0-33.0); MEAN CORPUSCULAR HGB CONC 33.1 g/dl (32.0-36.5); MONO # 0.5 10^3/uL (0.0-0.8); MONO % 3.5 % (2.0-8.0); NEUTROPHILS # 11.9 10^3/uL (1.5-8.5); NEUTROPHILS % 84.8 % (36.0-66.0); PLATELET COUNT, AUTOMATED 340 10^3/uL (150-450); RED BLOOD COUNT 4.27 10^6/uL (4.00-5.40)
[2022-08-30 14:39] LABS: HEMOGLOBIN A1c 5.4 %
[2022-08-30 15:00] LABS: ALBUMIN 3.9 GM/DL (3.2-5.2); ALT/SGPT 20 U/L (12-78); BILIRUBIN,TOTAL 0.3 MG/DL (0.2-1.0); BLOOD UREA NITROGEN 18 MG/DL (7-18); CARBON DIOXIDE LEVEL 28 MEQ/L (21-32); CHLORIDE LEVEL 107 MEQ/L (98-107); CHOLESTEROL LEVEL 198 MG/DL (<200); CREATININE FOR GFR 0.78 MG/DL (0.55-1.30); GLOMERULAR FILTRATION RATE > 60.0 (>58); GLUCOSE, FASTING 101 MG/DL (70-100); HDL CHOLESTEROL 60 MG/DL (>40); LDL CHOLESTEROL 100 MG/DL (<100); NON-HDL-C 138 MG/DL; POTASSIUM SERUM 4.4 MEQ/L (3.5-5.1); SODIUM LEVEL 140 MEQ/L (136-145); THYROID STIMULATING HORMONE 0.263 uIU/ML (0.358-3.740); TOTAL PROTEIN 7.2 GM/DL (6.4-8.2); TRIGLYCERIDES LEVEL 188 MG/DL (<150)
== END ==
LOC: M LABDRWAD 08:14
PROVIDERS: ATTEND Nurse Practitioner Family
DX: E78.5 Hyperlipidemia, unspecified (principal); E03.9 Hypothyroidism, unspecified; Z13.1 Encounter for screening for diabetes mellitus

== ENCOUNTER → 2022-09-13 | Outpatient (CLI) | payer OTHER | LOC: M WHC 14:57 | PROVIDERS: ATTEND Obstetrics & Gynecology | DX: N83.202 Unspecified ovarian cyst, left side (principal) ==

== ENCOUNTER → 2022-12-01 | Outpatient (REF) | payer OTHER ==
[~2022-12-01] MED LIST changes: -POTA10CA32 PO; +POTA10CA33 PO
[2022-12-01 17:32] LABS: BLOOD UREA NITROGEN 11 MG/DL (9-23); CREATININE FOR GFR 0.78 MG/DL (0.55-1.30); GLOMERULAR FILTRATION RATE > 60.0 (>51)
== END ==
LOC: M LABDRWAD 16:02
PROVIDERS: ATTEND Internal Medicine Pulmonary Disease
DX: R91.8 Other nonspecific abnormal finding of lung field (principal)

== ENCOUNTER → 2022-12-08 | Outpatient (CLI) | payer OTHER ==
[~2022-12-08] MED LIST changes: +ISOVUE-370 76% 100ML VIAL As Ordered ONE
== END ==
LOC: M RAD 16:34
PROVIDERS: ATTEND Internal Medicine Pulmonary Disease
DX: Z85.3 Personal history of malignant neoplasm of breast (principal); R91.8 Other nonspecific abnormal finding of lung field; J43.9 Emphysema, unspecified; J47.9 Bronchiectasis, uncomplicated; R59.0 Localized enlarged lymph nodes; Z90.10 Acquired absence of unspecified breast and nipple

== ENCOUNTER → 2023-01-05 | Outpatient (CLI) | payer OTHER ==
[~2023-01-05] MED LIST changes: -ISOVUE-370 76% 100ML VIAL As Ordered ONE
[2023-01-05 17:38] LABS: BASO % 0.4 % (0.0-1.0); EOS # 0.2 10^3/uL (0.0-0.5); EOS % 1.5 % (0.0-3.0); HEMATOCRIT 39.8 % (36.0-47.0); HEMOGLOBIN 12.9 g/dl (12.0-15.5); LYMPH # 2.9 10^3/uL (1.5-5.0); LYMPH % 29.1 % (24.0-44.0); MEAN CORPUSCULAR HEMOGLOBIN 31.4 pg (27.0-33.0); MEAN CORPUSCULAR HGB CONC 32.4 g/dl (32.0-36.5); MEAN CORPUSCULAR VOLUME 96.8 fl (80.0-96.0); MONO # 0.6 10^3/uL (0.0-0.8); MONO % 5.6 % (2.0-8.0); NEUTROPHILS # 6.4 10^3/uL (1.5-8.5); NEUTROPHILS % 63.1 % (36.0-66.0); PLATELET COUNT, AUTOMATED 327 10^3/uL (150-450); RED BLOOD COUNT 4.11 10^6/uL (4.00-5.40); WHITE BLOOD COUNT 10.1 10^3/uL (4.0-10.0)
[2023-01-05 17:49] LABS: ERYTHROCYTE SEDIMENTATION RATE 3 mm/hr (0-30)
[2023-01-05 17:59] LABS: IMMUNOGLOBULIN A 175.4 MG/DL (40-350); IMMUNOGLOBULIN M 57.7 MG/DL (50-300)
== END ==
LOC: M LABDRWAD 14:57
PROVIDERS: ATTEND Internal Medicine Pulmonary Disease
DX: R05.9 Cough, unspecified (principal)

== ENCOUNTER → 2023-02-27 | Outpatient (CLI) | payer OTHER ==
[~2023-02-27] MED LIST changes: +SENN-186 PO; -SENN-80 PO
[2023-02-27 13:24] LABS: BASO % 0.3 % (0.0-1.0); EOS # 0.1 10^3/uL (0.0-0.5); EOS % 0.4 % (0.0-3.0); HEMATOCRIT 40.6 % (36.0-47.0); HEMOGLOBIN 13.5 g/dl (12.0-15.5); LYMPH # 2.2 10^3/uL (1.5-5.0); LYMPH % 18.7 % (24.0-44.0); MEAN CORPUSCULAR HEMOGLOBIN 31.5 pg (27.0-33.0); MEAN CORPUSCULAR HGB CONC 33.3 g/dl (32.0-36.5); MEAN CORPUSCULAR VOLUME 94.9 fl (80.0-96.0); MONO # 0.6 10^3/uL (0.0-0.8); MONO % 5.1 % (2.0-8.0); NEUTROPHILS # 8.8 10^3/uL (1.5-8.5); NEUTROPHILS % 75.2 % (36.0-66.0); PLATELET COUNT, AUTOMATED 322 10^3/uL (150-450); RED BLOOD COUNT 4.28 10^6/uL (4.00-5.40); WHITE BLOOD COUNT 11.6 10^3/uL (4.0-10.0)
[2023-02-27 13:38] LABS: HEMOGLOBIN A1c 5.3 % (4.0-6.0)
[2023-02-27 13:54] LABS: ALBUMIN 4.1 G/DL (3.2-5.2); ALKALINE PHOSPHATASE 77 U/L (46-116); ALT/SGPT 13 U/L (7.0-40); AST/SGOT 17 U/L (<34); BILIRUBIN,TOTAL 0.3 MG/DL (0.3-1.2); BLOOD UREA NITROGEN 11 MG/DL (9-23); CALCIUM LEVEL 8.7 MG/DL (8.5-10.1); CARBON DIOXIDE LEVEL 26 MMOL/L (20-31); CHLORIDE LEVEL 109 MMOL/L (98-107); CHOLESTEROL LEVEL 168 MG/DL (<200); CHOLESTEROL RISK RATIO 2.85 (<5); CREATININE FOR GFR 0.81 MG/DL (0.55-1.30); GLOMERULAR FILTRATION RATE > 60.0 (>51); GLUCOSE, FASTING 96 MG/DL (60-100); HDL CHOLESTEROL 58.8 MG/DL (>40); LDL CHOLESTEROL 82.6 MG/DL (<100); NON-HDL-C 109.2 MG/DL; POTASSIUM SERUM 4.5 MMOL/L (3.5-5.1); SODIUM LEVEL 142 MMOL/L (136-145); THYROID STIMULATING HORMONE 0.087 uIU/ML (0.55-4.78); TOTAL PROTEIN 7.1 G/DL (5.7-8.2); TRIGLYCERIDES LEVEL 133 MG/DL (<150)
== END ==
LOC: M LABDRWAD 10:06
PROVIDERS: ATTEND Nurse Practitioner Family
DX: Z00.01 Encounter for general adult medical examination with abnormal findings (principal); Z13.1 Encounter for screening for diabetes mellitus; Z79.899 Other long term (current) drug therapy; E78.5 Hyperlipidemia, unspecified; E03.9 Hypothyroidism, unspecified

== ENCOUNTER 2023-03-20 12:23 | Emergency (ER) | payer OTHER ==
[~2023-03-20] VITALS: Ht 160 cm; Wt 65.6 kg
[2023-03-20] MEDS ORDERED: BACT400T PO (12:37)
[2023-03-20] MEDS ORDERED: MELA10CA6 PO (12:37)
[2023-03-20] MEDS ORDERED: NEOSPORIN OINT 0.9 GM PKT TOP ONE (15:20)
[2023-03-20] MEDS ORDERED: LIDOCAINE W/EPINEPHRINE 1% 20ML VIAL SC ONE (15:20)
[2023-03-20] MEDS ORDERED: BOOSTRIX VACCINE (TETANUS/DIPHTH/ACEL. PERTUSSIS) 0.5ML SYR IM.IMMUN ONE (15:25)
[2023-03-20] MEDS ORDERED: CEPH500T PO (16:33)
[2023-03-20 16:42] VITALS: BP 128/71
== END 2023-03-20 16:53 | disposition home or self-care (01) ==
LOC: M ED 12:23
DX: S51.012A Laceration without foreign body of left elbow, initial encounter (principal); S50.02XA Contusion of left elbow, initial encounter; V84.4XXA Person injured while boarding or alighting from special agricultural vehicle, initial encounter; Y92.89 Other specified places as the place of occurrence of the external cause; Y93.89 Activity, other specified; Y99.0 Civilian activity done for income or pay; Z91.040 Latex allergy status; Z91.013 Allergy to seafood; Z79.899 Other long term (current) drug therapy

== ENCOUNTER → 2023-05-05 | Outpatient (CLI) | payer OTHER ==
[~2023-05-05] MED LIST changes: +BACT400T PO; +CEPH500T PO; +MELA10CA6 PO; -POTA10CA33 PO; +POTA10CA60 PO
== END ==
LOC: M RAD 14:38
PROVIDERS: ATTEND Student in an Organized Health Care Education/Training Program
DX: M79.89 Other specified soft tissue disorders (principal)

== ENCOUNTER → 2023-05-28 | Outpatient (REF) | payer OTHER ==
[2023-05-28 12:59] LABS: BASO % 0.3 % (0.0-1.0); EOS # 0.1 10^3/uL (0.0-0.5); EOS % 0.9 % (0.0-3.0); HEMATOCRIT 40.1 % (36.0-47.0); HEMOGLOBIN 13.2 g/dl (12.0-15.5); LYMPH # 1.9 10^3/uL (1.5-5.0); LYMPH % 18.5 % (24.0-44.0); MEAN CORPUSCULAR HEMOGLOBIN 31.6 pg (27.0-33.0); MEAN CORPUSCULAR HGB CONC 32.9 g/dl (32.0-36.5); MEAN CORPUSCULAR VOLUME 95.9 fl (80.0-96.0); MONO # 0.6 10^3/uL (0.0-0.8); MONO % 5.8 % (2.0-8.0); NEUTROPHILS # 7.6 10^3/uL (1.5-8.5); NEUTROPHILS % 74.1 % (36.0-66.0); PLATELET COUNT, AUTOMATED 335 10^3/uL (150-450); RED BLOOD COUNT 4.18 10^6/uL (4.00-5.40); WHITE BLOOD COUNT 10.2 10^3/uL (4.0-10.0)
[2023-05-28 13:22] LABS: ALBUMIN 4.1 G/DL (3.2-5.2); ALKALINE PHOSPHATASE 75 U/L (46-116); ALT/SGPT 21 U/L (7.0-40); AST/SGOT 17 U/L (<34); BILIRUBIN,TOTAL 0.4 MG/DL (0.3-1.2); BLOOD UREA NITROGEN 14 MG/DL (9-23); CALCIUM LEVEL 8.9 MG/DL (8.5-10.1); CARBON DIOXIDE LEVEL 29 MMOL/L (20-31); CHLORIDE LEVEL 105 MMOL/L (98-107); CHOLESTEROL LEVEL 168 MG/DL (<200); CHOLESTEROL RISK RATIO 2.44 (<5); CREATININE FOR GFR 0.77 MG/DL (0.55-1.30); GLOMERULAR FILTRATION RATE > 60.0 (>51); GLUCOSE, FASTING 99 MG/DL (60-100); HDL CHOLESTEROL 68.8 MG/DL (>40); LDL CHOLESTEROL 78.4 MG/DL (<100); NON-HDL-C 99.2 MG/DL; POTASSIUM SERUM 3.6 MMOL/L (3.5-5.1); SODIUM LEVEL 143 MMOL/L (136-145); TOTAL PROTEIN 6.9 G/DL (5.7-8.2); TRIGLYCERIDES LEVEL 104 MG/DL (<150)
[2023-05-28 13:24] LABS: FREE T4 1.51 NG/DL (0.89-1.76); THYROID STIMULATING HORMONE 0.159 uIU/ML (0.55-4.78)
[2023-05-28 13:35] LABS: HEMOGLOBIN A1c 5.2 % (4.0-6.0)
== END ==
LOC: M LABDRWAD 12:26
PROVIDERS: ATTEND Registered Nurse
DX: Z00.01 Encounter for general adult medical examination with abnormal findings (principal); D72.829 Elevated white blood cell count, unspecified; R73.01 Impaired fasting glucose; E78.5 Hyperlipidemia, unspecified; E03.9 Hypothyroidism, unspecified

== ENCOUNTER → 2023-05-28 | Outpatient (REF) | payer OTHER ==
[2023-05-28 13:10] LABS: BASO % 0.3 % (0.0-1.0); EOS # 0.1 10^3/uL (0.0-0.5); EOS % 0.9 % (0.0-3.0); HEMATOCRIT 39.8 % (36.0-47.0); HEMOGLOBIN 13.5 g/dl (12.0-15.5); LYMPH # 1.8 10^3/uL (1.5-5.0); LYMPH % 17.5 % (24.0-44.0); MEAN CORPUSCULAR HEMOGLOBIN 32.6 pg (27.0-33.0); MEAN CORPUSCULAR HGB CONC 33.9 g/dl (32.0-36.5); MEAN CORPUSCULAR VOLUME 96.1 fl (80.0-96.0); MONO # 0.6 10^3/uL (0.0-0.8); MONO % 6.1 % (2.0-8.0); NEUTROPHILS # 7.7 10^3/uL (1.5-8.5); PLATELET COUNT, AUTOMATED 345 10^3/uL (150-450); RED BLOOD COUNT 4.14 10^6/uL (4.00-5.40); WHITE BLOOD COUNT 10.2 10^3/uL (4.0-10.0)
[2023-05-28 13:21] LABS: ALBUMIN 3.8 G/DL (3.2-5.2); ALKALINE PHOSPHATASE 72 U/L (46-116); ALT/SGPT 19 U/L (7.0-40); AST/SGOT 16 U/L (<34); BILIRUBIN,TOTAL 0.4 MG/DL (0.3-1.2); BLOOD UREA NITROGEN 15 MG/DL (9-23); CALCIUM LEVEL 9.7 MG/DL (8.5-10.1); CARBON DIOXIDE LEVEL 29 MMOL/L (20-31); CHLORIDE LEVEL 105 MMOL/L (98-107); CREATININE FOR GFR 0.77 MG/DL (0.55-1.30); GLOMERULAR FILTRATION RATE > 60.0 (>51); GLUCOSE, FASTING 96 MG/DL (60-100); SODIUM LEVEL 142 MMOL/L (136-145); TOTAL PROTEIN 6.8 G/DL (5.7-8.2)
== END ==
LOC: M LABDRWAD 12:24
PROVIDERS: ATTEND Internal Medicine
DX: C50.212 Malignant neoplasm of upper-inner quadrant of left female breast (principal)

== ENCOUNTER → 2023-06-14 | Outpatient (CLI) | payer OTHER | LOC: M WHC 06:56 | PROVIDERS: ATTEND Internal Medicine | DX: C50.212 Malignant neoplasm of upper-inner quadrant of left female breast (principal) ==

== ENCOUNTER → 2023-06-15 | Outpatient (CLI) | payer OTHER ==
[~2023-06-15] MED LIST changes: +ISOVUE-370 76% 100ML VIAL As Ordered ONE
== END ==
LOC: M RAD 16:48
PROVIDERS: ATTEND Internal Medicine Pulmonary Disease
DX: R59.0 Localized enlarged lymph nodes (principal)
CPT/HCPCS: 71260; Q9967

== ENCOUNTER → 2023-07-23 | Outpatient (CLI) | payer BC ==
[~2023-07-23] MED LIST changes: -ISOVUE-370 76% 100ML VIAL As Ordered ONE
[2023-08-01 18:07] LABS: ASPERGILLUS FLAVUS ABY Negative (Neg:<1:1); ASPERGILLUS FUMIGATUS ABY Negative (Neg:<1:1); ASPERGILLUS NIGER ABY Negative (Neg:<1:1); BLASTOMYCES ABY Negative (Neg:<1:1)
== END ==
LOC: M LAB 16:17
PROVIDERS: ATTEND Internal Medicine Pulmonary Disease
DX: R05.9 Cough, unspecified (principal)

== ENCOUNTER → 2023-08-23 | Outpatient (CLI) | payer BC | LOC: M ADAMS 10:32 | PROVIDERS: ATTEND Internal Medicine Pulmonary Disease | DX: R07.1 Chest pain on breathing (principal); R91.8 Other nonspecific abnormal finding of lung field ==

== ENCOUNTER → 2023-09-27 | Outpatient (CLI) | payer BC ==
[~2023-09-27] MED LIST changes: +PROHANCE 279.3MG/ML 15ML VIAL As Ordered ONE
== END ==
LOC: M RAD 14:38
PROVIDERS: ATTEND Plastic Surgery Surgery of the Hand
DX: T85.44XA Capsular contracture of breast implant, initial encounter (principal); Z98.82 Breast implant status; Z85.3 Personal history of malignant neoplasm of breast
CPT/HCPCS: A9576; C8908

== ENCOUNTER → 2023-11-13 | Outpatient (CLI) | payer BC ==
[~2023-11-13] MED LIST changes: -PROHANCE 279.3MG/ML 15ML VIAL As Ordered ONE
[2023-11-13 17:20] LABS: BASO % 0.3 % (0.0-1.0); EOS % 0.3 % (0.0-3.0); HEMATOCRIT 38.2 % (36.0-47.0); HEMOGLOBIN 12.5 g/dl (12.0-15.5); LYMPH # 2.3 10^3/uL (1.5-5.0); LYMPH % 19.3 % (24.0-44.0); MEAN CORPUSCULAR HEMOGLOBIN 30.5 pg (27.0-33.0); MEAN CORPUSCULAR HGB CONC 32.7 g/dl (32.0-36.5); MEAN CORPUSCULAR VOLUME 93.2 fl (80.0-96.0); MONO # 0.6 10^3/uL (0.0-0.8); MONO % 5.4 % (2.0-8.0); NEUTROPHILS # 8.7 10^3/uL (1.5-8.5); NEUTROPHILS % 74.4 % (36.0-66.0); PLATELET COUNT, AUTOMATED 309 10^3/uL (150-450); WHITE BLOOD COUNT 11.7 10^3/uL (4.0-10.0)
[2023-11-13 18:11] LABS: BLOOD UREA NITROGEN 12 MG/DL (9-23); CARBON DIOXIDE LEVEL 28 MMOL/L (20-31); CHLORIDE LEVEL 108 MMOL/L (98-107); CREATININE FOR GFR 0.68 MG/DL (0.55-1.30); GLOMERULAR FILTRATION RATE > 60.0 (>51); GLUCOSE, FASTING 98 MG/DL (60-100); POTASSIUM SERUM 4.2 MMOL/L (3.5-5.1); SODIUM LEVEL 142 MMOL/L (136-145)
== END ==
LOC: M LAB 16:35
PROVIDERS: ATTEND Registered Nurse
DX: Z01.818 Encounter for other preprocedural examination (principal)

== ENCOUNTER 2023-12-11 10:29 | Day surgery (SDC) | payer BC ==
[~2023-12-11] VITALS: Ht 160 cm; Wt 64.1 kg
[~2023-12-11 10:29] MED LIST changes: +HEPARIN SOD (PORCINE) 5000UNITS/ML 1ML VIAL/SYRINGE SQ ONE; +IPRA6SP; +LIDOCAINE 2% 100MG/5ML SDV (FOR ANES.) As Ordered ONE; +MELO7.5T35 PO; +MESA0.37 PO; +MIDAZOLAM INJ 2MG/2ML VIAL As Ordered ONE; +ONDANSETRON 4MG 2ML VIAL As Ordered ONE; +ROCURONIUM BROMIDE 50MG/5ML VIAL As Ordered ONE; +SUGAMMADEX SODIUM 500 MG/5 ML VIAL (BRIDION) As Ordered ONE; +[UNRECOGNIZED DRUG - CODE] PR; +ceFAZolin SOD 2 GM in IV 1 EA IV ONE; +fentaNYL 250 MCG/5 ML INJECTION As Ordered ONE; +propofoL 200 MG/20 ML VIAL As Ordered ONE
[2023-12-11] MEDS ORDERED: LR 1,000 ML IV SCH ×2 (11:05→17:00)
[2023-12-11] MEDS ORDERED: SCOPOLAMINE 1MG TRANSDERMAL PATCH TOP ONE (11:45)
[2023-12-11] MEDS ORDERED: GENTAMICIN SULF 80MG/2ML VIAL As Ordered ONE ×2 (12:23→16:02)
[2023-12-11] MEDS ORDERED: EPINEPHrine INJ 1 MG/ML 1ML AMP As Ordered ONE (12:23)
[2023-12-11] MEDS ORDERED: LIDOCAINE 1% MDV 20ML VIAL As Ordered ONE (12:23)
[2023-12-11] MEDS ORDERED: SEVOFLURANE INHAL SOLN 250 ML BTL As Ordered ONE (12:30)
[2023-12-11] MEDS ORDERED: dexmedeTOMIDine (4MCG/ML)200MCG/50ML BTL (PRECEDEX) As Ordered ONE (12:31)
[2023-12-11] MEDS ORDERED: PHENYLephrine 500MCG 5ML (100MCG/ML) SYRINGE As Ordered ONE (13:54)
[2023-12-11] MEDS ORDERED: ceFAZolin 1GM VIAL As Ordered ONE (13:55)
[2023-12-11] MEDS ORDERED: GLYCOPYRROLATE INJ 0.2 MG/ML 2 ML VIAL As Ordered ONE (13:57)
[2023-12-11] MEDS ORDERED: ROCURONIUM BROMIDE 50MG/5ML VIAL As Ordered ONE ×2 (14:21→16:26)
[2023-12-11] MEDS ORDERED: ACETAMINOPHEN 1000MG 100ML IV BAG As Ordered ONE (14:24)
[2023-12-11] MEDS ORDERED: ePHEDrine SULFATE 25 MG/5 ML(5MG/ML) SYRINGE As Ordered ONE (15:04)
[2023-12-11] MEDS ORDERED: HYDROmorphone HCL 2MG/ML 1ML VIAL As Ordered ONE (15:38)
[2023-12-11] MEDS ORDERED: DESFLURANE 240 ML INHALANT As Ordered ONE (15:40)
[2023-12-11] MEDS ORDERED: METOCLOPRAMIDE INJ 10MG/2ML VIAL As Ordered ONE (15:42)
[2023-12-11] MEDS ORDERED: oxyCODONE 5MG TAB PO PRN (17:00)
[2023-12-11] MEDS ORDERED: ONDANSETRON 4MG 2ML VIAL IV PRN (17:00)
[2023-12-11] MEDS ORDERED: fentaNYL 100 MCG/2 ML INJECTION IV PRN (17:00)
[2023-12-11] MEDS: HYDROMORPHONE HCL 0.5 MG/ 0.5 ML SYRINGE IV PRN ×3 (17:44→18:31)
[2023-12-11] MEDS ORDERED: OXYC1TAB23 PO (18:44)
[2023-12-11] MEDS ORDERED: AUGM500T34 PO (18:44)
[2023-12-11 19:00] VITALS: BP 116/67; TEMP 97.2; O2SAT 100
== END 2023-12-11 19:18 | disposition home or self-care (01) ==
LOC: M SDC 10:29
PROVIDERS: ATTEND Plastic Surgery Surgery of the Hand
DX: N65.0 Deformity of reconstructed breast (principal); T85.44XA Capsular contracture of breast implant, initial encounter; Z85.3 Personal history of malignant neoplasm of breast; N64.89 Other specified disorders of breast; T85.848A Pain due to other internal prosthetic devices, implants and grafts, initial encounter; Y81.2 Prosthetic and other implants, materials and accessory general- and plastic-surgery devices associated with adverse incidents; I10 Essential (primary) hypertension; Z79.810 Long term (current) use of selective estrogen receptor modulators (SERMs); Z92.21 Personal history of antineoplastic chemotherapy; E03.9 Hypothyroidism, unspecified; J44.9 Chronic obstructive pulmonary disease, unspecified; Z79.890 Hormone replacement therapy; Z79.899 Other long term (current) drug therapy; Z87.891 Personal history of nicotine dependence; Y92.9 Unspecified place or not applicable
CPT/HCPCS: 15771; 15772; 19380; 88300; 88302; C9290; J0131; J0171; J0665; J0690; J1100; J1170; J1580; J2250; J2371; J2405; J2765; J3010; L8600

== ENCOUNTER → 2024-01-18 | Outpatient (REF) | payer BC ==
[~2024-01-18] MED LIST changes: +AUGM500T34 PO; -HEPARIN SOD (PORCINE) 5000UNITS/ML 1ML VIAL/SYRINGE SQ ONE; -LIDOCAINE 2% 100MG/5ML SDV (FOR ANES.) As Ordered ONE; -MIDAZOLAM INJ 2MG/2ML VIAL As Ordered ONE; -ONDANSETRON 4MG 2ML VIAL As Ordered ONE; -ROCURONIUM BROMIDE 50MG/5ML VIAL As Ordered ONE; -SUGAMMADEX SODIUM 500 MG/5 ML VIAL (BRIDION) As Ordered ONE; -ceFAZolin SOD 2 GM in IV 1 EA IV ONE; -fentaNYL 250 MCG/5 ML INJECTION As Ordered ONE; -propofoL 200 MG/20 ML VIAL As Ordered ONE
[2024-01-18 14:05] LABS: HEMATOCRIT 39.6 % (36.0-47.0); MEAN CORPUSCULAR HEMOGLOBIN 31.3 pg (27.0-33.0); MEAN CORPUSCULAR HGB CONC 32.8 g/dl (32.0-36.5); MEAN CORPUSCULAR VOLUME 95.4 fl (80.0-96.0); PLATELET COUNT, AUTOMATED 309 10^3/uL (150-450); RED BLOOD COUNT 4.15 10^6/uL (4.00-5.40); WHITE BLOOD COUNT 6.2 10^3/uL (4.0-10.0)
[2024-01-18 14:33] LABS: ALBUMIN 3.3 G/DL (3.2-5.2); ALKALINE PHOSPHATASE 76 U/L (46-116); ALT/SGPT 29 U/L (7.0-40); AST/SGOT 24 U/L (<34); BILIRUBIN,TOTAL 0.4 MG/DL (0.3-1.2); BLOOD UREA NITROGEN 15 MG/DL (9-23); CALCIUM LEVEL 7.8 MG/DL (8.5-10.1); CARBON DIOXIDE LEVEL 27 MMOL/L (20-31); CHLORIDE LEVEL 111 MMOL/L (98-107); CHOLESTEROL LEVEL 154 MG/DL (<200); CHOLESTEROL RISK RATIO 2.58 (<5); CREATININE FOR GFR 0.74 MG/DL (0.55-1.30); GLOMERULAR FILTRATION RATE > 60.0 (>51); GLUCOSE, FASTING 86 MG/DL (60-100); HDL CHOLESTEROL 59.5 MG/DL (>40); LDL CHOLESTEROL 78.9 MG/DL (<100); NON-HDL-C 94.5 MG/DL; POTASSIUM SERUM 4.4 MMOL/L (3.5-5.1); SODIUM LEVEL 142 MMOL/L (136-145); TOTAL PROTEIN 5.9 G/DL (5.7-8.2); TRIGLYCERIDES LEVEL 78 MG/DL (<150)
[2024-01-18 14:36] LABS: FREE T4 1.36 NG/DL (0.89-1.76); THYROID STIMULATING HORMONE 0.027 uIU/ML (0.55-4.78)
== END ==
LOC: M LABDRWAD 13:18
PROVIDERS: ATTEND Registered Nurse
DX: Z13.220 Encounter for screening for lipoid disorders (principal); E89.0 Postprocedural hypothyroidism; Z79.899 Other long term (current) drug therapy

== ENCOUNTER → 2024-01-21 | Outpatient (REF) | payer BC ==
[2024-01-21 19:03] LABS: CALCIUM LEVEL 8.6 MG/DL (8.5-10.1); MAGNESIUM LEVEL 1.9 MG/DL (1.8-2.4); PHOSPHORUS LEVEL 3.4 MG/DL (2.5-4.9)
[2024-01-21 19:04] LABS: PTH INTACT 29.4 PG/ML (18.5-88.0)
== END ==
LOC: M LABDRWAD 18:05
PROVIDERS: ATTEND Registered Nurse
DX: E83.51 Hypocalcemia (principal)

== ENCOUNTER → 2024-02-27 | Outpatient (REF) | payer BC | LOC: M LAB REF 10:27 | PROVIDERS: ATTEND Registered Nurse | DX: R19.5 Other fecal abnormalities (principal) ==

== ENCOUNTER 2024-04-03 11:02 | Emergency (ER) | payer BC, MEDICAID, OTHER, SELFPAY ==
[~2024-04-03] VITALS: Ht 160 cm; Wt 69.5 kg
[~2024-04-03 11:02] MED LIST changes: -POTA10CA60 PO; +POTA10CA70 PO
[2024-04-03 12:37] LABS: BASO % 0.4 % (0.0-1.0); EOS # 0.1 10^3/uL (0.0-0.5); EOS % 0.8 % (0.0-3.0); HEMATOCRIT 38.5 % (36.0-47.0); LYMPH # 2.3 10^3/uL (1.5-5.0); LYMPH % 32.1 % (24.0-44.0); MEAN CORPUSCULAR HGB CONC 33.8 g/dl (32.0-36.5); MEAN CORPUSCULAR VOLUME 91.7 fl (80.0-96.0); MONO # 0.6 10^3/uL (0.0-0.8); MONO % 7.7 % (2.0-8.0); NEUTROPHILS # 4.2 10^3/uL (1.5-8.5); NEUTROPHILS % 58.7 % (36.0-66.0); PLATELET COUNT, AUTOMATED 286 10^3/uL (150-450); WHITE BLOOD COUNT 7.2 10^3/uL (4.0-10.0)
[2024-04-03] MEDS: MORPHINE 4 MG/ML 1ML VIAL IV ONE (13:13)
[2024-04-03] MEDS: ONDANSETRON 4MG 2ML VIAL IV ONE (13:13)
[2024-04-03] MEDS ORDERED: ISOVUE-370 76% 100ML VIAL As Ordered ONE (13:41)
[2024-04-03 13:54] LABS: LIPASE 47 U/L (12-53)
[2024-04-03 13:56] LABS: ALKALINE PHOSPHATASE 84 U/L (46-116); ALT/SGPT 18 U/L (7.0-40); AST/SGOT 17 U/L (<34); BILIRUBIN,DIRECT < 0.1 MG/DL (<0.4); BILIRUBIN,TOTAL 0.4 MG/DL (0.3-1.2); TOTAL PROTEIN 6.7 G/DL (5.7-8.2)
[2024-04-03] MEDS: GASTROGRAFIN SOLUTION 30ML PO SCH (14:00)
[2024-04-03 16:22] VITALS: BP 108/71; TEMP 98.9; O2SAT 97
== END 2024-04-03 16:26 | disposition home or self-care (01) ==
LOC: M ED 11:02
DX: R10.32 Left lower quadrant pain (principal); Z85.3 Personal history of malignant neoplasm of breast; Z79.899 Other long term (current) drug therapy; Z91.013 Allergy to seafood; Z91.040 Latex allergy status
CPT/HCPCS: 74177; 76830; 76856; 80047; 80076; 81001; 83605; 83690; 85025; 93976; 96374; 96375; 99284; J2405; Q9963; Q9967

== ENCOUNTER → 2024-05-07 | Outpatient (REF) | payer MEDICAID, OTHER ==
[~2024-05-07] MED LIST changes: +ONDA-284 PO; -ONDA8TAB8 PO
== END ==
LOC: M LAB REF 17:09 → EEVIPCON 17:09
PROVIDERS: ATTEND Otolaryngology
DX: J34.81 Nasal mucositis (ulcerative) (principal); J34.2 Deviated nasal septum; J34.3 Hypertrophy of nasal turbinates

== ENCOUNTER → 2024-06-25 | Outpatient (REF) | payer OTHER ==
[2024-06-25 15:34] LABS: APPEARANCE, URINE CLEAR (CLEAR); BACTERIA, URINE AUTO NEGATIVE (NEGATIVE); BILIRUBIN, URINE AUTO NEGATIVE (NEGATIVE); BLOOD, URINE BLOOD 1+ (NEGATIVE); COLOR, URINE YELLOW (YELLOW); GLUCOSE, URINE (UA) AUTO NEGATIVE (NEGATIVE); KETONE, URINE AUTO NEGATIVE (NEGATIVE); LEUKOCYTE ESTERASE, URINE AUTO NEGATIVE (NEGATIVE); NITRITE, URINE AUTO NEGATIVE (NEGATIVE); PROTEIN, URINE AUTO NEGATIVE (NEGATIVE); RBC, URINE AUTO 1 /HPF (0-3); SPECIFIC GRAVITY URINE AUTO 1.008 (1.002-1.035); SQUAMOUS EPITHELIAL CELL UR AU 1 /HPF (0-6); UROBILINOGEN, URINE AUTO 0.2 mg/dL (0.0-2.0); WBC, URINE AUTO 1 /HPF (0-3)
== END ==
LOC: M PLALAB 12:55
PROVIDERS: ATTEND Obstetrics & Gynecology
DX: N95.8 Other specified menopausal and perimenopausal disorders (principal)

== ENCOUNTER → 2024-07-04 | Outpatient (CLI) | payer OTHER | LOC: M WHC 13:52 | PROVIDERS: ATTEND Obstetrics & Gynecology | DX: N83.202 Unspecified ovarian cyst, left side (principal) ==

== ENCOUNTER → 2024-08-25 | Outpatient (CLI) | payer OTHER | LOC: M RAD 13:22 | PROVIDERS: ATTEND Internal Medicine Pulmonary Disease | DX: R93.89 Abnormal findings on diagnostic imaging of other specified body structures (principal) ==

== ENCOUNTER → 2024-09-13 | Outpatient (CLI) | payer OTHER | LOC: M LAB 12:28 | PROVIDERS: ATTEND Internal Medicine Gastroenterology | DX: R10.13 Epigastric pain (principal) ==

== ENCOUNTER → 2024-09-22 | Outpatient (CLI) | payer OTHER ==
[~2024-09-22] MED LIST changes: +PROHANCE 279.3MG/ML 15ML VIAL ONE
== END ==
LOC: M PLAIMG 14:29
PROVIDERS: ATTEND Physician Assistant Surgical
DX: N63.22 Unspecified lump in the left breast, upper inner quadrant (principal); R92.8 Other abnormal and inconclusive findings on diagnostic imaging of breast; Z98.82 Breast implant status; Z85.3 Personal history of malignant neoplasm of breast; Z90.13 Acquired absence of bilateral breasts and nipples
CPT/HCPCS: 77049; A9576

== ENCOUNTER → 2025-01-08 | Outpatient (CLI) | payer OTHER ==
[~2025-01-08] MED LIST changes: -PROHANCE 279.3MG/ML 15ML VIAL ONE
[2025-01-08 09:11] VITALS: TEMP 98.2
[2025-01-08 10:15] VITALS: BP 128/84
== END ==
LOC: M WHCPRO 08:25
PROVIDERS: ATTEND Physician Assistant
DX: N63.22 Unspecified lump in the left breast, upper inner quadrant (principal); Z85.3 Personal history of malignant neoplasm of breast

== ENCOUNTER → 2025-01-22 | Outpatient (CLI) | payer OTHER ==
[2025-01-22 07:43] VITALS: TEMP 98.5
[2025-01-22 08:55] VITALS: BP 128/88; O2SAT 100
== END ==
LOC: M WHCPRO 07:37
PROVIDERS: ATTEND Physician Assistant
DX: R92.8 Other abnormal and inconclusive findings on diagnostic imaging of breast (principal); Z95.3 Presence of xenogenic heart valve; Z48.89 Encounter for other specified surgical aftercare; N63.22 Unspecified lump in the left breast, upper inner quadrant

== ENCOUNTER → 2025-02-09 | Outpatient (CLI) | payer OTHER | LOC: M PLARAD 08:29 | PROVIDERS: ATTEND Internal Medicine | DX: C50.212 Malignant neoplasm of upper-inner quadrant of left female breast (principal) | CPT/HCPCS: 78815; A9552 ==

== ENCOUNTER → 2025-02-11 | Outpatient (CLI) | payer OTHER ==
[2025-02-11 13:56] LABS: HEMATOCRIT 41.4 % (36.0-47.0); HEMOGLOBIN 13.6 g/dl (12.0-15.5); MEAN CORPUSCULAR HEMOGLOBIN 30.3 pg (27.0-33.0); MEAN CORPUSCULAR HGB CONC 32.9 g/dl (32.0-36.5); MEAN CORPUSCULAR VOLUME 92.2 fl (80.0-96.0); PLATELET COUNT, AUTOMATED 401 10^3/uL (150-450); RED BLOOD COUNT 4.49 10^6/uL (4.00-5.40); WHITE BLOOD COUNT 11.4 10^3/uL (4.0-10.0)
[2025-02-11 14:03] LABS: THYROID STIMULATING HORMONE 0.156 uIU/ML (0.55-4.78)
[2025-02-11 14:09] LABS: ALBUMIN 3.5 G/DL (3.2-5.2); ALKALINE PHOSPHATASE 73 U/L (35-104); ALT/SGPT 24 U/L (7.0-40); AST/SGOT 16 U/L (<34); BILIRUBIN,TOTAL 0.3 MG/DL (0.3-1.2); BLOOD UREA NITROGEN 17 MG/DL (9-23); CALCIUM LEVEL 8.8 MG/DL (8.5-10.1); CARBON DIOXIDE LEVEL 28 MMOL/L (20-31); CHLORIDE LEVEL 105 MMOL/L (98-107); CHOLESTEROL LEVEL 219 MG/DL (<200); CHOLESTEROL RISK RATIO 3.34 (<5); CREATININE FOR GFR 0.76 MG/DL (0.55-1.30); GLOMERULAR FILTRATION RATE > 60.0 (>51); GLUCOSE, FASTING 88 MG/DL (60-100); HDL CHOLESTEROL 65.5 MG/DL (>40); LDL CHOLESTEROL 118.1 MG/DL (<100); NON-HDL-C 153.5 MG/DL; POTASSIUM SERUM 3.8 MMOL/L (3.5-5.1); SODIUM LEVEL 141 MMOL/L (136-145); TOTAL PROTEIN 6.9 G/DL (5.7-8.2); TRIGLYCERIDES LEVEL 177 MG/DL (<150)
== END ==
LOC: M ADAMS 08:42
PROVIDERS: ATTEND Registered Nurse
DX: I10 Essential (primary) hypertension (principal); E89.0 Postprocedural hypothyroidism; E78.5 Hyperlipidemia, unspecified

== ENCOUNTER → 2025-02-17 | Outpatient (CLI) | payer OTHER | LOC: M WHC 08:00 | PROVIDERS: ATTEND Registered Nurse | DX: Z13.820 Encounter for screening for osteoporosis (principal); C50.212 Malignant neoplasm of upper-inner quadrant of left female breast ==

== ENCOUNTER → 2025-02-17 | Outpatient (REF) | payer OTHER ==
[2025-02-17 10:37] LABS: URIC ACID 3.9 MG/DL (3.1-7.8)
[2025-02-17 10:40] LABS: C REACTIVE PROTEIN QUANTITATIV < 0.50 MG/DL (<1.0)
[2025-02-17 10:42] LABS: RHEUMATOID FACTOR QUANT < 3.5 IU/ML (<14)
== END ==
LOC: M LABDRAWP 10:06
PROVIDERS: ATTEND Registered Nurse
DX: M25.562 Pain in left knee (principal); R21 Rash and other nonspecific skin eruption

== ENCOUNTER → 2025-05-21 | Outpatient (REF) | payer OTHER ==
[2025-05-21 19:17] LABS: ALT/SGPT 21.0 U/L (7.0-40); AST/SGOT 29.0 U/L (<34); CALCIUM LEVEL 9.4 MG/DL (8.5-10.1); CARBON DIOXIDE LEVEL 28.0 MMOL/L (20-31); CHLORIDE LEVEL 104.0 MMOL/L (98-107); CREATININE FOR GFR 0.8 MG/DL (0.55-1.30); GLOMERULAR FILTRATION RATE 88.6 (>51); POTASSIUM SERUM 3.4 MMOL/L (3.5-5.1); SODIUM LEVEL 143.0 MMOL/L (136-145)
== END ==
LOC: M LAB 17:30
PROVIDERS: ATTEND Obstetrics & Gynecology
DX: N95.1 Menopausal and female climacteric states (principal)

== ENCOUNTER → 2025-06-24 | Outpatient (CLI) | payer OTHER ==
[~2025-06-24] MED LIST changes: +ANAS1TAB2 PO; +FEZO45TA PO; +FURO20TA2 PO; +HYDR12.510 PO; +SYNT125T PO
== END ==
LOC: M RAD 15:35
PROVIDERS: ATTEND Nurse Practitioner Family
DX: E03.8 Other specified hypothyroidism (principal)

== ENCOUNTER 2025-07-07 10:49 | Day surgery (SDC) | payer OTHER ==
[~2025-07-07] VITALS: Ht 160 cm; Wt 72.6 kg
[~2025-07-07 10:49] MED LIST changes: -IBUP-1022 PO; +IBUP600T42 PO
[2025-07-07] MEDS: LR 1,000 ML IV SCH (12:02)
[2025-07-07] MEDS ORDERED: MIDAZOLAM INJ 2 MG/2 ML VIAL As Ordered ONE (12:13)
[2025-07-07] MEDS ORDERED: LIDOCAINE 2% 100 MG/5 ML SDV (FOR ANES.) As Ordered ONE (12:14)
[2025-07-07] MEDS ORDERED: KETOROLAC 30 MG/ML 1 ML VIAL As Ordered ONE (12:15)
[2025-07-07] MEDS ORDERED: ACETAMINOPHEN 1000MG/100ML IV BAG As Ordered ONE (12:15)
[2025-07-07] MEDS ORDERED: ONDANSETRON 4MG 2ML VIAL As Ordered ONE (12:15)
[2025-07-07] MEDS ORDERED: dexAMETHasone 4 MG/ML 1 ML VIAL As Ordered ONE (12:15)
[2025-07-07] MEDS: SCOPOLAMINE 1MG TRANSDERMAL PATCH TOP ONE (13:25)
[2025-07-07] MEDS: ceFAZolin SOD 2 GM IV ONCE IV ONE (14:15)
[2025-07-07] MEDS: GENTAMICIN SULF 80 MG/2 ML VIAL As Ordered ONE (14:51)
[2025-07-07] MEDS: EPINEPHrine INJ 1 MG/ML 1ML AMP As Ordered ONE (14:54)
[2025-07-07] MEDS: LIDOCAINE 1% MDV 20 ML VIAL As Ordered ONE (14:55)
[2025-07-07] MEDS ORDERED: AMOX500T2 PO (16:15)
[2025-07-07] MEDS ORDERED: TRAM50TA2 PO (16:15)
[2025-07-07] MEDS: ONDANSETRON 4MG 2ML VIAL IV PRN (16:30)
[2025-07-07 17:53] VITALS: BP 125/78; TEMP 97.9; O2SAT 100
== END 2025-07-07 18:04 | disposition home or self-care (01) ==
LOC: M SDC 10:49
PROVIDERS: ATTEND Plastic Surgery Surgery of the Hand
DX: N65.1 Disproportion of reconstructed breast (principal); Z85.3 Personal history of malignant neoplasm of breast; Z90.13 Acquired absence of bilateral breasts and nipples; I10 Essential (primary) hypertension; E89.0 Postprocedural hypothyroidism; G43.909 Migraine, unspecified, not intractable, without status migrainosus; Z91.040 Latex allergy status; Z91.013 Allergy to seafood; Z79.899 Other long term (current) drug therapy; Z79.890 Hormone replacement therapy
CPT/HCPCS: 15771; 15772; 19380; J0131; J0166; J0690; J1100; J1580; J2175; J2250; J2405; J3010

== ENCOUNTER → 2025-07-09 | Outpatient (CLI) | payer OTHER ==
[~2025-07-09] MED LIST changes: +AMOX500T2 PO; +TRAM50TA2 PO
[2025-07-09 14:43] LABS: CORTISOL AM 8.2 UG/DL (4.3-22.4)
[2025-07-09 14:46] LABS: FREE T4 2.3 NG/DL (0.89-1.76)
[2025-07-09 14:48] LABS: LUTEINIZING HORMONE 24.4 mIU/ML; TESTOSTERONE 7.0 NG/DL (14-76)
== END ==
LOC: M LABDRWAD 10:57
PROVIDERS: ATTEND Nurse Practitioner Family
DX: N95.1 Menopausal and female climacteric states (principal); E89.0 Postprocedural hypothyroidism; R63.5 Abnormal weight gain

== ENCOUNTER → 2025-08-25 | Outpatient (CLI) | payer OTHER ==
[2025-08-25 14:55] LABS: FREE T4 2.33 NG/DL (0.89-1.76)
[2025-09-02 14:03] LABS: FREE T4 BY DIALYSIS DIRECT 4.5 ng/dL (0.9-2.2)
== END ==
LOC: M LABDRWAD 08:57
PROVIDERS: ATTEND Nurse Practitioner Family
DX: E89.0 Postprocedural hypothyroidism (principal)

== ENCOUNTER → 2025-09-29 | Outpatient (CLI) | payer OTHER | LOC: M ADAMS 11:30 | PROVIDERS: ATTEND Registered Nurse | DX: M54.50 Low back pain, unspecified (principal); M47.816 Spondylosis without myelopathy or radiculopathy, lumbar region; M25.78 Osteophyte, vertebrae ==

== ENCOUNTER → 2025-09-29 | Outpatient (REF) | payer OTHER ==
[2025-09-29 13:32] LABS: INR 1.01
[2025-09-29 13:34] LABS: C REACTIVE PROTEIN QUANTITATIV < 0.50 MG/DL (<1.0)
[2025-09-29 13:44] LABS: FREE T4 1.57 NG/DL (0.89-1.76)
[2025-09-29 14:56] LABS: THYROXINE (T4) 11.9 UG/DL (4.5-10.9)
[2025-09-29 16:30] LABS: THYROGLOBULIN ANTIBODY < 15.0 U/ML (<60.0); THYROID PEROXIDASE ANTIBODY 37 U/ML (<60.0)
[2025-09-29 16:32] LABS: T UPTAKE 31.0 % (22.5-37.0)
[2025-10-01 12:32] LABS: ANTI SMITH(Sm) AB <1.0 NEG AI (<1.0 NEG); SSA SJOGRENS A <1.0 NEG AI (<1.0 NEG); SSB SJOGRENS B <1.0 NEG AI (<1.0 NEG)
[2025-10-02 17:58] LABS: THYROID STIMULATING IMMUNOGLOB < 89 % baseline (<140)
== END ==
LOC: M SFHCADAM 11:01
PROVIDERS: ATTEND Physician Assistant
DX: D69.2 Other nonthrombocytopenic purpura (principal); R21 Rash and other nonspecific skin eruption; Z82.69 Family history of other diseases of the musculoskeletal system and connective tissue

== ENCOUNTER → 2025-10-05 | Outpatient (REF) | payer OTHER | LOC: M LAB REF 10:42 | PROVIDERS: ATTEND Plastic Surgery Surgery of the Hand | DX: D17.23 Benign lipomatous neoplasm of skin and subcutaneous tissue of right leg (principal) ==

== ENCOUNTER → 2025-10-16 | Outpatient (CLI) | payer OTHER ==
[2025-10-16 17:43] LABS: ALT/SGPT 26 U/L (7.0-40); AST/SGOT 25 U/L (<34)
== END ==
LOC: M PLALAB 15:07
PROVIDERS: ATTEND Physician Assistant
DX: Z76.0 Encounter for issue of repeat prescription (principal)

== ENCOUNTER → 2025-10-16 | Outpatient (CLI) | payer OTHER ==
[2025-10-16 17:46] LABS: FREE T4 1.67 NG/DL (0.89-1.76)
== END ==
LOC: M PLALAB 15:05
PROVIDERS: ATTEND Nurse Practitioner Family
DX: E89.0 Postprocedural hypothyroidism (principal)

== ENCOUNTER → 2025-10-16 | Outpatient (CLI) | payer OTHER | LOC: M WHC 14:08 | PROVIDERS: ATTEND Physician Assistant | DX: N83.202 Unspecified ovarian cyst, left side (principal); E89.0 Postprocedural hypothyroidism ==

== ENCOUNTER → 2025-10-20 | Outpatient (CLI) | payer OTHER | LOC: M PLAIMG 13:29 | PROVIDERS: ATTEND Internal Medicine Pulmonary Disease | DX: J47.9 Bronchiectasis, uncomplicated (principal); R93.89 Abnormal findings on diagnostic imaging of other specified body structures ==

== ENCOUNTER → 2025-11-11 | Outpatient (CLI) | payer OTHER ==
[~2025-11-11] MED LIST changes: +PROHANCE 279.3MG/ML 15ML VIAL ONE
== END ==
LOC: M PLAIMG 08:46
PROVIDERS: ATTEND Physician Assistant
DX: Z85.3 Personal history of malignant neoplasm of breast (principal); Z98.82 Breast implant status
CPT/HCPCS: 77049; A9579